=== PATIENT | female | born 1955 | race Caucasian/White ===

== ENCOUNTER 2017-07-16 12:00 | Outpatient (RCR) | payer OTHER, SELFPAY ==
[2017-06-21 00:41] VITALS: BP 174/73; PULSE 69; RESP 16; TEMP 36.8; BMI 51.7
[2017-07-09 12:04] VITALS: PULSE 79; RESP 18; TEMP 37; BMI 51.7
--- NOTE | 2017-07-09 17:36 | PCM.WC.PN ---
(1) Dehiscence of external surgical wound Status: Chronic Current Visit: Yes Qualifiers: Encounter type: subsequent encounter Code(s): T81.31XA - Disruption of external operation (surgical) wound, not elsewhere classified, initial encounter (2) Morbid obesity due to excess calories Status: Chronic Current Visit: Yes Code(s): E66.01 - Morbid (severe) obesity due to excess calories (3) Lymphedema of both lower extremities Status: Chronic Current Visit: Yes Code(s): I89.0 - Lymphedema, not elsewhere classified Type of Wound Date of Service: 07/09/17 Chief Complaint: Dehisced surgical wound right lower leg History of Wound: 62-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 Head area removed but then it dehisced about 2 weeks later. Patient has a cavernous hole in her right ferguson area. Is unable to start radiation until the ulcer is healed. She also has history of diabetes not sure how well controlled Progress of Wound: Wound has improved and is nearly healed. She was diagnosed with cellulitis last week by her PCP and is currently being treated with Keflex 2 capsules twice daily. She has about 3 days left of treatment. She notes improvement in erythema but still has some pain in her right LE where the edema is present. Her pre-albumin was 22, encouraged to eat increase her protein intake and her hemoglobin A1c was 7.1, encouraged tight glycemic control to promote wound healing. Denies odor, increased drainage or fever or chills. - Physical Exam Vital Signs Temp Pulse Resp BP 98.6 F 79 18 174/73 H 07/09/17 12:04 07/09/17 12:04 07/09/17 12:04 06/21/17 00:41 General: Alert, Oriented x3, Cooperative, No apparent distress HEENT: Atraumatic, Normocephalic Oral: Moist Mucosa Abdomen: Obese Extremities: Edema Skin: Ulcer/ Wound, Rash Present Wound Measurements and Assessment CRUZ - Nurse 1 - General Ulcer Measurement Start: 07/09/17 12:04 Freq: Status: Active Protocol: Activity Type Activity Date Activity User E-Sign Co-Sign Detail Recorded Client Recorded Date Recorded By Document 07/09/17 12:04 [place] [id number] 07/09/17 12:17 [place] 07/09/17 12:04 Wound Center Nurse 1 [Ulcer Assessment Protocol: CRUZ.WD.LOC] #1 right ferguson surgical dehiscence -Combined with other wound No -Current Size (cm) - Length 0.1 -Current Size (cm) - Width 0.1 -Current Size (cm) - Depth 0.1 -Total Square Cm 0.01 -Date of Last Picture (Recall this 07/09/17 field) -Photo Taken Yes -Epithelialization Large 67-100% -Tunneling No -Undermining/Tunneling No -Circular Undermining No -Classification - Thickness Full Thickness without Exposed Support Structure -Exudate Amt None Present (0 %) -Granulation Amt None Present (0 %) -Granulation Quality N/A -Slough/Fibrin No -Necrosis Amt None Present (0 %) -Texture (Rupal-wound Skin Appearance) Assessed Localized Edema Scarring -Moisture (Rupal-wound Skin Appearance No Abnormality ) Assessed -Color (Rupal-wound Skin Appearance) Assessed Erythema -Temperature (Rupal-wound Skin No Abnormality Appearance) (Pt Warm) -Tenderness on Palpation (Rupal-wound No Skin Appearance) -Ulcer Cleansing Not Cleansed -Foul Odor after Cleansing No [Edema Assessment] -Lower Limb Edema Present No -Right Calf (cm) 56 -Right Ankle (cm) 33.2 - Nurse 2 - General Ulcer CM Notes Start: 07/09/17 12:04 Freq: Status: Active Protocol: Activity Type Activity Date Activity User E-Sign Co-Sign Detail Recorded Client Recorded Date Recorded By Document 07/09/17 12:49 [id number] 07/09/17 12:58 07/09/17 12:49 Wound Center Nurse 2 [Procedure/Treatment] #1 right ferguson surgical dehiscence -Time 12:49 -Correct Patient Yes -Correct Side, Site, Position Yes -Correct Procedure Yes -Procedure Performed Yes -Type of Procedure Debridement -Clinical Debridement Subcutaneous -Post Debridement Size (cm) - Length 0.5 -Post Debridement Size (cm) - Width 0.7 -Post Debridement Size (cm) - Depth 0.1 -Total Square Cm 0.35 -Wound/Ulcer Outcome Not Healed -Ulcer Cleansing Rinsed/ Irrigated with Saline -Foul Odor after Cleansing No -Bioengineered Tissue No -Cetacaine [place] No -Topical Lidocaine (%) 5 -Bleeding Controlled with Pressure -Treatment Response Procedure Tolerated Well [See Physician Procedure note for Specifics] Pain Scale: 0-10 Numeric [Pain] -Is Patient Pain Free? Yes Psych/Mental Status: Normal Affect, Appropriate Debridement Note Post-Debridement Measurements/Treatment WC - Nurse 2 - General Ulcer CM Notes Start: 07/09/17 12:04 Freq: Status: Active Protocol: Activity Type Activity Date Activity User E-Sign Co-Sign Detail Recorded Client Recorded Date Recorded By Document 07/09/17 12:49 [id number] 07/09/17 12:58 07/09/17 12:49 Wound Center Nurse 2 #1 right ferguson surgical dehiscence -Time 12:49 -Correct Patient Yes -Correct Side, Site, Position Yes -Correct Procedure Yes -Procedure Performed Yes -Type of Procedure Debridement -Clinical Debridement Subcutaneous -Post Debridement Size (cm) - Length 0.5 -Post Debridement Size (cm) - Width 0.7 -Post Debridement Size (cm) - Depth 0.1 -Total Square Cm 0.35 -Wound/Ulcer Outcome Not Healed -Ulcer Cleansing Rinsed/ Irrigated with Saline -Foul Odor after Cleansing No -Bioengineered Tissue No -Cetacaine [place] No -Topical Lidocaine (%) 5 -Bleeding Controlled with Pressure -Treatment Response Procedure Tolerated Well Pain Scale: 0-10 Numeric Is Patient Pain Free? Yes Wound debrided: right [place]erguson Laterality: Right Type of Debridement: Excisional debridement Anesthesia Used: 5% Lidocaine Gel Depth: Down to and including healthy tissue, in the subcutaneous layer Percentage of wound debrided: 100 Instrument Used: 3mm curette Tissue Removed: yellow slough, devitalized tissue Severity: Fat Layer Exposed Amount of bleeding with debridement: Mild Bleeding Controlled with: Compression and gauze Patient tolerated procedure well Assessment/Plan Active Problems Dehiscence of external surgical wound (Chronic) Morbid obesity due to excess calories (Chronic) Lymphedema of both lower extremities (Chronic) Assessment: Dehisced surgical wound right lower leg. Sarcoma right lower leg. Mid obesity. Edema lower extremities. Cellulitis right lower leg Plan: Her wound is improved again this week and is nearly healed. Will have her continue to use Aquacel Ag and gauze with changes daily and use spandigrip for compression. Also extended course of Keflex for 5 addituinal days to treat her cellulitis. Call with any increased drainage, bleeding, fever or chills or increased erythema. Follow-up in 1 week.
[2017-07-16 11:56] VITALS: RESP 16; TEMP 37.2; BMI 51.7
--- NOTE | 2017-07-16 16:58 | PCM.WC.PN ---
(1) Dehiscence of external surgical wound Status: Chronic Current Visit: Yes Qualifiers: Encounter type: subsequent encounter Code(s): T81.31XA - Disruption of external operation (surgical) wound, not elsewhere classified, initial encounter (2) Morbid obesity due to excess calories Status: Chronic Current Visit: Yes Code(s): E66.01 - Morbid (severe) obesity due to excess calories (3) Lymphedema of both lower extremities Status: Chronic Current Visit: Yes Code(s): I89.0 - Lymphedema, not elsewhere classified Type of Wound Date of Service: 07/16/17 Chief Complaint: Dehisced surgical wound right lower leg History of Wound: 62-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 Head area removed but then it dehisced about 2 weeks later. Patient has a cavernous hole in her right [place] area. Is unable to start radiation until the ulcer is healed. She also has history of diabetes not sure how well controlled Progress of Wound: Wound has improved and is nearly healed. She was diagnosed with cellulitis 2 weeks ago by her PCP and is is going to finish Keflex 2 capsules twice daily tonight. She notes continued improvement in erythema and denies any current pain in her right LE where the edema is present. Her pre-albumin was 22, encouraged to eat increase her protein intake and her hemoglobin A1c was 7.1, encouraged tight glycemic control to promote wound healing. Denies odor, increased drainage or fever or chills. - Physical Exam Vital Signs Temp Pulse Resp BP 98.9 F 79 16 174/73 H 07/16/17 11:56 07/09/17 12:04 07/16/17 11:56 06/21/17 00:41 General: Alert, Oriented x3, Cooperative, No apparent distress HEENT: Atraumatic, Normocephalic Oral: Moist Mucosa Abdomen: Obese Extremities: Edema Skin: Ulcer/ Wound Wound Measurements and Assessment CRUZ - Nurse 1 - General Ulcer Measurement Start: 07/09/17 12:04 Freq: Status: Active Protocol: Activity Type Activity Date Activity User E-Sign Co-Sign Detail Recorded Client Recorded Date Recorded By Document 07/16/17 11:56 [facility] [id number] 07/16/17 12:04 [facility] 07/16/17 11:56 Wound Center Nurse 1 [Ulcer Assessment Protocol: CRUZ.WD.LOC] #1 right ferguson surgical dehiscence -Combined with other wound No -Current Size (cm) - Length 0.1 -Current Size (cm) - Width 0.1 -Current Size (cm) - Depth 0.1 -Total Square Cm 0.01 -Epithelialization Large 67-100% -Tunneling No -Undermining/Tunneling No -Exudate Amt None Present (0 %) -Granulation Amt Large (67-100%) -Granulation Quality Red -Slough/Fibrin No -Structure Exposed N/A -Texture (Rupal-wound Skin Appearance) Scarring -Moisture (Rupal-wound Skin Appearance Maceration ) Dry/Scaly -Color (Rupal-wound Skin Appearance) Hemosiderin Staining -Temperature ([place]-wound Skin No Abnormality Appearance) (Pt Warm) -Tenderness on Palpation (Rupal-wound No Skin Appearance) -Ulcer Cleansing Rinsed/ Irrigated with Saline -Foul Odor after Cleansing No -Anesthetic Used 5% Lidocaine Gel [Edema Assessment] -Lower Limb Edema Present Yes -Right Calf (cm) 59 -Right Ankle (cm) 34.1 WC - Nurse 2 - General Ulcer CM Notes Start: 07/09/17 12:04 Freq: Status: Active Protocol: Activity Type Activity Date Activity User E-Sign Co-Sign Detail Recorded Client Recorded Date Recorded By Document 07/16/17 12:44 [id number] 07/16/17 12:45 07/16/17 12:44 Wound Center Nurse 2 [Procedure/Treatment] #1 right ferguson surgical dehiscence -Time 12:44 -Correct Patient Yes -Correct Side, Site, Position Yes -Correct Procedure Yes -Procedure Performed Yes -Type of Procedure Debridement -Clinical Debridement Subcutaneous -Post Debridement Size (cm) - Length 0.6 -Post Debridement Size (cm) - Width 0.2 -Post Debridement Size (cm) - Depth 0.1 -Total Square Cm 0.12 -Wound/Ulcer Outcome Not Healed -Ulcer Cleansing Rinsed/ Irrigated with Saline -Foul Odor after Cleansing No -Bioengineered Tissue No -Cetacaine [place] No -Topical Lidocaine (%) 5 -Bleeding Controlled with Pressure -Treatment Response Procedure Tolerated Well [See Physician Procedure note for Specifics] Pain Scale: 0-10 Numeric [Pain] -Is Patient Pain Free? Yes Psych/Mental Status: Normal Affect, Appropriate Debridement Note Post-Debridement Measurements/Treatment WC - Nurse 2 - General Ulcer CM Notes Start: 07/09/17 12:04 Freq: Status: Active Protocol: Activity Type Activity Date Activity User E-Sign Co-Sign Detail Recorded Client Recorded Date Recorded By Document 07/09/17 12:49 [id number] 07/09/17 12:58 TM Document 07/16/17 12:44 [id number] 07/16/17 12:45 TM 07/09/17 07/16/17 12:49 12:44 Wound Center Nurse 2 #1 right ferguson surgical dehiscence -Time 12:49 12:44 -Correct Patient Yes Yes -Correct Side, Site, Position Yes Yes -Correct Procedure Yes Yes -Procedure Performed Yes Yes -Type of Procedure Debridement Debridement -Clinical Debridement Subcutaneous Subcutaneous -Post Debridement Size (cm) - Length 0.5 0.6 -Post Debridement Size (cm) - Width 0.7 0.2 -Post Debridement Size (cm) - Depth 0.1 0.1 -Total Square Cm 0.35 0.12 -Wound/Ulcer Outcome Not Healed Not Healed -Ulcer Cleansing Rinsed/ Rinsed/ Irrigated with Irrigated with Saline Saline -Foul Odor after Cleansing No No -Bioengineered Tissue No No -Cetacaine [place] No No -Topical Lidocaine (%) 5 5 -Bleeding Controlled with Pressure Pressure -Treatment Response Procedure Procedure Tolerated Well Tolerated Well Pain Scale: 0-10 Numeric Is Patient Pain Free? Yes Yes Wound debrided: right ferguson surgical dehiscence Laterality: Right Type of Debridement: Excisional debridement Anesthesia Used: 4% Lidocaine Solution Depth: Down to and including healthy tissue, in the subcutaneous layer Percentage of wound debrided: 100 Instrument Used: 3mm curette Tissue Removed: yellow slough, devitalized tissue Severity: Fat Layer Exposed Amount of bleeding with debridement: Mild Bleeding Controlled with: Compression and gauze Patient tolerated procedure well Assessment/Plan Active Problems Dehiscence of external surgical wound (Chronic) Morbid obesity due to excess calories (Chronic) Lymphedema of both lower extremities (Chronic) Assessment: Dehisced surgical wound right lower leg. Sarcoma right lower leg. Mid obesity. Edema lower extremities. Cellulitis right lower leg Plan: Her wound is improved again this week and is nearly healed. Will have her change to collagen hydrogel and use her compression stockings for compression. Complete antibiotics and call if increased erythema or pain. Call with any increased drainage, bleeding, fever or chills or increased erythema. Follow-up in 1 week.
--- NOTE | 2017-07-16 17:08 | PN.PCM_ITS ---
(1) Dehiscence of external surgical wound Status: Chronic Current Visit: Yes Qualifiers: Encounter type: subsequent encounter Code(s): T81.31XA - Disruption of external operation (surgical) wound, not elsewhere classified, initial encounter (2) Morbid obesity due to excess calories Status: Chronic Current Visit: Yes Code(s): E66.01 - Morbid (severe) obesity due to excess calories (3) Lymphedema of both lower extremities Status: Chronic Current Visit: Yes Code(s): I89.0 - Lymphedema, not elsewhere classified Type of Wound Date of Service: 07/16/17 Chief Complaint: Dehisced surgical wound right lower leg History of Wound: 62-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 Head area removed but then it dehisced about 2 weeks later. Patient has a cavernous hole in her right ferguson area. Is unable to start radiation until the ulcer is healed. She also has history of diabetes not sure how well controlled Progress of Wound: Wound has improved and is nearly healed. She was diagnosed with cellulitis 2 weeks ago by her PCP and is is going to finish Keflex 2 capsules twice daily tonight. She notes continued improvement in erythema and denies any current pain in her right LE where the edema is present. Her pre- albumin was 22, encouraged to eat increase her protein intake and her hemoglobin A1c was 7.1, encouraged tight glycemic control to promote wound healing. Denies odor, increased drainage or fever or chills. - Physical Exam Vital Signs Temp Pulse Resp BP 98.9 F 79 16 174/73 H 07/16/17 11:56 07/09/17 12:04 07/16/17 11:56 06/21/17 00:41 General: Alert, Oriented x3, Cooperative, No apparent distress HEENT: Atraumatic, Normocephalic Oral: Moist Mucosa Abdomen: Obese Extremities: Edema Skin: Ulcer/ Wound Wound Measurements and Assessment CRUZ - Nurse 1 - General Ulcer Measurement Start: 07/09/17 12:04 Freq: Status: Active Protocol: Activity Type Activity Date Activity User E-Sign Co-Sign Detail Recorded Client Recorded Date Recorded By Document 07/16/17 11:56 [facility] [id number] 07/16/17 12:04 [facility] 07/16/17 11:56 Wound Center Nurse 1 [Ulcer Assessment Protocol: CRUZ.WD.LOC] #1 right ferguson surgical dehiscence -Combined with other wound No -Current Size (cm) - Length 0.1 -Current Size (cm) - Width 0.1 -Current Size (cm) - Depth 0.1 -Total Square Cm 0.01 -Epithelialization Large 67-100% -Tunneling No -Undermining/Tunneling No -Exudate Amt None Present (0 %) -Granulation Amt Large (67-100%) -Granulation Quality Red -Slough/Fibrin No -Structure Exposed N/A -Texture (Rupal-wound Skin Appearance) Scarring -Moisture (Rupal-wound Skin Appearance Maceration ) Dry/Scaly -Color (Rupal-wound Skin Appearance) Hemosiderin Staining -Temperature (Rupal-wound Skin No Abnormality Appearance) (Pt Warm) -Tenderness on Palpation (Rupal-wound No Skin Appearance) -Ulcer Cleansing Rinsed/ Irrigated with Saline -Foul Odor after Cleansing No -Anesthetic Used 5% Lidocaine Gel [Edema Assessment] -Lower Limb Edema Present Yes -Right Calf (cm) 59 -Right Ankle (cm) 34.1 WC - Nurse 2 - General Ulcer CM Notes Start: 07/09/17 12:04 Freq: Status: Active Protocol: Activity Type Activity Date Activity User E-Sign Co-Sign Detail Recorded Client Recorded Date Recorded By Document 07/16/17 12:44 [id number] 07/16/17 12:45 07/16/17 12:44 Wound Center Nurse 2 [Procedure/Treatment] #1 right ferguson surgical dehiscence -Time 12:44 -Correct Patient Yes -Correct Side, Site, Position Yes -Correct Procedure Yes -Procedure Performed Yes -Type of Procedure Debridement -Clinical Debridement Subcutaneous -Post Debridement Size (cm) - Length 0.6 -Post Debridement Size (cm) - Width 0.2 -Post Debridement Size (cm) - Depth 0.1 -Total Square Cm 0.12 -Wound/Ulcer Outcome Not Healed -Ulcer Cleansing Rinsed/ Irrigated with Saline -Foul Odor after Cleansing No -Bioengineered Tissue No -Cetacaine [place] No -Topical Lidocaine (%) 5 -Bleeding Controlled with Pressure -Treatment Response Procedure Tolerated Well [See Physician Procedure note for Specifics] Pain Scale: 0-10 Numeric [Pain] -Is Patient Pain Free? Yes Psych/Mental Status: Normal Affect, Appropriate Debridement Note Post-Debridement Measurements/Treatment WC - Nurse 2 - General Ulcer CM Notes Start: 07/09/17 12:04 Freq: Status: Active Protocol: Activity Type Activity Date Activity User E-Sign Co-Sign Detail Recorded Client Recorded Date Recorded By Document 07/09/17 12:49 [id number] 07/09/17 12:58 TM Document 07/16/17 12:44 [id number] 07/16/17 12:45 TM 07/09/17 07/16/17 12:49 12:44 Wound Center Nurse 2 #1 right ferguson surgical dehiscence -Time 12:49 12:44 -Correct Patient Yes Yes -Correct Side, Site, Position Yes Yes -Correct Procedure Yes Yes -Procedure Performed Yes Yes -Type of Procedure Debridement Debridement -Clinical Debridement Subcutaneous Subcutaneous -Post Debridement Size (cm) - Length 0.5 0.6 -Post Debridement Size (cm) - Width 0.7 0.2 -Post Debridement Size (cm) - Depth 0.1 0.1 -Total Square Cm 0.35 0.12 -Wound/Ulcer Outcome Not Healed Not Healed -Ulcer Cleansing Rinsed/ Rinsed/ Irrigated with Irrigated with Saline Saline -Foul Odor after Cleansing No No -Bioengineered Tissue No No -Cetacaine [place] No No -Topical Lidocaine (%) 5 5 -Bleeding Controlled with Pressure Pressure -Treatment Response Procedure Procedure Tolerated Well Tolerated Well Pain Scale: 0-10 Numeric Is Patient Pain Free? Yes Yes Wound debrided: right ferguson surgical dehiscence Laterality: Right Type of Debridement: Excisional debridement Anesthesia Used: 4% Lidocaine Solution Depth: Down to and including healthy tissue, in the subcutaneous layer Percentage of wound debrided: 100 Instrument Used: 3mm curette Tissue Removed: yellow slough, devitalized tissue Severity: Fat Layer Exposed Amount of bleeding with debridement: Mild Bleeding Controlled with: Compression and gauze Patient tolerated procedure well Assessment/Plan Active Problems Dehiscence of external surgical wound (Chronic) Morbid obesity due to excess calories (Chronic) Lymphedema of both lower extremities (Chronic) Assessment: Dehisced surgical wound right lower leg. Sarcoma right lower leg. Mid obesity. Edema lower extremities. Cellulitis right lower leg Plan: Her wound is improved again this week and is nearly healed. Will have her change to collagen hydrogel and use her compression stockings for compression. Complete antibiotics and call if increased erythema or pain. Call with any increased drainage, bleeding, fever or chills or increased erythema. Follow-up in 1 week.
== END 2017-07-21 23:59 ==
LOC: WC 12:00
PROVIDERS: Visit Provider Family Medicine
DX: T81.31XA Disruption of external operation (surgical) wound, not elsewhere classified, initial encounter (principal); Y83.8 Other surgical procedures as the cause of abnormal reaction of the patient, or of later complication, without mention of misadventure at the time of the procedure; E66.01 Morbid (severe) obesity due to excess calories; Z71.3 Dietary counseling and surveillance; I89.0 Lymphedema, not elsewhere classified; Z85.830 Personal history of malignant neoplasm of bone; L03.115 Cellulitis of right lower limb
CPT/HCPCS: 11042

== ENCOUNTER 2017-07-23 09:09 | Outpatient (RCR) | payer OTHER, SELFPAY ==
[2017-06-21 00:41] VITALS: BP 174/73
[2017-07-22 00:33] VITALS: PULSE 79; RESP 16; TEMP 37.2
[2017-07-23 12:27] VITALS: BP 151/78; PULSE 74; RESP 16; TEMP 37.1; BMI 51.7
--- NOTE | 2017-07-23 17:15 | PCM.WC.PN ---
(1) Dehiscence of external surgical wound Status: Chronic Current Visit: Yes Qualifiers: Encounter type: subsequent encounter Code(s): T81.31XA - Disruption of external operation (surgical) wound, not elsewhere classified, initial encounter (2) Morbid obesity due to excess calories Status: Chronic Current Visit: Yes Code(s): E66.01 - Morbid (severe) obesity due to excess calories (3) Sarcoma of right lower extremity Status: Resolved Current Visit: Yes Code(s): C49.21 - Malignant neoplasm of connective and soft tissue of right lower limb, including hip (4) Diabetes mellitus type 2 with neurological manifestations Status: Chronic Current Visit: Yes Code(s): E11.49 - Type 2 diabetes mellitus with other diabetic neurological complication (5) Lymphedema of both lower extremities Status: Chronic Current Visit: Yes Code(s): I89.0 - Lymphedema, not elsewhere classified Type of Wound Date of Service: 07/23/17 Chief Complaint: Dehisced surgical wound right lower leg History of Wound: 62-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 Head area removed but then it dehisced about 2 weeks later. Patient has a cavernous hole in her right ferguson area. Is unable to start radiation until the ulcer is healed. She also has history of diabetes that is under adequate control. Progress of Wound: Wound is healed. Denies odor, increased drainage or fever or chills. - Physical Exam Vital Signs Temp Pulse Resp BP 98.7 F 74 16 151/78 H 07/23/17 12:27 07/23/17 12:27 07/23/17 12:27 07/23/17 12:27 General: Alert, Oriented x3, Cooperative, No apparent distress HEENT: Atraumatic, Normocephalic Oral: Moist Mucosa Abdomen: Obese Extremities: Edema Skin: Ulcer/ Wound Wound Measurements and Assessment CRUZ - Nurse 1 - General Ulcer Measurement Start: 07/23/17 12:27 Freq: Status: Active Protocol: Activity Type Activity Date Activity User E-Sign Co-Sign Detail Recorded Client Recorded Date Recorded By Document 07/23/17 12:27 [facility] [id number] 07/23/17 12:36 [facility] 07/23/17 12:27 Wound Center Nurse 1 [Ulcer Assessment Protocol: CRUZ.DIDIER.LOC] #1 right [place]erguson surgical dehiscence -Combined with other wound No -Current Size (cm) - Length 0.1 -Current Size (cm) - Width 0.1 -Current Size (cm) - Depth 0.1 -Total Square Cm 0.01 -Epithelialization Large 67-100% -Structure Exposed N/A -Texture (Rupal-wound Skin Appearance) Scarring -Moisture (Rupal-wound Skin Appearance Dry/Scaly ) -Color (Rupal-wound Skin Appearance) Assessed -Temperature (Rupal-wound Skin No Abnormality Appearance) (Pt Warm) -Tenderness on Palpation (Rupal-wound No Skin Appearance) -Ulcer Cleansing Rinsed/ Irrigated with Saline -Foul Odor after Cleansing No -Anesthetic Used 5% Lidocaine Gel [Edema Assessment] -Lower Limb Edema Present Yes -Right Calf (cm) 57 -Right Ankle (cm) 34.1 - Nurse 2 - General Ulcer CM Notes Start: 07/23/17 12:27 Freq: Status: Active Protocol: Activity Type Activity Date Activity User E-Sign Co-Sign Detail Recorded Client Recorded Date Recorded By Document 07/23/17 13:02 [id number] 07/23/17 13:09 07/23/17 13:02 Wound Center Nurse 2 [Procedure/Treatment] #1 right ferguson surgical dehiscence -Time 13:06 -Correct Patient Yes -Correct Side, Site, Position Yes -Correct Procedure Yes -Procedure Performed Yes -Post Debridement Size (cm) - Length 0 -Post Debridement Size (cm) - Width 0 -Post Debridement Size (cm) - Depth 0 -Total Square Cm 0 -Wound/Ulcer Outcome Healed- Epithelialized -Ulcer Cleansing Rinsed/ Irrigated with Saline -Foul Odor after Cleansing No -Bioengineered Tissue No -Cetacaine [place] No -Bleeding Controlled with NA -Treatment Response Procedure Tolerated Well [See Physician Procedure note for Specifics] Pain Scale: 0-10 Numeric [Pain] -Is Patient Pain Free? Yes Psych/Mental Status: Normal Affect, Appropriate Debridement Note Post-Debridement Measurements/Treatment - Nurse 2 - General Ulcer CM Notes Start: 07/23/17 12:27 Freq: Status: Active Protocol: Activity Type Activity Date Activity User E-Sign Co-Sign Detail Recorded Client Recorded Date Recorded By Document 07/23/17 13:02 [id number] 07/23/17 13:09 07/23/17 13:02 Wound Center Nurse 2 #1 right ferguson surgical dehiscence -Time 13:06 -Correct Patient Yes -Correct Side, Site, Position Yes -Correct Procedure Yes -Procedure Performed Yes -Post Debridement Size (cm) - Length 0 -Post Debridement Size (cm) - Width 0 -Post Debridement Size (cm) - Depth 0 -Total Square Cm 0 -Wound/Ulcer Outcome Healed- Epithelialized -Ulcer Cleansing Rinsed/ Irrigated with Saline -Foul Odor after Cleansing No -Bioengineered Tissue No -Cetacaine [place] No -Bleeding Controlled with NA -Treatment Response Procedure Tolerated Well Pain Scale: 0-10 Numeric Is Patient Pain Free? Yes No debridement was completed today Assessment/Plan Active Problems Dehiscence of external surgical wound (Chronic) Morbid obesity due to excess calories (Chronic) Diabetes mellitus type 2 with neurological manifestations (Chronic) Lymphedema of both lower extremities (Chronic) Assessment: Dehisced surgical wound right lower leg. Sarcoma right lower leg. Mid obesity. Edema lower extremities. Cellulitis right lower leg Plan: Her wound is healed. Will have her continue to use her compression stockings for compression. Encouraged her to protect the ferguson area if she is doing anything that would risk injuring the area. Encouraged her to call with any increased drainage, bleeding, fever or chills or increased erythema. Follow-up as needed. Pt. is discharged from treatment.
--- NOTE | 2017-07-23 17:32 | PN.PCM_ITS ---
(1) Dehiscence of external surgical wound Status: Chronic Current Visit: Yes Qualifiers: Encounter type: subsequent encounter Code(s): T81.31XA - Disruption of external operation (surgical) wound, not elsewhere classified, initial encounter (2) Morbid obesity due to excess calories Status: Chronic Current Visit: Yes Code(s): E66.01 - Morbid (severe) obesity due to excess calories (3) Sarcoma of right lower extremity Status: Resolved Current Visit: Yes Code(s): C49.21 - Malignant neoplasm of connective and soft tissue of right lower limb, including hip (4) Diabetes mellitus type 2 with neurological manifestations Status: Chronic Current Visit: Yes Code(s): E11.49 - Type 2 diabetes mellitus with other diabetic neurological complication (5) Lymphedema of both lower extremities Status: Chronic Current Visit: Yes Code(s): I89.0 - Lymphedema, not elsewhere classified Type of Wound Date of Service: 07/23/17 Chief Complaint: Dehisced surgical wound right lower leg History of Wound: 62-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 Head area removed but then it dehisced about 2 weeks later. Patient has a cavernous hole in her right ferguson area. Is unable to start radiation until the ulcer is healed. She also has history of diabetes that is under adequate control. Progress of Wound: Wound is healed. Denies odor, increased drainage or fever or chills. - Physical Exam Vital Signs Temp Pulse Resp BP 98.7 F 74 16 151/78 H 07/23/17 12:27 07/23/17 12:27 07/23/17 12:27 07/23/17 12:27 General: Alert, Oriented x3, Cooperative, No apparent distress HEENT: Atraumatic, Normocephalic Oral: Moist Mucosa Abdomen: Obese Extremities: Edema Skin: Ulcer/ Wound Wound Measurements and Assessment CRUZ - Nurse 1 - General Ulcer Measurement Start: 07/23/17 12:27 Freq: Status: Active Protocol: Activity Type Activity Date Activity User E-Sign Co-Sign Detail Recorded Client Recorded Date Recorded By Document 07/23/17 12:27 [facility] [id number] 07/23/17 12:36 [facility] 07/23/17 12:27 Wound Center Nurse 1 [Ulcer Assessment Protocol: CRUZ.DIDIER.LOC] #1 right ferguson surgical dehiscence -Combined with other wound No -Current Size (cm) - Length 0.1 -Current Size (cm) - Width 0.1 -Current Size (cm) - Depth 0.1 -Total Square Cm 0.01 -Epithelialization Large 67-100% -Structure Exposed N/A -Texture (Rupal-wound Skin Appearance) Scarring -Moisture (Rupal-wound Skin Appearance Dry/Scaly ) -Color (Rupal-wound Skin Appearance) Assessed -Temperature (Rupal-wound Skin No Abnormality Appearance) (Pt Warm) -Tenderness on Palpation (Rupal-wound No Skin Appearance) -Ulcer Cleansing Rinsed/ Irrigated with Saline -Foul Odor after Cleansing No -Anesthetic Used 5% Lidocaine Gel [Edema Assessment] -Lower Limb Edema Present Yes -Right Calf (cm) 57 -Right Ankle (cm) 34.1 - Nurse 2 - General Ulcer CM Notes Start: 07/23/17 12:27 Freq: Status: Active Protocol: Activity Type Activity Date Activity User E-Sign Co-Sign Detail Recorded Client Recorded Date Recorded By Document 07/23/17 13:02 [id number] 07/23/17 13:09 07/23/17 13:02 Wound Center Nurse 2 [Procedure/Treatment] #1 right ferguson surgical dehiscence -Time 13:06 -Correct Patient Yes -Correct Side, Site, Position Yes -Correct Procedure Yes -Procedure Performed Yes -Post Debridement Size (cm) - Length 0 -Post Debridement Size (cm) - Width 0 -Post Debridement Size (cm) - Depth 0 -Total Square Cm 0 -Wound/Ulcer Outcome Healed- Epithelialized -Ulcer Cleansing Rinsed/ Irrigated with Saline -Foul Odor after Cleansing No -Bioengineered Tissue No -Cetacaine [place] No -Bleeding Controlled with NA -Treatment Response Procedure Tolerated Well [See Physician Procedure note for Specifics] Pain Scale: 0-10 Numeric [Pain] -Is Patient Pain Free? Yes Psych/Mental Status: Normal Affect, Appropriate Debridement Note Post-Debridement Measurements/Treatment - Nurse 2 - General Ulcer CM Notes Start: 07/23/17 12:27 Freq: Status: Active Protocol: Activity Type Activity Date Activity User E-Sign Co-Sign Detail Recorded Client Recorded Date Recorded By Document 07/23/17 13:02 [id number] 07/23/17 13:09 07/23/17 13:02 Wound Center Nurse 2 #1 right ferguson surgical dehiscence -Time 13:06 -Correct Patient Yes -Correct Side, Site, Position Yes -Correct Procedure Yes -Procedure Performed Yes -Post Debridement Size (cm) - Length 0 -Post Debridement Size (cm) - Width 0 -Post Debridement Size (cm) - Depth 0 -Total Square Cm 0 -Wound/Ulcer Outcome Healed- Epithelialized -Ulcer Cleansing Rinsed/ Irrigated with Saline -Foul Odor after Cleansing No -Bioengineered Tissue No -Cetacaine [place] No -Bleeding Controlled with NA -Treatment Response Procedure Tolerated Well Pain Scale: 0-10 Numeric Is Patient Pain Free? Yes No debridement was completed today Assessment/Plan Active Problems Dehiscence of external surgical wound (Chronic) Morbid obesity due to excess calories (Chronic) Diabetes mellitus type 2 with neurological manifestations (Chronic) Lymphedema of both lower extremities (Chronic) Assessment: Dehisced surgical wound right lower leg. Sarcoma right lower leg. Mid obesity. Edema lower extremities. Cellulitis right lower leg Plan: Her wound is healed. Will have her continue to use her compression stockings for compression. Encouraged her to protect the [place] area if she is doing anything that would risk injuring the area. Encouraged her to call with any increased drainage, bleeding, fever or chills or increased erythema. Follow -up as needed. Pt. is discharged from treatment.
== END 2017-08-18 23:59 ==
LOC: WC 09:09
PROVIDERS: Visit Provider Family Medicine
DX: Z09 Encounter for follow-up examination after completed treatment for conditions other than malignant neoplasm (principal); E66.01 Morbid (severe) obesity due to excess calories; Z71.3 Dietary counseling and surveillance; E11.49 Type 2 diabetes mellitus with other diabetic neurological complication; C49.21 Malignant neoplasm of connective and soft tissue of right lower limb, including hip; I89.0 Lymphedema, not elsewhere classified
CPT/HCPCS: 99213; G0463

== ENCOUNTER → 2017-07-29 15:29 | Outpatient (CLI) | payer OTHER, SELFPAY ==
[2017-07-23 12:27] VITALS: BP 151/78
--- NOTE | 2017-07-29 16:03 | CT_ITS ---
STUDY: CT CHEST WITH CONTRAST REASON FOR EXAM: Female, 62 years old. Sarcoma removed from leg, history of hypertension and diabetes RADIATION DOSAGE (If Supplied By Facility): CTDIvol = ( 21.63 ) mGy, DLP = ( 706.28 ) mGycm TECHNIQUE: Transaxial imaging was performed following intravenous administration of 100 ml of Isovue 300 contrast material. Multiplanar coronal and sagittal images were reformatted. Individualized dose optimization techniques were used for this CT. COMPARISON: 12/25/2016 FINDINGS: There is minimal dependent atelectasis at the lung bases. There is no demonstrated pleural abnormality. Normal heart and pericardium. There are calcifications of the coronary arteries. There are multiple small lymph nodes within the mediastinum, which are normal in size and morphology most compatible with reactive lymph hyperplasia. Normal hilar regions. Normal enhanced pulmonary arteries. There is atherosclerotic calcification of the aortic arch with tortuosity and elongation of the aortic arch and descending thoracic aorta. There are multi-level degenerative changes of the thoracic spine. There are benign appearing axillary lymph nodes noted. There is no demonstrated abnormality of the visualized upper abdomen. CT/Chest WITH Contrast IMPRESSION: Mild basilar atelectasis. Atherosclerotic vascular changes. No focal mass or nodule. Electronically Signed: Ernie Goddard DO at 11:11 EST Tel , Service support ,
[2017-07-29 16:21] LABS: CREATININE FINGERSTICK 0.9 mg/dL (0.55-1.02)
[2017-07-29 17:42] LABS: BUN 17 mg/dL (7-18); Creatinine, Serum 0.64 mg/dL (0.55-1.02); EST Glomerular Filtration Rate 99 mL/min (>60); Est Glom Filt Rate - Afr Amer 119 mL/min (>60)
== END ==
PROVIDERS: Visit Provider Orthopaedic Surgery
DX: C49.21 Malignant neoplasm of connective and soft tissue of right lower limb, including hip (principal)
CPT/HCPCS: 36415; 71260; 82565; 84520; Q9967

== ENCOUNTER 2018-05-14 12:32 | Inpatient (IN) | payer OTHER, SELFPAY ==
[2018-05-14] VITALS (10 sets, daily range): BP systolic 113–147; BP diastolic 46–80; PULSE 67–82; RESP 16–20; TEMP 36.8–37.1; O2SAT 93–98; BMI 56.5; BMI 54.3
--- NOTE | 2018-05-14 13:12 | US_ITS ---
STUDY: ULTRASOUND TRANSVAGINAL CLINICAL: Female, 63 years old. Vaginal bleeding with large clots. TECHNIQUE: Transvaginal (Transvaginal imaging erformed for enhanced visualization of uterus and endometrium, and posterior adnexal structures). COMPARISON: None. FINDINGS: Midline anteverted uterus measures 12.0 x 5.7 x 5.9 cm. The endometrial thickness is 18.40 m, just over the upper limits of normal, with normal echotexture. There is no endometrial canal fluid. Markedly abnormal endometrium for a postmenopausal female. There are no specific masslike features within the endometrial canal. Nabothian cysts of the cervix. The right and left ovaries are not visible. The examination is limited secondary to body habitus constraints and limited mobility of the patient. There is no visible adnexal mass, cyst or free fluid. There is no visible cul-de-sac free fluid. US/Transvaginal Non- IMPRESSION: Markedly abnormal thickening of the endometrium is nonspecific. This may reflect hyperplasia. Malignancy is not excluded. ObGyn consultation is recommended. Electronically Signed: Jonathan Mercado MD at 15:50 EST Tel , Service support ,
[2018-05-14 14:04] LABS: Absolute Lymphocyte Count 1.37 X10^3/ul (0.83-4.51); Absolute Neutrophil Count 3.3 X10^3/uL (2.0-7.7); Basophil# 0.01 X10^3/uL; Basophil% 0.2 % (0-1); Eosinophils% 1.9 % (0-5); Hematocrit 24.1 % (37-47); Hemoglobin 7.5 g/dl (12.0-15.0); Lymphocyte # 1.37 X10^3/ul (4.0); Lymphocyte % 26.5 % (19-41); Mean Corp Hgb Conc 31.1 g/gl (32-36); Mean Corpuscular Hgb 26.4 pg (27.0-32.0); Mean Corpuscular Volume 84.9 fL (81-99); Mean Platelet Vol. 9.6 fl (6.2-12.0); Monocyte# 0.39 X10^3/uL; Monocyte% 7.5 % (0-10); Neutrophil # 3.29 X10^3/uL (2.7-7.7); Neutrophil % 63.7 % (47-70); Platelet Count 177 K/mm3 (150-450); RBC Distribution Width CV 14.4 % (11.6-14.6); RBC Distribution Width SD 44.9 fl (35.1-43.9); Red Blood Count 2.84 M/mm3 (4.2-5.4); White Blood Count 5.2 K/mm3 (4.4-11.0)
[2018-05-14 14:06] LABS: POSITIVE COUNT NO; POSITIVE DIFFERENTIAL NO; POSITIVE MORPHOLOGY NO
--- NOTE | 2018-05-14 15:56 | ED.VISSUMM ---
- ER Visit Summary Date of Service: 05/14/18 Chief Complaint: Vaginal bleeding History of Present Illness: The patient is a 63 F who says she had about 48 pads every 24 hours for the past 2 days. She is complaining of quite a bit of vaginal bleeding with big clots. She feels weak and lightheaded. She has no abdominal pain no pelvic pain. She has no chest pain or shortness of breath. Physical Examination: Not appear in acute distress. Moist mucous membranes, no obvious facial deformity No C-spine tenderness supple neck. Regular rate and rhythm without any obvious murmurs Clear lungs bilaterally speaking in full sentences without any obvious respiratory distress Abdomen soft and nontender no guarding or rebound Pelvic exam shows some vaginal bleeding with some pulling. Moves all extremities without any difficulty or pain. Skin does not show any obvious rashes or lesions, no trauma. Alert oriented ?3 with no gross focal deficit Emergency Department Course and Treatment: Patient is found to be anemic, I transfused her. I gave her tranexamic acid. We do not have any progesterone equivalents in the hospital. I discussed the patient with Dr. Souza patient will be admitted to the floor. If she worsens she will be evaluated. Disposition: Admitted in guarded condition Impression: Vaginal bleeding Anemia secondary to blood loss This note was generated with [employer] dictation software. It may contain incorrect words, spelling, and punctuation that were not noted in review of the chart prior to signing ED Disposition - Plan for ED Patient: Chief Complaint: Vag Bleeding Referrals: Thanh Dean MD [Primary Care Provider] -
--- NOTE | 2018-05-14 16:03 | NURSING ---
MED SURG SEALS VAGINAL BLEED, ANEMIA
--- NOTE | 2018-05-14 17:15 | HP.PCM_ITS ---
Problem List (1) Diabetes mellitus type 2 with neurological manifestations Status: Chronic (2) Lymphedema of both lower extremities Status: Chronic (3) Morbid obesity due to excess calories Status: Chronic History of Present Illness Date of Admission: 05/14/18 Chief Complaint: Shortness of breath. The patient is a 63 year old F who presents emergency room due to shortness of breath. Patient has chronic hypoxic respiratory failure due to COPD and chronic diastolic CHF requiring 6 L nasal cannula continuously at baseline. Patient states she has had increased shortness of breath for a few weeks. She denies cough, fever, chills. She smokes a pack and 1/2/day. Denies known weight gain, denies increase in lower extremity swelling. Patient states she is noncompliant with recommended continuous supplemental oxygen of 6 L nasal cannula due to it giving her headache. She has a past medical history of obstructive sleep apnea, chronic tobacco use, bilateral lower extremity lymphedema, super morbid obesity, history of PE, chronic hypoxic respiratory failure due to chronic COPD and chronic diastolic CHF, hypertension, hyperlipidemia, depression, pulmonary hypertension, hypothyroidism. Past Medical History Past Medical History (Chronic Problems): Chronic Problems Lymphedema of both lower extremities (Chronic) Diabetes mellitus type 2 with neurological manifestations (Chronic) Morbid obesity due to excess calories (Chronic) Allergies Penicillins Allergy (Verified 02/23/17 17:02) Rash Home Medications: Ambulatory Orders Medication Instructions Recorded Amlodipine [Norvasc] 10 mg PO DAILY 02/23/17 Aspirin [Aspirin EC] 325 mg PO DAILY 02/23/17 Atenolol [Tenormin (Beta Christianne)] 100 mg PO DAILY 02/23/17 Dorzolamide 2% [Trusopt] 2 drop EACH EYE TID 02/23/17 Fluoxetine HCl [Prozac] 20 mg PO DAILY 02/23/17 Gabapentin [Neurontin] 300 mg PO TIDCM 02/23/17 Glimepiride [Amaryl] 1 mg PO DAILY 02/23/17 Latanoprost 0.005% [Xalatan 1 drop EACH EYE QHS 02/23/17 Opthalmic] Losartan/Hydrochlorothiazide 1 tab PO DAILY 02/23/17 [Hyzaar 100-25 Tablet] Metformin HCl [Glucophage] 1,000 mg PO BIDCM 02/23/17 Naproxen [Naprosyn] 500 mg PO BID 02/23/17 Pravastatin [Pravachol] 40 mg PO QHS 02/23/17 Ropinirole HCl [Requip] 1 mg PO TID 02/23/17 Furosemide [Lasix] 20 mg PO DAILY 02/26/17 Surgical History: - - 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, cholecystectomy, section Psychiatric History: Depression Lives: Alone Smoking Status: Current every day smoker - 1.5 PPD Tobacco Use: Cigarettes Alcohol: None Drugs: None - *Family History Maternal History Items: - - Denies known cardiac history Paternal History Items: - - Denies known cardiac history Review of Systems Constitutional: Denies: Chills, Fever, Weight Change HEENT: Denies: Head Aches, Sinus Congestion, Sinus Drainage Cardiovascular: Reports: Edema - Chronic, bilateral lower extremities. Denies: Chest Pain, Light Headedness, Palpitations, Syncope Respiratory: Reports: Shortness of Breath. Denies: Cough, Sputum production, Wheezing Gastrointestinal: Denies: Abdominal Pain, Nausea, Vomiting Genitourinary: Denies: Dysuria Musculoskeletal: Denies: Joint Pain, Joint Tenderness Skin: Reports: - - Chronic skin changes bilateral lower extremities. Denies: Rash, Wounds Neurological: Denies: Numbness, Tingling, Focal weakness Psychiatric: Reports: Depression Hematologic/ Lymphatic: Denies: Easy Bruising, Easy Bleeding VTE Information - Inpt Only VTE Present on Admission: No VTE Mechan Device Prophylaxis: None VTE Pharm Prophylaxis ordered?: Yes - Physical Exam General: Alert, Oriented x3, Cooperative HEENT: Atraumatic, PERRLA, EOMI, Normocephalic Oral: Moist Mucosa Neck: Supple, No JVD, Negative Carotid Bruits Lungs: Clear to auscultation, Diminished Cardiovascular: Regular rate, Regular Rhythm, Normal S1, Normal S2, No murmurs Abdomen: Bowel Sounds Present, Soft, Non Tender, Non-Distended, Obese Extremities: No clubbing, No cyanosis, Capillary Refill Less than 3 Seconds, Edema - Chronic lymphedema bilateral lower extremities Skin: No rashes, No breakdown, - - Chronic skin changes bilateral lower extremities, redness bilateral lower extremities. Musculoskeletal: No Tenderness to Palpation of Joints or Extremities Neurological: Cranial nerves II-XII grossly intact, Neuro grossly intact Psych/Mental Status: Anxious Vital Signs Temp Pulse Resp BP Pulse Ox 98.7 F 82 17 147/52 H 93 11/18 12:34 05/14/18 16:18 05/14/18 16:18 05/14/18 16:18 05/14/18 16:18 Oxygen Delivery Method Room Air Weight: 360 lb 14.347 oz Body Mass Index (BMI) 56.5 Laboratory Tests Past 24 Hrs 05/14/18 05/14/18 13:40 16:50 WBC 5.2 RBC 2.84 L Hgb 7.5 L Hct 24.1 L MCV 84.9 MCH 26.4 L MCHC 31.1 L RDW 14.4 RDW Differential 44.9 H Plt Count 177 MPV 9.6 Immature Gran % (Auto) 0.200 Neut % (Auto) 63.7 Lymph % (Auto) 26.5 [place] % (Auto) 7.5 Eos % (Auto) 1.9 Baso % (Auto) 0.2 Absolute Neuts (auto) 3.3 Absolute Lymphs (auto) 1.37 Total Counted Not Reportable Blood Type Pending Antibody Screen Pending Crossmatch See Detail Assessment/Plan All Active Problems Sarcoma of right lower extremity (Resolved) Dehiscence of external surgical wound (Resolved) 1. Acute on chronic diastolic CHF-BNP 1251. Chest x-ray without evidence of CHF. Echocardiogram 10/2017 EF 75%, stage 1 diastolic dysfunction, mild tricuspid valve insufficiency, RVSP 56mmhg. IV lasix. Strict I&O. Daily weight. Perry wrap bilateral lower extremities. Continue supplement oxygen to maintain O2 above 90%. 2. Mild hypokalemia-replace per protocol. Trend BMP. 3. NERIS on CKD stage III- Hold IVF given #1. Trend BMP. 4. Chronic COPD/obstructive sleep apnea/pulmonary hypertension with chronic hypoxic respiratory failure-albuterol and DuoNeb aerosols. Continue supplement oxygen to maintain O2 sat above 90%. Patient's oxygen stable on lower requirements then patient wears at baseline. Continue CPAP nightly. 5. History of PE-continue Eliquis. 6. Hypertension-stable, continue home losartan, metoprolol regimen. 7. Hyperlipidemia-continue statin. 8. Tobacco dependence-current pack and half per day smoker. Encouraged tobacco cessation. 9. Bilateral lower extremity lymphedema-Perry wraps bilateral lower extremities. Do note feel patient has cellulitis. Chronic skin changes BLLE. Eucerin and perry wraps. 10. Super morbid obesity-encouraged diet and lifestyle modifications. 11. Depression/anxiety-continue home venlafaxine/buspirone regimen. 12. Hypothyroidism-continue Synthroid regimen. DVT prophylaxis- Zarina This patient was seen by CATHERINE Buck under the supervision of Dr. Valdes.
--- NOTE | 2018-05-14 18:24 | PCM.HP.STD ---
Problem List (1) Post-menopausal bleeding Status: Acute History of Present Illness Date of Admission: 05/14/18 Chief Complaint: Vaginal bleeding The patient is a 63 year old F [postmenopausal for at least 5 years with onset of heavy vaginal bleeding 2 days ago. She has been passing clots and soaking through pads few times every hour. 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) Morbid obesity due to excess calories (Chronic) Allergies Penicillins Allergy (Verified 02/23/17 17:02) Rash Home Medications: Ambulatory Orders Medication Instructions Recorded Amlodipine [Norvasc] 10 mg PO DAILY 02/23/17 Aspirin [Aspirin EC] 325 mg PO DAILY 02/23/17 Atenolol [Tenormin (Beta Christianne)] 100 mg PO DAILY 02/23/17 Dorzolamide 2% [Trusopt] 2 drop EACH EYE TID 02/23/17 Gabapentin [Neurontin] 300 mg PO BIDCM 02/23/17 Glimepiride [Amaryl] 1 mg PO DAILY 02/23/17 Latanoprost 0.005% [Xalatan 1 drop EACH EYE QHS 02/23/17 Opthalmic] Losartan/Hydrochlorothiazide 1 tab PO DAILY 02/23/17 [Hyzaar 100-25 Tablet] Metformin HCl [Glucophage] 1,000 mg PO BIDCM 02/23/17 Naproxen [Naprosyn] 500 mg PO BID PRN PRN 02/23/17 Pravastatin [Pravachol] 40 mg PO QHS 02/23/17 Ropinirole HCl [Requip] 1 mg PO TID 02/23/17 Furosemide [Lasix] 20 mg PO DAILY 02/26/17 Surgical History: - - 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, cholecystectomy, section 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 age 57 Primary C/S age 48 Lives: Alone Smoking Status: Never smoker Tobacco Use: Cigarettes Alcohol: None Drugs: None - *Family History Maternal History Items: - - Denies known cardiac history Paternal History Items: - - Denies known cardiac history Review of Systems Constitutional: Denies: Chills, Fever, Night Sweats, Weakness, Fatigue Eyes: Denies: Blurred vision Cardiovascular: Denies: Chest Pain, Chest Pressure, Chest Tightness, Heaviness, Light Headedness, Palpitations, Syncope Respiratory: Denies: Cough, Shortness of Breath, Wheezing Gastrointestinal: Denies: Abdominal Pain, Constipation, Diarrhea Genitourinary: Denies: Dysuria Gynecological: Reports: - - Heavfy bleeding with clots Psychiatric: Denies: Anxiety Hematologic/ Lymphatic: Denies: Easy Bleeding, Hx of blood clot, Hx of blood transfusion VTE Information - Inpt Only VTE Present on Admission: No VTE Mechan Device Prophylaxis: SCD's VTE Pharm Prophylaxis ordered?: No Patient Problems: Active and Suspected Problems Post-menopausal bleeding (Acute) Subjective: Appears comfortable in no distress Objective: Afeb VSS Hgb 7.5 - Physical Exam General: Alert, Oriented x3, Cooperative, No apparent distress Lungs: Clear to auscultation, Normal air movement Cardiovascular: Regular rate, Regular Rhythm Abdomen: Soft, Non Tender, Non-Distended, Obese Extremities: Edema - bilaterally lower extremity Neurological: Neuro grossly intact Psych/Mental Status: Normal Affect Comment: VAginal bleeding with clots present Vital Signs Temp Pulse Resp BP Pulse Ox 98.7 F 82 17 147/52 H 93 05/14/18 12:34 05/14/18 16:18 05/14/18 16:18 05/14/18 16:18 05/14/18 16:18 Oxygen Delivery Method Room Air Weight: 347 lb 0.121 oz Body Mass Index (BMI) 54.3 Laboratory Tests Past 24 Hrs 05/14/18 05/14/18 13:40 16:50 WBC 5.2 RBC 2.84 L Hgb 7.5 L Hct 24.1 L MCV 84.9 MCH 26.4 L MCHC 31.1 L RDW 14.4 RDW Differential 44.9 H Plt Count 177 MPV 9.6 Immature Gran % (Auto) 0.200 Neut % (Auto) 63.7 Lymph % (Auto) 26.5 [place] % (Auto) 7.5 Eos % (Auto) 1.9 Baso % (Auto) 0.2 Absolute Neuts (auto) 3.3 Absolute Lymphs (auto) 1.37 Total Counted Not Reportable Blood Type O POSITIVE Antibody Screen NEGATIVE Crossmatch See Detail Assessment/Plan All Active Problems Post-menopausal bleeding (Acute) Sarcoma of right lower extremity (Resolved) Dehiscence of external surgical wound (Resolved) Post menopausal bleeding: Given single dose of transamic acid in the ER. Will stabilize lining with IV estrogen x 2 doses then switch to PO progestins on discharge home. Will need endometrial biopsy due to US findings of thickened endometrium. Likely bleeding due to endometrial hyperplasia vs endometrial carcinoma. Anemia: Will transfuse 2 units PRBC and recheck hgb in am.
[2018-05-14] MEDS: Estrogens,Conj. 25 MG Vial IV (21:00)
[2018-05-14] MEDS: Pravastatin 40 MG Tablet PO (21:07)
[2018-05-14] MEDS: Pramipexole Di-HCl 0.5 MG Tablet PO (21:07)
[2018-05-14] MEDS: Latanoprost 0.005% 1 Bottle 1 DRP OPHTHALMIC (21:08)
[2018-05-14] MEDS: Dorzolamide 2% 10ml Bottle 1 DRP EACH EYE (21:08)
[2018-05-15] VITALS (12 sets, daily range): BP systolic 103–147; BP diastolic 39–62; PULSE 61–80; RESP 16–18; TEMP 36.8–37.5; O2SAT 93–99
[2018-05-15] MEDS: Estrogens,Conj. 25 MG Vial IV ×2 (03:02→09:56)
[2018-05-15] MEDS: Pramipexole Di-HCl 0.5 MG Tablet PO ×3 (05:19→21:40)
[2018-05-15] MEDS: Dorzolamide 2% 10ml Bottle 1 DRP EACH EYE ×2 (05:19→14:00)
[2018-05-15 06:11] LABS: Absolute Lymphocyte Count 1.64 X10^3/ul (0.83-4.51); Absolute Neutrophil Count 3.6 X10^3/uL (2.0-7.7); Basophil# 0.02 X10^3/uL; Basophil% 0.3 % (0-1); Eosinophils% 1.7 % (0-5); Hematocrit 22.9 % (37-47); Hemoglobin 7.2 g/dl (12.0-15.0); Lymphocyte # 1.64 X10^3/ul (4.0); Lymphocyte % 27.7 % (19-41); Mean Corp Hgb Conc 31.4 g/gl (32-36); Mean Corpuscular Hgb 27.7 pg (27.0-32.0); Mean Corpuscular Volume 88.1 fL (81-99); Mean Platelet Vol. 10.1 fl (6.2-12.0); Monocyte# 0.54 X10^3/uL; Monocyte% 9.1 % (0-10); Neutrophil # 3.61 X10^3/uL (2.7-7.7); Platelet Count 196 K/mm3 (150-450); RBC Distribution Width CV 14.4 % (11.6-14.6); White Blood Count 5.9 K/mm3 (4.4-11.0)
[2018-05-15 06:16] LABS: POSITIVE COUNT NO; POSITIVE DIFFERENTIAL NO; POSITIVE MORPHOLOGY NO
--- NOTE | 2018-05-15 08:38 | DCINST_ITS ---
- Discharge Diagnoses Current Active Problems: Current Active and Chronic Problems Post-menopausal bleeding (Acute) You will use the following diet at home:: No restrictions Your food should be the consistency of: Regular Discharge Activity: Return to Normal Activity, May Drive, May Shower, May Take a Tub Bath Call your doctor if your incision/area has: Sudden Increased Bleeding Call your doctor if you observe: Fever of 101 or Higher, Inability to urinate, Inability to have a bowel movement, Using more than one pad per hour, Shortness of breath, Dizziness, Fainting spells, Chest pain, Calf discomfort, Uncontrolled pain Allergies/Adverse Reactions: Allergies Penicillins Allergy (Verified 02/23/17 17:02) Rash Medications to take at Discharge Amlodipine [Norvasc] 10 mg PO DAILY 02/23/17 Aspirin [Aspirin EC] 325 mg PO DAILY 02/23/17 Atenolol [Tenormin (Beta Christianne)] 100 mg PO DAILY 02/23/17 Dorzolamide 2% [Trusopt] 2 drop EACH EYE TID 02/23/17 Gabapentin [Neurontin] 300 mg PO BIDCM 02/23/17 Glimepiride [Amaryl] 1 mg PO DAILY 02/23/17 Latanoprost 0.005% [Xalatan Opthalmic] 1 drop EACH EYE QHS 02/23/17 Losartan/Hydrochlorothiazide [Hyzaar 100-25 Tablet] 1 tab PO DAILY 02/23/17 Metformin HCl [Glucophage] 1,000 mg PO BIDCM 02/23/17 Naproxen [Naprosyn] 500 mg PO BID PRN PRN 02/23/17 Pravastatin [Pravachol] 40 mg PO QHS 02/23/17 Ropinirole HCl [Requip] 1 mg PO TID 02/23/17 Furosemide [Lasix] 20 mg PO DAILY 02/26/17 Norethindrone [Aygestin] 15 mg PO DAILY #30 tab 05/15/18 The following prescriptions were given: Norethindrone [Aygestin] 15 mg PO DAILY #30 tab Primary Care Physician: Thanh Dean MD [Primary Care Provider] - Test Results: Test results from this visit will be discussed in further detail at your follow- up appointment, if applicable. Please Follow Up With: Thanh Souza MD - [phone] When: this week Proposed Discharge Date: 05/15/18
--- NOTE | 2018-05-15 08:42 | PN.OBGYN_ITS ---
Patient Problems: Active and Suspected Problems Post-menopausal bleeding (Acute) Subjective: Appears comfortable in bed. Able to get up to bathroom without dizziness or shortness of breath. Continues to have bleeding. Objective: Afeb VSS. Hgb lower after transfusion. - Physical Exam General: Alert, Oriented x3, Cooperative, No apparent distress Lungs: Clear to auscultation, Normal air movement Cardiovascular: Regular rate, Regular Rhythm Abdomen: Soft, Non Tender, Non-Distended, Obese Extremities: Edema - LE Neurological: Neuro grossly intact Psych/Mental Status: Normal Affect Comment: Modest vaginal bleeding Vital Signs Temp Pulse Resp BP Pulse Ox 98.6 F 61 18 121/48 H 93 05/15/18 02:47 05/15/18 02:47 05/15/18 02:47 05/15/18 02:47 05/15/18 02:47 Oxygen Delivery Method Room Air Weight: 347 lb 0.121 oz Body Mass Index (BMI) 54.3 Intake and Output for Last 24 Hours 05/13/18 05/14/18 05/15/18 23:59 23:59 23:59 Intake Total 400 / 400 1408 / 1408 Balance 400 / 400 1408 / 1408 Laboratory Tests Past 24 Hrs 05/14/18 05/14/18 05/14/18 13:40 16:50 16:50 WBC 5.2 RBC 2.84 L Hgb 7.5 L Hct 24.1 L MCV 84.9 MCH 26.4 L MCHC 31.1 L RDW 14.4 RDW Differential 44.9 H Plt Count 177 MPV 9.6 Immature Gran % (Auto) 0.200 Neut % (Auto) 63.7 Lymph % (Auto) 26.5 [place] % (Auto) 7.5 Eos % (Auto) 1.9 Baso % (Auto) 0.2 Absolute Neuts (auto) 3.3 Absolute Lymphs (auto) 1.37 Total Counted Not Reportable Blood Type O POSITIVE Antibody Screen NEGATIVE Crossmatch See Detail See Detail 05/15/18 05:36 WBC 5.9 RBC 2.60 L Hgb 7.2 L Hct 22.9 L MCV 88.1 MCH 27.7 MCHC 31.4 L RDW 14.4 RDW Differential 44.0 H Plt Count 196 MPV 10.1 Immature Gran % (Auto) 0.200 Neut % (Auto) 61.0 Lymph % (Auto) 27.7 [place] % (Auto) 9.1 Eos % (Auto) 1.7 Baso % (Auto) 0.3 Absolute Neuts (auto) 3.6 Absolute Lymphs (auto) 1.64 Total Counted Not Reportable Blood Type Antibody Screen Crossmatch Medical Necessity - Tobacco Use Smoking Status: Never smoker Tobacco Use: Cigarettes Assessment/Plan All Active Problems Post-menopausal bleeding (Acute) Sarcoma of right lower extremity (Resolved) Dehiscence of external surgical wound (Resolved) Now s/p two doses of IV premarin and two units of PRBC. 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 Given lack of increase in hgb level after transfusion will transfuse two additional units. Will give additional dose of premarin. If stabilizes will discharge home on PO progestins with followup instructed this week. Explained likely causes today (hyperplasia vs endometrial carcinoma).
[2018-05-15] MEDS: Glimepiride 1 MG Tablet PO (09:40)
[2018-05-15] MEDS: metFORMIN HCl 1,000 MG Tablet 1000 MG PO ×2 (09:41→17:46)
[2018-05-15] MEDS: Gabapentin 300 MG Capsule PO ×2 (09:41→17:46)
[2018-05-15] MEDS: hydroCHLOROthiazide 25 MG Tablet PO (09:55)
[2018-05-15] MEDS: amLODIPine 10 MG Tablet PO (09:56)
[2018-05-15] MEDS: Losartan Potassium 100 MG Tablet PO (09:56)
[2018-05-15] MEDS: Atenolol 100 MG Tablet PO (09:57)
[2018-05-15] MEDS: Furosemide 20 MG Tablet PO (10:08)
[2018-05-15 10:16] LABS: Bedside Glucose 155 mg/dL (70-110)
[2018-05-15] MEDS: 0.9% NaCl Peripheral Flush Adult/Peds IV ×2 (10:17→17:45)
[2018-05-15 19:18] LABS: Hematocrit 24.8 % (37-47); Hemoglobin 8.1 g/dl (12.0-15.0); Mean Corp Hgb Conc 32.7 g/gl (32-36); Mean Corpuscular Hgb 27.6 pg (27.0-32.0); Mean Corpuscular Volume 84.6 fL (81-99); Mean Platelet Vol. 9.5 fl (6.2-12.0); Platelet Count 200 K/mm3 (150-450); RBC Distribution Width CV 15.1 % (11.6-14.6); RBC Distribution Width SD 46.8 fl (35.1-43.9); Red Blood Count 2.93 M/mm3 (4.2-5.4); Scan Indicated on CBC? Y/N NO; White Blood Count 7.6 K/mm3 (4.4-11.0)
[2018-05-15] MEDS: Pravastatin 40 MG Tablet PO (21:41)
[2018-05-15] MEDS: Latanoprost 0.005% 1 Bottle 1 DRP OPHTHALMIC (21:42)
[2018-05-15] MEDS: Loperamide 2 MG Capsule PO (22:51)
[2018-05-16 02:43] VITALS: BP 132/55; PULSE 71; RESP 16; TEMP 37.2; O2SAT 96
[2018-05-16] MEDS: Dorzolamide 2% 10ml Bottle 1 DRP EACH EYE (06:23)
[2018-05-16] MEDS: Pramipexole Di-HCl 0.5 MG Tablet PO (06:23)
[2018-05-16 07:01] LABS: Bedside Glucose 128 mg/dL (70-110)
[2018-05-16 07:35] LABS: Hematocrit 23.9 % (37-47); Hemoglobin 7.5 g/dl (12.0-15.0); Mean Corp Hgb Conc 31.4 g/gl (32-36); Mean Corpuscular Hgb 27.7 pg (27.0-32.0); Mean Corpuscular Volume 88.2 fL (81-99); Mean Platelet Vol. 9.9 fl (6.2-12.0); Platelet Count 203 K/mm3 (150-450); RBC Distribution Width CV 15.2 % (11.6-14.6); RBC Distribution Width SD 46.4 fl (35.1-43.9); Red Blood Count 2.71 M/mm3 (4.2-5.4); White Blood Count 7.5 K/mm3 (4.4-11.0)
[2018-05-16 07:36] LABS: Scan Indicated on CBC? Y/N NO
[2018-05-16] MEDS: Atenolol 100 MG Tablet PO (08:51)
[2018-05-16] MEDS: Furosemide 20 MG Tablet PO (08:51)
[2018-05-16] MEDS: amLODIPine 10 MG Tablet PO (08:51)
[2018-05-16] MEDS: hydroCHLOROthiazide 25 MG Tablet PO (08:52)
[2018-05-16] MEDS: metFORMIN HCl 1,000 MG Tablet 1000 MG PO (08:52)
[2018-05-16] MEDS: Glimepiride 1 MG Tablet PO (08:52)
[2018-05-16] MEDS: Losartan Potassium 100 MG Tablet PO (08:52)
[2018-05-16] MEDS: Gabapentin 300 MG Capsule PO (08:52)
[2018-05-16 08:54] VITALS: BP 116/50; PULSE 81; RESP 18; TEMP 36.7; O2SAT 95
--- NOTE | 2018-05-16 10:30 | CASEMGMT ---
RN SUZETTE Face to Face with patient for initial transition planning/care coordination assessment. RN CM introduced self and role at [facility]. Patient lying in bed, alert and oriented, friend at bedside. Patient willing to participate in assessment and is able to answer all questions appropriately. Care providers, pharmacy, and demographics verified. Patient wishes to discharge home, denies need for home health at this time. Patient states she has no further needs or concerns at this time. CM to follow for discharge planning needs that may arise. PCP: Dianne Specialists: Cory oncologist Preferred Pharmacy: [facility] Insurance: MMO Prescription Benefit: MMO Living Will/HPOA: None LNOK: Daughter Living Arrangements: Patient lives in 1 story home with 2 steps to enter home. Patient has teenage daughter that lives with her. Patient independent at home. Transportation: Self/friend DME/HHC: Patient has cane denies need for further DME Disposition Plan: Patient to discharge home with family support and follow-up plans in place. Ade RANDOLPHN, RN, CM
--- NOTE | 2018-05-16 19:48 | PCM.PROGNOTE ---
Subjective: HD # 3 Postmenopausal bleeding Acute blood loss anemia requiring transfusion Doing better. States feeling a little tired and wondering if due to her recent very heavy bleeding. Sates no longer passing clots and has been wearing the same peripad from 5 am to 9 am without changing. She has received 4 units pRBCs since her initial presentation to the [facility] ED. Denies pain. Tolerating diet well. Final CBC last pm was resulted after pharmacies closed so kept overnight for continued observation. RX for Aygestin to be picked up after dischg. Relates she was told at time of a C/S delivery that she had a large fibroid at the lower uterus which did not allow vaginal delivery. She is wondering if her bleeding was due to fibroid. - Physical Exam General: Alert, Oriented x3, Cooperative, No apparent distress HEENT: Atraumatic, EOMI Neck: Supple Abdomen: Obese Skin: - - Peripad with light to mod blood, no clots. Blood dk red. Neurological: Cranial nerves II-XII grossly intact Psych/Mental Status: Normal Affect Vital Signs Temp Pulse Resp BP Pulse Ox 98.0 F 81 18 116/50 L 95 05/16/18 08:54 05/16/18 08:54 05/16/18 08:54 05/16/18 08:54 05/16/18 08:54 Oxygen Delivery Method Room Air Weight: 157.4 kg Body Mass Index (BMI) 54.3 Intake and Output for Last 24 Hours 05/14/18 05/15/18 05/16/18 23:59 23:59 23:59 Intake Total 400 / 400 3983 / 3983 450 / 450 Balance 400 / 400 3983 / 3983 450 / 450 Laboratory Tests Past 24 Hrs 05/16/18 07:08 WBC 7.5 RBC 2.71 L Hgb 7.5 L Hct 23.9 L MCV 88.2 MCH 27.7 MCHC 31.4 L RDW 15.2 H RDW Differential 46.4 H Plt Count 203 MPV 9.9 POC Glucose 05/16/18 06:27 POC Glucose 128 H SONO: Midline anteverted uterus measures 12.0 x 5.7 x 5.9 cm. ES 18.4 mm Ovaries are not visible. The examination is limited secondary to body habitus constraints and limited mobility of the patient. Medical Necessity - Tobacco Use Smoking Status: Never smoker Tobacco Use: Cigarettes Assessment/Plan All Active Problems Post-menopausal bleeding (Acute) Sarcoma of right lower extremity (Resolved) Dehiscence of external surgical wound (Resolved) HD#3 Postmenpausal bleeding. Acute blod loss anemic requiring transfusion Stable at present. 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 Advised that with the four units of blood given, hgb only at approx the initial Hgb at presentation to the ED. S/P Tranexamic acid, Two doses of estrogen IV. 4 units pRBCs. Plan as outlined: -- Aygestin 15 mg po daily for 10 d with 1 RF sent to pharmacy -- f/u with Dr Souza in office for planned EMB. Advised to take Tylenol, Ibuprofen, Aleve or similar prior to the EMB which may cause cramping. -- call to ofc prior to that appt if heavy VB resumes.
--- NOTE | 2018-05-16 19:52 | PN_ITS ---
Subjective: HD # 3 Postmenopausal bleeding Acute blood loss anemia requiring transfusion Doing better. States feeling a little tired and wondering if due to her recent very heavy bleeding. Sates no longer passing clots and has been wearing the same peripad from 5 am to 9 am without changing. She has received 4 units pRBCs since her initial presentation to the [facility] ED. Denies pain. Tolerating diet well. Final CBC last pm was resulted after pharmacies closed so kept overnight for continued observation. RX for Aygestin to be picked up after dischg. Relates she was told at time of a C/S delivery that she had a large fibroid at the lower uterus which did not allow vaginal delivery. She is wondering if her bleeding was due to fibroid. - Physical Exam General: Alert, Oriented x3, Cooperative, No apparent distress HEENT: Atraumatic, EOMI Neck: Supple Abdomen: Obese Skin: - - Peripad with light to mod blood, no clots. Blood dk red. Neurological: Cranial nerves II-XII grossly intact Psych/Mental Status: Normal Affect Vital Signs Temp Pulse Resp BP Pulse Ox 98.0 F 81 18 116/50 L 95 05/16/18 08:54 05/16/18 08:54 05/16/18 08:54 05/16/18 08:54 05/16/18 08:54 Oxygen Delivery Method Room Air Weight: 157.4 kg Body Mass Index (BMI) 54.3 Intake and Output for Last 24 Hours 05/14/18 05/15/18 05/16/18 23:59 23:59 23:59 Intake Total 400 / 400 3983 / 3983 450 / 450 Balance 400 / 400 3983 / 3983 450 / 450 Laboratory Tests Past 24 Hrs 05/16/18 07:08 WBC 7.5 RBC 2.71 L Hgb 7.5 L Hct 23.9 L MCV 88.2 MCH 27.7 MCHC 31.4 L RDW 15.2 H RDW Differential 46.4 H Plt Count 203 MPV 9.9 POC Glucose 05/16/18 06:27 POC Glucose 128 H SONO: Midline anteverted uterus measures 12.0 x 5.7 x 5.9 cm. ES 18.4 mm Ovaries are not visible. The examination is limited secondary to body habitus constraints and limited mobility of the patient. Medical Necessity - Tobacco Use Smoking Status: Never smoker Tobacco Use: Cigarettes Assessment/Plan All Active Problems Post-menopausal bleeding (Acute) Sarcoma of right lower extremity (Resolved) Dehiscence of external surgical wound (Resolved) HD#3 Postmenpausal bleeding. Acute blod loss anemic requiring transfusion Stable at present. 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 Advised that with the four units of blood given, hgb only at approx the initial Hgb at presentation to the ED. S/P Tranexamic acid, Two doses of estrogen IV. 4 units pRBCs. Plan as outlined: -- Aygestin 15 mg po daily for 10 d with 1 RF sent to pharmacy -- f/u with Dr Souza in office for planned EMB. Advised to take Tylenol, Ibuprofen, Aleve or similar prior to the EMB which may cause cramping. -- call to ofc prior to that appt if heavy VB resumes.
--- NOTE | 2018-05-16 20:00 | PCM.DC.SUM ---
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 with menorrhagia. passing clots and inc bleeding in last two days prior to admission. She is postmenopausal. Admitted for Observation, and transfusion. Given Tranexamic acid, two doses of IV estrogen., and 4 units pRBCs. Hemoglobin initially 7.5 g/dl. after four units, remains stable at 7.5 g/dl. Bleeding much improved, and no longer bleeding heavily or passing clots. Discharged home in stable condition. to follow up in office for EMB for further evaluation of endometrial stripe. - Physical Exam General: Alert, Oriented x3, Cooperative, No apparent distress HEENT: Atraumatic, EOMI Skin: - Vital Signs Temp Pulse Resp BP Pulse Ox 98.0 F 81 18 116/50 L 95 05/16/18 08:54 05/16/18 08:54 05/16/18 08:54 05/16/18 08:54 05/16/18 08:54 Oxygen Delivery Method Room Air Weight: 157.4 kg Body Mass Index (BMI) 54.3 Intake and Output for Last 24 Hours 05/14/18 05/15/18 05/16/18 23:59 23:59 23:59 Intake Total 400 / 400 3983 / 3983 450 / 450 Balance 400 / 400 3983 / 3983 450 / 450 Laboratory Tests Past 24 Hrs 05/16/18 07:08 WBC 7.5 RBC 2.71 L Hgb 7.5 L Hct 23.9 L MCV 88.2 MCH 27.7 MCHC 31.4 L RDW 15.2 H RDW Differential 46.4 H Plt Count 203 MPV 9.9 POC Glucose 05/16/18 06:27 POC Glucose 128 H Discharge Activity: Return to Normal Activity, May Drive, May Shower, May Take a Tub Bath Call your doctor if your incision/area has: Sudden Increased Bleeding Call your doctor if you observe: Fever of 101 or Higher, Inability to urinate, Inability to have a bowel movement, Using more than one pad per hour, Shortness of breath, Dizziness, Fainting spells, Chest pain, Calf discomfort, Uncontrolled pain Home Medications: Medications to take at Discharge Amlodipine [Norvasc] 10 mg PO DAILY 02/23/17 Aspirin [Aspirin EC] 325 mg PO DAILY 02/23/17 Atenolol [Tenormin (Beta Christianne)] 100 mg PO DAILY 02/23/17 Dorzolamide 2% [Trusopt] 2 drop EACH EYE TID 02/23/17 Gabapentin [Neurontin] 300 mg PO BIDCM 02/23/17 Glimepiride [Amaryl] 1 mg PO DAILY 02/23/17 Latanoprost 0.005% [Xalatan Opthalmic] 1 drop EACH EYE QHS 02/23/17 Losartan/Hydrochlorothiazide [Hyzaar 100-25 Tablet] 1 tab PO DAILY 02/23/17 Metformin HCl [Glucophage] 1,000 mg PO BIDCM 02/23/17 Naproxen [Naprosyn] 500 mg PO BID PRN PRN 02/23/17 Pravastatin [Pravachol] 40 mg PO QHS 02/23/17 Ropinirole HCl [Requip] 1 mg PO TID 02/23/17 Furosemide [Lasix] 20 mg PO DAILY 02/26/17 Loperamide [Imodium] 2 mg PO Q2H PRN PRN 05/15/18 Norethindrone [Aygestin] 15 mg PO DAILY #30 tab 05/15/18 Following Prescrptions Were Given to Patient: Norethindrone [Aygestin] 15 mg PO DAILY #30 tab Primary Care Physician: Thanh Dean MD [Primary Care Provider] - Please Follow Up With: Thanh Souza MD - [phone] When: this week Medical Necessity - Tobacco Use Smoking Status: Never smoker Tobacco Use: Cigarettes Meaningful Use Info Meaningful Use Diagnoses (Choose all that apply): None applicable
--- NOTE | 2018-05-18 10:35 | CASEMGMT ---
YUAN BRADFORD Discharge Follow-up Phone Call: GANESH: Santosh Strata: 3 Call Date: 05/18/18 Discharge Date: 05/16/18 Time of Call: 1035 Duration: 0 ? Admitting Diagnosis: Post menopausal bleeding This RN SUZETTE attempted to contact pt via telephone in regard to discharge f/u. Voicemail received and message left requesting a return call if pt has questions or concerns. Dior Zaragoza RN
== END 2018-05-16 11:00 | disposition home or self-care (01) | DRG 812 ==
LOC: ED 13:19 → MS3 17:31
PROVIDERS: Obstetrics & Gynecology; Admitting Provider Obstetrics & Gynecology; Emergency Provider Emergency Medicine; Visit Provider Obstetrics & Gynecology
DX: D62 Acute posthemorrhagic anemia (principal); Z68.43 Body mass index [BMI] 50.0-59.9, adult; E66.01 Morbid (severe) obesity due to excess calories; E11.49 Type 2 diabetes mellitus with other diabetic neurological complication; N95.0 Postmenopausal bleeding; I89.0 Lymphedema, not elsewhere classified; Z79.84 Long term (current) use of oral hypoglycemic drugs; Z23 Encounter for immunization
CPT/HCPCS: 36415; 76830; 82962; 85025; 85027; 86850; 86900; 86920; 86922; 99285; J7040; P9016; 90686; A4216; J1410

== ENCOUNTER 2018-06-03 05:24 | Day surgery (SDC) | payer OTHER, SELFPAY ==
[2018-05-14 17:53] VITALS: BMI 54.3
[2018-05-31 14:27] VITALS: BP 130/55; PULSE 71; RESP 16; TEMP 37.1; O2SAT 94; BMI 54.3
--- NOTE | 2018-05-31 14:46 | SDCEKG_ITS ---
Test Reason : Blood Pressure : / mmHG Vent. Rate : 074 BPM Atrial Rate : 074 BPM P-R Int : 164 ms QRS Dur : 144 ms QT Int : 448 ms P-R-T Axes : 046 -38 042 degrees QTc Int : 497 ms Normal sinus rhythm Left axis deviation Right bundle branch block Left ventricular hypertrophy with QRS widening Abnormal ECG Confirmed by JEAN REDDING, DIANA ([id number]), international editorial producer ROBBIN PRESCOTT ([id number]) on 06/03/2018 10:50:19 AM Referred By: Thanh Souza Confirmed By:DIANA PENA MD
--- NOTE | 2018-05-31 15:05 | RAD_ITS ---
STUDY: X-RAY CHEST REASON FOR EXAM: Female, 63 years old. Preadmission testing. TECHNIQUE: PA and lateral views of the chest. COMPARISON: None. FINDINGS: The lungs are clear and expanded. Scattered calcified granulomas. No acute infiltrate is seen. There is no demonstrated pleural abnormality. Normal size heart. Normal mediastinum and jennifer. Normal visualized pulmonary arteries. There is atherosclerotic calcification of the aortic arch with tortuosity. There are diffuse degenerative changes of the visualized thoracic spine. Normal visualized ribs, clavicles, and shoulders. There is no demonstrated abnormality of the visualized soft tissue structures of the upper abdomen. RAD/Chest PA and Lateral IMPRESSION: No acute abnormality is seen. Electronically Signed: Candelario Santiago MD at 15:26 EST Tel [phone], Service support ,
[2018-05-31 15:26] LABS: International Normalized Ratio 1.1; Prothrombin Time (Protime)PT. 14.4 SECONDS (11.7-14.9)
[2018-05-31 15:27] LABS: Partial Thromboplast Time 27.3 Seconds (24.1-36.2)
[2018-05-31 15:30] LABS: Hematocrit 28.1 % (37-47); Hemoglobin 8.3 g/dl (12.0-15.0); Mean Corp Hgb Conc 29.5 g/gl (32-36); Mean Corpuscular Hgb 25.3 pg (27.0-32.0); Mean Corpuscular Volume 85.7 fL (81-99); Mean Platelet Vol. 9.6 fl (6.2-12.0); Platelet Count 321 K/mm3 (150-450); RBC Distribution Width CV 14.9 % (11.6-14.6); RBC Distribution Width SD 45.3 fl (35.1-43.9); Red Blood Count 3.28 M/mm3 (4.2-5.4); White Blood Count 6.3 K/mm3 (4.4-11.0)
[2018-05-31 15:32] LABS: Scan Indicated on CBC? Y/N NO
[2018-05-31 15:52] LABS: ALB/GLOB Ratio 0.8 RATIO (0.9-2.4); AST(SGOT) 18 U/L (15-37); Alanine Aminotransfer ALT/SGPT 27 U/L (13-56); Albumin, Serum 3.7 g/dL (3.2-5.0); Alkaline Phosphatase 76 U/L (45-117); Anion Gap 11 (5-15); BUN 14 mg/dL (7-18); BUN/Creat Ratio 17.4 RATIO (10-20); Calcium,Total 9.5 mg/dL (8.5-10.1); Chloride 104 mmol/L (98-107); EST Glomerular Filtration Rate 76 mL/min (>60); Est Glom Filt Rate - Afr Amer 92 mL/min (>60); Estimated Creatinine Clearance 69.09 ml/min; Globulin 4.6 g/dL (2.2-4.2); Glucose 102 mg/dL (74-106); Potassium 3.5 mmol/L (3.5-5.1); Protein, Total 8.3 g/dL (6.4-8.2); Sodium Level 140 mmol/L (136-145)
[2018-06-03 05:52] VITALS: BP 131/52; PULSE 77; RESP 18; TEMP 37.7; O2SAT 94; BMI 54.3
[2018-06-03 06:11] LABS: Bedside Glucose 151 mg/dL (70-110)
--- NOTE | 2018-06-03 07:30 | EMB_PTH ---
PATIENT: MARY URIAS LOC: [facility] [place] U#:[id number] AGE/SX: 63/F ROOM: RE06/03/[address]: Dr. Thanh Souza MD : [id number] BED: DIS: 06/03/2018 SPEC #: [id number] RECD: 06/03/18 09:28 STATUS: LEANDRO REX #: [id number] RAKESH: 06/03/18 07:[address]: hTanh Souza DEPT: SURGICAL PATHOLOGY RECD BY: Daniel Ash ENTERED: 06/03/18 10:45 SP TYPE: ENDOM BX/C ABBEY DR: Dr. Thanh Dean MD Tissues: A - Endometrium, NOS B - Exocervix Procedures: Surgery Specimen Level IV HEADER OPERATION: Hysteroscopy, dilation and curettage, endometrial and cervical PRE-OP DIAGNOSIS: Acute posthemorrhagic anemia, postmenopausal bleeding, thickened lining on US TISSUE SUBMITTED: A - Endometrial curettings, endometrial polyps, B - Exocervical curettings MICROSCOPIC DIAGNOSIS A. Endometrial curettings and endometrial polyps: Fragments of benign endometrial polyps with extensive cystic changes and focal simple cystic hyperplasia without atypia. Fragments of endometrial tissue with focal simple cystic hyperplasia, mucinous metaplasia, and glandular and stromal breakdown. B. Endocervical polyps: Fragments of mixed benign ecto- and endocervical polyp. Fragments of benign endometrial tissue. SJ:nabeel 06/06/18 COMMENT Case has been reviewed in consultation with Dr. aFulkner who concurs with the above diagnosis. IDC:AM MICROSCOPIC DESCRIPTION Slides are reviewed. GROSS DESCRIPTION A - Received in fixative is one container labeled with the patient's name and designated endometrial curettings and endometrial polyps. The specimen consists of multiple fragments of hemorrhagic soft tissue that in aggregate measure 5 x 3 x 0.6 cm. Also present in the container are two polypoid pieces of collins soft tissue measuring 2.5 x 2 x 0.5 cm and 2.5 x 1 x 0.5 cm. The polypoid pieces are bisected. The entire specimen is submitted in eight cassettes. Cassettes 1-3 contain the polypoid pieces. B - Received in fixative is one container labeled with the patient's name and designated endocervical polyps. The specimen consists of multiple pieces of collins-pink polypoid mucoid tissue that in aggregate measure 5 x 3 x 0.3 cm. The entire specimen is submitted in two cassettes. / SJ:rg 06/03/18 TC:5 CPT: 07841 x2
--- NOTE | 2018-06-03 08:14 | DCINST_ITS ---
You will use the following diet at home:: No restrictions, Calorie/Carbohydrate Controlled (specify 1200, 1400, etc) Your food should be the consistency of: Regular Discharge Activity: Return to Normal Activity, May Drive, May Shower May resume sexual activity in: 4-6 weeks Call your doctor if your incision/area has: Sudden Increased Bleeding, Increased Pain/ Swelling Call your doctor if you observe: Fever of 101 or Higher, Inability to urinate, Inability to have a bowel movement, Using more than one pad per hour, Shortness of breath, Chest pain, Calf discomfort, Uncontrolled pain Cleanse incision/area with: Soap & Water Allergies/Adverse Reactions: Allergies Penicillins Allergy (Verified 05/31/18 14:15) Rash suture Allergy (Verified 05/31/18 14:15) NONHEALING WOUND Medications to take at Discharge Amlodipine [Norvasc] 10 mg PO DAILY 02/23/17 Atenolol [Tenormin (beta hernan)] 100 mg PO DAILY 02/23/17 Dorzolamide 2% [Trusopt] 2 drop EACH EYE TID 02/23/17 Gabapentin [Neurontin] 300 mg PO BIDCM 02/23/17 Glimepiride [Amaryl] 1 mg PO DAILY 02/23/17 Latanoprost 0.005% [Xalatan Opthalmic] 1 drop EACH EYE QHS 02/23/17 Losartan/Hydrochlorothiazide [Hyzaar 100-25 Tablet] 1 tab PO DAILY 02/23/17 Metformin HCl [Glucophage] 1,000 mg PO BIDCM 02/23/17 Pravastatin [Pravachol] 40 mg PO QHS 02/23/17 Ropinirole HCl [Requip] 1 mg PO TID 02/23/17 Furosemide [Lasix] 20 mg PO DAILY 02/26/17 Loperamide [Imodium] 2 mg PO Q2H PRN PRN 05/15/18 Norethindrone [Aygestin] 15 mg PO DAILY #30 tab 06/03/18 The following prescriptions were given: Norethindrone [Aygestin] 15 mg PO DAILY #30 tab Primary Care Physician: Thanh Dean MD [Primary Care Provider] - Test Results: Test results from this visit will be discussed in further detail at your follow- up appointment, if applicable. Please Follow Up With: Thanh Souza MD When: two weeks Proposed Discharge Date: 06/03/18
--- NOTE | 2018-06-03 08:15 | PCM.OPRPT ---
Problem List (1) Post-menopausal bleeding Status: Chronic Report of Operation Date of Procedure: 06/03/18 Pre-Operative Diagnosis: Post Menopausal Bleeding Post-Operative Diagnosis: Same and Endometrial Polyp and Cervical Polyp Surgery/Procedure Performed:: Hysteroscopy, Dilation and Curettage, Exocervical Polypectomy, Endometrial Polypectomy Description of Surgical Findings:: 2 cm exocervical polyp, 2cm endometrial polyp, endometrial lining otherwise appeared thin engineer intern: None Type of Anesthesia:: MAC Anesthesiologist: Nish Masters Special Medications: none Specimen's removed: endometrial curettings, endometrial polyp, ectocervical polyp Drains: none Estimated Blood Loss (mL): 10cc Fluids Replaced: 700cc LR Description of Procedure: Nereida was taken to the OR with IV running. She was given clindamycin and gentamicin intravenously prior to the procedure for surgical prophylaxis. SHe had SCDs in placed and operational from the preoperative area through surgery and into recovery. MAC anesthesia was then introduced without complication. She was then prepped and draped in the dorsal lithotomy position. A red rubber catheter was then used to drain the bladder. A weighted speculum was then placed in the posterior vagina, the cervix identified and the anterior lip grasped with a single toothed tenaculum. The uterus was then sounded to 8cm. The cervix was hen serially dilated to 27 Malag[place]. A hysteroscope was then placed into the endometrial cavity and findings were as above. A polyp forceps was used to grasp and remove the endometrial polyp. A sharp curettage was then performed. The hysteroscope was reintroduced and confirmed removal of the polyp. The ectocervical polyp was then removed with a ring forceps and the base cauterized with the Bovie cautery. All instruments were then removed from the vagina and cervix with good hemostasis assured. Sponge and instrument counts were correct. She was reversed from anesthesia and taken to the recovery room in stable condition. Grafts/Implants Used: none - Complications none - Admit VTE Documentation VTE Present on Admission: No VTE Mechan Device Prophylaxis: SCD's VTE Pharm Prophylaxis ordered?: No
[2018-06-03 08:21] VITALS: BP 125/60; BP 131/52; PULSE 78; RESP 16; TEMP 37.2; O2SAT 97
[2018-06-03 08:30] VITALS: BP 131/52; PULSE 65; RESP 16; O2SAT 93
[2018-06-03 08:38] VITALS: BP 113/46; BP 131/52; PULSE 67; RESP 16; O2SAT 93
[2018-06-03 08:40] VITALS: BP 122/58; BP 131/52; PULSE 72; RESP 16; TEMP 37; O2SAT 94
[2018-06-03 10:10] VITALS: BP 131/52
--- OUTSIDE RECORDS SUMMARY | 2018-07-19 17:22 | XMS RPT_ITS ---
:1955 Author Organization [facility] Care Team Providers Name Role Phone KIM BUTTS (OD) Attending Unavailable KIM BUTTS (OD) Referring Unavailable KIM BUTTS (OD) Attending Unavailable KIM BUTTS (OD) Referring Unavailable KIM BUTTS (OD) Attending Unavailable KIM BUTTS (OD) Referring Unavailable Erwin Bhat Admitting Unavailable Erwin Bhat Attending Unavailable Thanh Dean Primary Care Unavailable ALANA GONSALES Attending Unavailable Gallo Pena Attending Unavailable Thanh Souza Referring Unavailable Linh Lara Attending Unavailable Thanh Dean Primary Care Unavailable Linh Lara Attending Unavailable Thanh Dean Primary Care Unavailable EZIO MARES Attending Unavailable EZIO MARES Referring Unavailable Thanh Dean Primary Care Unavailable Linh Lara Attending Unavailable Thanh Dean Primary Care Unavailable Thanh Dean Primary Care Unavailable Thanh Souza Admitting Unavailable Thanh Souza Attending Unavailable Seals, Thanh Attending Unavailable Seals, Thanh Referring Unavailable Thanh Dean Primary Care Unavailable PROBLEMS PROBLEMS DATE TYPE CONDITION / CODE ATTENDING STATUS SOURCE 06/15/2018 Unknown R94.31 - Abnormal [place], Active Vikram electrocardiogram [facility] [ECG] [EKG] / Hospital R94.31(ICD-10) Repository 06/15/2018 Unknown 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[place], Active Vikram infarction / [facility] I25.2(ICD-10) Hospital Repository 06/15/2018 Unknown I10 - Essential [place], Active Vikram (primary) hypertension [facility] / I10(ICD-10) Hospital Repository 06/15/2018 Unknown 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[place], 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 / I45.10(ICD-10) Hospital Repository 05/16/2018 Unknown D62 - Acute Thanh Souza Active [place]al posthemorrhagic anemia [facility] / D62(ICD-10) Hospital Repository 05/16/2018 Unknown N95.0 - Postmenopausal SealThanh baltazar Active Vikram bleeding / [facility] N95.0(ICD-10) Hospital Repository 05/16/2018 Unknown D64.9 - Anemia, SealThanh baltazar Active [facility] unspecified / [facility] D64.9(ICD-10) Hospital Repository PROCEDURES PROCEDURES No Procedure Records FoundRESULTS RESULTS OPERATIVE REPORT Observed: 06/03/2018 Status: F Source: [place] 12:32 PM [facility] REPOSITORY [facility] Medical Records Department [address] [place] [address] Operative Report 06/03/18 0815 MR#: [id number] Acct: [id number] Name: MARY HAYS Rep #: [id number] : 1955 63 From: Thanh Souza MD PCP: Thanh Dean MD Status: [facility] Y Location[place] [facility] [place] Problem List (1) Post-menopausal bleeding Status: Chronic Report of Operation Date of Procedure: 06/03/18 Pre-Operative Diagnosis: Post Menopausal Bleeding Post-Operative Diagnosis: Same and Endometrial Polyp and Cervical Polyp Surgery/Procedure Performed:: Hysteroscopy, Dilation and Curettage, Exocervical Polypectomy, Endometrial Polypectomy Description of Surgical Findings:: 2 cm exocervical polyp, 2cm endometrial polyp, endometrial lining otherwise appeared thin composing room machinist: None Type of Anesthesia:: MAC Anesthesiologist: Nish Masters Special Medications: none Specimen's removed: endometrial curettings, endometrial polyp, ectocervical polyp Drains: none Estimated Blood Loss (mL): 10cc Fluids Replaced: 700cc LR Description of Procedure: Mary was taken to the OR with IV running. She was given clindamycin and gentamicin intravenously prior to the procedure for surgical prophylaxis. SHe had SCDs in placed and operational from the preoperative area through surgery and into recovery. MAC anesthesia was then introduced without complication. She was then prepped and draped in the dorsal lithotomy position. A red rubber catheter was then used to drain the bladder. A weighted speculum was then placed in the posterior vagina, the cervix identified and the anterior lip grasped with a single toothed tenaculum. The uterus was then sounded to 8cm. The cervix was hen serially dilated to 27 Greenlandic. A hysteroscope was then placed into the endometrial cavity and findings were as above. A polyp forceps was used to grasp and remove the endometrial polyp. A sharp curettage was then performed. The hysteroscope was reintroduced and confirmed removal of the polyp. The ectocervical polyp was then removed with a ring forceps and the base cauterized with the Bovie cautery. All instruments were then removed from the vagina and cervix with good hemostasis assured. Sponge and instrument counts were correct. She was reversed from anesthesia and taken to the recovery room in stable condition. Grafts/Implants Used: none - Complications none - Admit VTE Documentation VTE Present on Admission: No VTE Mechan Device Prophylaxis: SCD's VTE Pharm Prophylaxis ordered?: No 06/03/18 1232 <Electronically signed by Thanh Souza MD> Date Thanh Souza MD CC: Thanh Dean MD; Thanh Souza MD Signed 12 LEAD ELECTROCARDIOGRAM Observed: 06/03/2018 Status: F Source: [place] 10:[address] [facility] REPOSITORY [facility] Cardiovascular Services [address] [place] [address] EKG - [facility] 05/31/18 1436 MR#: [id number] Acct: [id number] Name: MARY HAYS Rep #: [id number] : 1955 63 From: Gallo Pena MD Attending Dr: Thanh Souza MD Status: [facility] Ordering Dr: Thanh Souza MD Date: 05/31/18 Location: [facility] [place] Sex: F C Admitted: Test Reason : Blood Pressure : / mmHG Vent. Rate : 074 BPM Atrial Rate : 074 BPM P-R Int : 164 ms QRS Dur : 144 ms QT Int : 448 ms P-R-T Axes : 046 -38 042 degrees QTc Int : 497 ms Normal sinus rhythm Left axis deviation Right bundle branch block Left ventricular hypertrophy with QRS widening Abnormal ECG Confirmed by JEAN REDDING, GALLO ([id number]), state editor ROBBIN PRESCOTT ([id number]) on 06/03/2018 10:50:19 AM Referred By: Thanh Souza Confirmed By:GALLO PENA MD 06/03/18 1050 Date Gallo Pena MD CC: Thanh Dean MD; Thanh Souza MD Date Dictated: 05/31/181435 Date Transcribed: 05/31/181435 Laundry Press Operator: Signed DISCHARGE INSTRUCTION Observed: 06/03/2018 Status: F Source: [place] 8:[address] [facility] REPOSITORY [facility] Medical Records Department [address] [place] [address] Instructions for Home/Discharge Instructions 06/03/18812 MR#: [id number] Acct: [id number] Name: MARY HAYS Rep #: [id number] : 1955 63 From: Thanh Souza MD PCP: Thanh Dean MD Status: [facility] You will use the following diet at home:: No restrictions, Calorie/Carbohydrate Controlled (specify 1200, 1400, etc) Your food should be the consistency of: Regular Discharge Activity: Return to Normal Activity, May Drive, May Shower May resume sexual activity in: 4-6 weeks Call your doctor if your incision/area has: Sudden Increased Bleeding, Increased Pain/ Swelling Call your doctor if you observe: Fever of 101 or Higher, Inability to urinate, Inability to have a bowel movement, Using more than one pad per hour, Shortness of breath, Chest pain, Calf discomfort, Uncontrolled pain Cleanse incision/area with: Soap AND Water Allergies/Adverse Reactions: Allergies Penicillins Allergy (Verified 05/31/18 14:15) Rash suture Allergy (Verified 05/31/18 14:15) NONHEALING WOUND Medications to take at Discharge Amlodipine [Norvasc] 10 mg PO DAILY 02/23/17 Atenolol [Tenormin (beta christianne)] 100 mg PO DAILY 02/23/17 Dorzolamide 2% [Trusopt] 2 drop EACH EYE TID 02/23/17 Gabapentin [Neurontin] 300 mg PO BIDCM 02/23/17 Glimepiride [Amaryl] 1 mg PO DAILY 02/23/17 Latanoprost 0.005% [Xalatan Opthalmic] 1 drop EACH EYE QHS 02/23/17 Losartan/Hydrochlorothiazide [Hyzaar 100-25 Tablet] 1 tab PO DAILY 02/23/17 Metformin HCl [Glucophage] 1,000 mg PO BIDCM 02/23/17 Pravastatin [Pravachol] 40 mg PO QHS 02/23/17 Ropinirole HCl [Requip] 1 mg PO TID 02/23/17 Furosemide [Lasix] 20 mg PO DAILY 02/26/17 Loperamide [Imodium] 2 mg PO Q2H PRN PRN 05/15/18 Norethindrone [Aygestin] 15 mg PO DAILY #30 tab 06/03/18 The following prescriptions were given: Norethindrone [Aygestin] 15 mg PO DAILY #30 tab Primary Care Physician: Thanh Dean MD [Primary Care Provider] - Test Results: Test results from this visit will be discussed in further detail at your follow-up appointment, if applicable. Please Follow Up With: Thanh Souza MD When: two weeks Proposed Discharge Date: 06/03/18 06/03/18813 <Electronically signed by Thanh oSuza MD> Date Thanh Souza MD CC: Thanh Dean MD ENDOMETRIAL BX/CURETTINGS Observed: 06/03/2018 Status: F Source: [place] 7:[address] [facility] REPOSITORY Patient: MARY HAYS : 1955 (63/F) Acct Num: [id number] Phys: Harley REDDING,Thanh Unit Num: [id number] Loc: [facility] [place] Specimen: [id number] Received: 06/03/18927 Spec Type: ENDOM BX/C TISSUES 1 TISSUES: A. Endometrium, NOS B. Exocervix COMMENT Case has been reviewed in consultation with Dr. Faulkner who concurs with the above diagnosis. IDC:AM GROSS DESCRIPTION A - Received in fixative is one container labeled with the patient's name and designated endometrial curettings and endometrial polyps. The specimen consists of multiple fragments of hemorrhagic soft tissue that in aggregate measure 5 x 3 x 0.6 cm. Also present in the container are two polypoid pieces of collins soft tissue measuring 2.5 x 2 x 0.5 cm and 2.5 x 1 x 0.5 cm. The polypoid pieces are bisected. The entire specimen is submitted in eight cassettes. Cassettes 1-3 contain the polypoid pieces. B - Received in fixative is one container labeled with the patient's name and designated endocervical polyps. The specimen consists of multiple pieces of collins-pink polypoid mucoid tissue that in aggregate measure 5 x 3 x 0.3 cm. The entire specimen is submitted in two cassettes. / MARGI:nabeel 06/03/18 TC:5 CPT: 49777 x2 HEADER OPERATION: Hysteroscopy, dilation and curettage, endometrial and cervical PRE-OP DIAGNOSIS: Acute posthemorrhagic anemia, postmenopausal bleeding, thickened lining on US TISSUE SUBMITTED: A - Endometrial curettings, endometrial polyps, B - Exocervical curettings MICROSCOPIC DESCRIPTION Slides are reviewed. MICROSCOPIC DIAGNOSIS A. Endometrial curettings and endometrial polyps: Fragments of benign endometrial polyps with extensive cystic changes and focal simple cystic hyperplasia without atypia. Fragments of endometrial tissue with focal simple cystic hyperplasia, mucinous metaplasia, and glandular and stromal breakdown. B. Endocervical polyps: Fragments of mixed benign ecto- and endocervical polyp. Fragments of benign endometrial tissue. MARGI:nabeel 06/06/18 Signed Etienne Rubin MD 06/06/18 <signature on file> Performed By: #### PEMB #### [facility] [address] [place], [address] BEDSIDE GLUCOSE Collected: 06/03/2018 Status: F Source: [place] 6:[address] [facility] REPOSITORY TYPE CODE TESTS RESULT OUT OF REFERENCE UNITS RANGE LAB L501.080 70-110 mg/dL High BEDSIDE GLU 151 Result Comment: MANAGEMENT OF PATIENT CARE PER NURSING PROTOCOL Performed By: #### L501.080 #### [facility] Point of Care [address] [place], [place] [address] CHEST PA AND LATERAL Observed: 05/31/2018 Status: F Source: [place] 2:[address] [facility] REPOSITORY [facility] Imaging Services [address] [place] [address] Chest PA and Lateral MR#: [id number] Acct: [id number] Name: MARY HAYS Rep #: [id number] : 1955 F 63 From: Candelario Santiago MD PCP: Thanh Dean MD Status: PRE [facility] [place] Study: Chest PA and Lateral Date of Exam: 05/31/18 Exam# [id number] Ordering Dr: Thanh Souza MD STUDY: X-RAY CHEST REASON FOR EXAM: Female, 63 years old. Preadmission testing. TECHNIQUE: PA and lateral views of the chest. COMPARISON: None. FINDINGS: The lungs are clear and expanded. Scattered calcified granulomas. No acute infiltrate is seen. There is no demonstrated pleural abnormality. Normal size heart. Normal mediastinum and jennifer. Normal visualized pulmonary arteries. There is atherosclerotic calcification of the aortic arch with tortuosity. There are diffuse degenerative changes of the visualized thoracic spine. Normal visualized ribs, clavicles, and shoulders. There is no demonstrated abnormality of the visualized soft tissue structures of the upper abdomen. RAD/Chest PA and Lateral IMPRESSION: No acute abnormality is seen. Electronically Signed: Candelario Santiago MD at 15:26 EST Tel [phone], Service support , CC: Thanh Dean MD; Thanh Souza MD Laundry Press Operator: Signed PROTHROMBIN TIME W/INR Collected: 05/31/2018 Status: F Source: [place] 2:[address] [facility] REPOSITORY TYPE CODE TESTS RESULT OUT OF RANGE REFERENCE UNITS LAB L300.4150 11.7-14.9 SECONDS Normal PROTIME 14.4 LAB L300.4200 Normal INR 1.1 Performed By: #### L300.3900, L300.4310 #### [facility] [address] [place], [place], [id number] PARTIAL THROMBOPLAST Collected: 05/31/2018 Status: F Source: [place] TIME 2:[address] [facility] REPOSITORY TYPE CODE TESTS RESULT OUT OF RANGE REFERENCE UNITS LAB L300.4310 24.1-36.2 Seconds Normal PTT 27.3 Performed By: #### L300.3900, L300.4310 #### [facility] [address] [facility]. [place], [place], [address] CBC-COMPLETE BLOOD CNT Collected: 05/31/2018 Status: F Source: [place] NO DIFF 2:[address] [facility] REPOSITORY TYPE CODE TESTS RESULT OUT OF RANGE REFERENCE UNITS LAB L100.1000 4.4-11.0 K/mm3 Normal WBC 6.3 LAB L100.1200 4.2-5.4 M/mm3 Low RBC 3.28 LAB L100.1300 12.0-15.0 g/dl Low HGB 8.3 LAB L100.1400 37-47 % Low HCT 28.1 LAB L100.1500 81-99 fL Normal MCV 85.7 LAB L100.1600 27.0-32.0 pg Low MCH 25.3 LAB L100.1700 32-36 g/gl Low MCHC 29.5 LAB L100.1810 11.6-14.6 % High RDW CV 14.9 LAB L100.1820 35.1-43.9 fl High RDW SD 45.3 LAB L100.1900 150-450 K/mm3 Normal PLT 321 LAB L100.2000 6.2-12.0 fl Normal MPV 9.6 Performed By: #### L100.0500 #### [facility] [address] [place], [address] COMPREHENSIVE METABOLIC Collected: 05/31/2018 Status: F Source: [facility] 2:[address] [facility] REPOSITORY TYPE CODE TESTS RESULT OUT OF RANGE REFERENCE UNITS LAB L501.0100 74-106 mg/dL Normal GLU 102 Result Comment: Fasting Glucose result from 100 to 125 mg/dL suggests IMPAIRED HOMEOSTASIS per A.D.A. criteria. Please note revised GLUCOSE reference range effective 2017. LAB L501.1000 7-18 mg/dL Normal BUN 14 LAB L501.1100 0.55-1.02 mg/dL Normal CREAT,SERUM 0.80 Result Comment: The validity of the calculated GFR AND GFRAA in patients over 70 years has not been determined. Clinical correlation is essential. LAB L501.1110 >60 mL/min Normal EST GFR 76 Result Comment: Non- GFR Calc LAB L501.1115 >60 mL/min Normal EST GFR - AA 92 Result Comment: GFR Calc LAB L501.1255 ml/min Normal Estimated CRCL 69.09 LAB L501.1300 10-20 RATIO Normal BUN/CRE 17.4 LAB L501.1500 6.4-8. g/dL High 2 T PROT 8.3 LAB L501.1800 3.2-5. g/dL Normal 0 ALB 3.7 LAB L501.1950 2.2-4. g/dL High 2 GLOB 4.6 LAB L501.2000 0.9-2. RATIO Low 4 A/G 0.8 LAB L501.2200 8.5-10 mg/dL Normal .1 CA 9.5 LAB L501.4100 15-37 U/L Normal AST 18 LAB L501.4305 45-117 U/L Normal ALK P 76 LAB L501.4405 13-56 U/L Normal ALT 27 LAB L501.4600 0.20-1 mg/dL Normal .00 T BILI 0.30 LAB L501.5300 136-14 mmol/L Normal 5 NA 140 LAB L501.5600 3.5-5. mmol/L Normal 1 K 3.5 LAB L501.5900 98-107 mmol/L Normal CL 104 LAB L501.6100 21.0-3 mmol/L Normal 2.0 CO2 25.0 LAB L501.6200 5-15 Normal GAP 11 Performed By: #### L500.4050 #### [facility] [address] [facility] [place], [address] TYPE AND SCREEN Collected: 05/31/2018 Status: F Source: [place] 2:[address] [facility] REPOSITORY Order Comment: Reason for Type AND Screen/Red Cells: SURGERY Surgery Date: 06/03/18 Type of Surgery: D AND C TYPE CODE TESTS RESULT OUT OF RANGE REFERENCE UNITS LAB B10.0800 O Normal BLOOD TYPE GEL POSITIVE LAB B100.4000 Normal Antibody NEGATIVE Screen Performed By: #### B101.7450 #### [facility] [address] [facility] [place], [address] DISCHARGE SUMMARY Observed: 05/16/2018 Status: F Source: [place] 8:[address] 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 with menorrhagia. passing clots and inc bleeding in last two days prior to admission. She is postmenopausal. Admitted for Observation, and transfusion. Given Tranexamic acid, two doses of IV estrogen., and 4 units pRBCs. Hemoglobin initially 7.5 g/dl. after four units, remains stable at 7.5 g/dl. Bleeding much improved, and no longer bleeding heavily or passing clots. Discharged home in stable condition. to follow up in office for EMB for further evaluation of endometrial stripe. - Physical Exam General: Alert, Oriented x3, Cooperative, No apparent distress HEENT: Atraumatic, EOMI Skin: - Vital Signs Temp Pulse Resp BP Pulse Ox 98.0 F 81 18 116/50 L 95 05/16/18 08:54 05/16/18 08:54 05/16/18 08:54 05/16/18 08:54 05/16/18 08:54 Oxygen Delivery Method Room Air Weight: 157.4 kg Body Mass Index (BMI) 54.3 Intake and Output for Last 24 Hours Intake Total 400 / 400 3983 / 3983 450 / 450 Balance 400 / 400 3983 / 3983 450 / 450 Laboratory Tests Past 24 Hrs WBC 7.5 RBC 2.71 L Hgb 7.5 L Hct 23.9 L MCV 88.2 MCH 27.7 MCHC 31.4 L RDW 15.2 H RDW Differential 46.4 H Plt Count 203 MPV 9.9 POC Glucose POC Glucose 128 H Discharge Activity: Return to Normal Activity, May Drive, May Shower, May Take a Tub Bath Call your doctor if your incision/area has: Sudden Increased Bleeding Call your doctor if you observe: Fever of 101 or Higher, Inability to urinate, Inability to have a bowel movement, Using more than one pad per hour, Shortness of breath, Dizziness, Fainting spells, Chest pain, Calf discomfort, Uncontrolled pain Home Medications: Medications to take at Discharge Amlodipine [Norvasc] 10 mg PO DAILY 02/23/17 Aspirin [Aspirin EC] 325 mg PO DAILY 02/23/17 Atenolol [Tenormin (Beta Christianne)] 100 mg PO DAILY 02/23/17 Dorzolamide 2% [Trusopt] 2 drop EACH EYE TID 02/23/17 Gabapentin [Neurontin] 300 mg PO BIDCM 02/23/17 Glimepiride [Amaryl] 1 mg PO DAILY 02/23/17 Latanoprost 0.005% [Xalatan Opthalmic] 1 drop EACH EYE QHS 02/23/17 Losartan/Hydrochlorothiazide [Hyzaar 100-25 Tablet] 1 tab PO DAILY 02/23/17 Metformin HCl [Glucophage] 1,000 mg PO BIDCM 02/23/17 Naproxen [Naprosyn] 500 mg PO BID PRN PRN 02/23/17 Pravastatin [Pravachol] 40 mg PO QHS 02/23/17 Ropinirole HCl [Requip] 1 mg PO TID 02/23/17 Furosemide [Lasix] 20 mg PO DAILY 02/26/17 Loperamide [Imodium] 2 mg PO Q2H PRN PRN 05/15/18 Norethindrone [Aygestin] 15 mg PO DAILY #30 tab 05/15/18 Following Prescrptions Were Given to Patient: Norethindrone [Aygestin] 15 mg PO DAILY #30 tab Primary Care Physician: Thanh Dean MD [Primary Care Provider] - Please Follow Up With: Thanh Souza MD - [phone] When: this week Medical Necessity - Tobacco Use Smoking Status: Never smoker Tobacco Use: Cigarettes Meaningful Use Info Meaningful Use Diagnoses (Choose all that apply): None applicable 05/16/182006 <Electronically signed by Feli Andrews MD> Date Feli Andrews MD Cosigner Signature (if applicable): Date CC: Thanh Dean MD; Feli Andrews MD Signed CBC-COMPLETE BLOOD CNT Collected: 05/16/2018 Status: F Source: [place] NO DIFF 7:[address] [facility] REPOSITORY TYPE CODE TESTS RESULT OUT OF RANGE REFERENCE UNITS LAB L100.1000 4.4-11.0 K/mm3 Normal WBC 7.5 LAB L100.1200 4.2-5.4 M/mm3 Low RBC 2.71 LAB L100.1300 12.0-15.0 g/dl Low HGB 7.5 LAB L100.1400 37-47 % Low HCT 23.9 LAB L100.1500 81-99 fL Normal MCV 88.2 LAB L100.1600 27.0-32.0 pg Normal MCH 27.7 LAB L100.1700 32-36 g/gl Low MCHC 31.4 LAB L100.1810 11.6-14.6 % High RDW CV 15.2 LAB L100.1820 35.1-43.9 fl High RDW SD 46.4 LAB L100.1900 150-450 K/mm3 Normal PLT 203 LAB L100.2000 6.2-12.0 fl Normal MPV 9.9 Performed By: #### L100.0500 #### [facility] [address] [facility] [place], [address] BEDSIDE GLUCOSE Collected: 05/16/2018 Status: F Source: [place] 6:[address] [facility] REPOSITORY TYPE CODE TESTS RESULT OUT OF REFERENCE UNITS RANGE LAB L501.080 70-110 mg/dL High BEDSIDE GLU 128 Result Comment: MANAGEMENT OF PATIENT CARE PER NURSING PROTOCOL Performed By: #### L501.080 #### [facility] Point of Care [address] [facility] [address] [place], [place] [address] CBC-COMPLETE BLOOD CNT Collected: 05/15/2018 Status: F Source: [place] NO DIFF 7:[address] [facility] REPOSITORY TYPE CODE TESTS RESULT OUT OF RANGE REFERENCE UNITS LAB L100.1000 4.4-11.0 K/mm3 Normal WBC 7.6 LAB L100.1200 4.2-5.4 M/mm3 Low RBC 2.93 LAB L100.1300 12.0-15.0 g/dl Low HGB 8.1 LAB L100.1400 37-47 % Low HCT 24.8 LAB L100.1500 81-99 fL Normal MCV 84.6 LAB L100.1600 27.0-32.0 pg Normal MCH 27.6 LAB L100.1700 32-36 g/gl Normal MCHC 32.7 LAB L100.1810 11.6-14.6 % High RDW CV 15.1 LAB L100.1820 35.1-43.9 fl High RDW SD 46.8 LAB L100.1900 150-450 K/mm3 Normal PLT 200 LAB L100.2000 6.2-12.0 fl Normal MPV 9.5 Performed By: #### L100.0500 #### [facility] [address] [place], [address] BEDSIDE GLUCOSE Collected: 05/15/2018 Status: F Source: [place] 9:[address] [facility] REPOSITORY TYPE CODE TESTS RESULT OUT OF REFERENCE UNITS RANGE LAB L501.080 70-110 mg/dL High BEDSIDE GLU 155 Result Comment: MANAGEMENT OF PATIENT CARE PER NURSING PROTOCOL Performed By: #### L501.080 #### [facility] Point of Care [address] [place] [address] DISCHARGE INSTRUCTION Observed: 05/15/2018 Status: F Source: [place] 8:[address] [facility] REPOSITORY [facility] Medical Records Department [address] [place] [address] Instructions for Home/Discharge Instructions 05/15/18 0836 MR#: [id number] Acct: [id number] Name: MARY HAYS Rep #: [id number] : 1955 63 From: Thanh Souza MD PCP: Thanh Dean MD Status: ADM IN - Discharge Diagnoses Current Active Problems: Current Active and Chronic Problems Post-menopausal bleeding (Acute) You will use the following diet at home:: No restrictions Your food should be the consistency of: Regular Discharge Activity: Return to Normal Activity, May Drive, May Shower, May Take a Tub Bath Call your doctor if your incision/area has: Sudden Increased Bleeding Call your doctor if you observe: Fever of 101 or Higher, Inability to urinate, Inability to have a bowel movement, Using more than one pad per hour, Shortness of breath, Dizziness, Fainting spells, Chest pain, Calf discomfort, Uncontrolled pain Allergies/Adverse Reactions: Allergies Penicillins Allergy (Verified 02/23/17 17:02) Rash Medications to take at Discharge Amlodipine [Norvasc] 10 mg PO DAILY 02/23/17 Aspirin [Aspirin EC] 325 mg PO DAILY 02/23/17 Atenolol [Tenormin (Beta Christianne)] 100 mg PO DAILY 02/23/17 Dorzolamide 2% [Trusopt] 2 drop EACH EYE TID 02/23/17 Gabapentin [Neurontin] 300 mg PO BIDCM 02/23/17 Glimepiride [Amaryl] 1 mg PO DAILY 02/23/17 Latanoprost 0.005% [Xalatan Opthalmic] 1 drop EACH EYE QHS 02/23/17 Losartan/Hydrochlorothiazide [Hyzaar 100-25 Tablet] 1 tab PO DAILY 02/23/17 Metformin HCl [Glucophage] 1,000 mg PO BIDCM 02/23/17 Naproxen [Naprosyn] 500 mg PO BID PRN PRN 02/23/17 Pravastatin [Pravachol] 40 mg PO QHS 02/23/17 Ropinirole HCl [Requip] 1 mg PO TID 02/23/17 Furosemide [Lasix] 20 mg PO DAILY 02/26/17 Norethindrone [Aygestin] 15 mg PO DAILY #30 tab 05/15/18 The following prescriptions were given: Norethindrone [Aygestin] 15 mg PO DAILY #30 tab Primary Care Physician: Thanh Dean MD [Primary Care Provider] - Test Results: Test results from this visit will be discussed in further detail at your follow-up appointment, if applicable. Please Follow Up With: Thanh Souza MD - [phone] When: this week Proposed Discharge Date: 05/15/18 05/15/18 0838 <Electronically signed by Thanh Souza MD> Date Thanh Souza MD CC: Thanh Dean MD CBC W/DIFF, AUTOMATED Collected: 05/15/2018 Status: F Source: [place] 5:[address] [facility] REPOSITORY TYPE CODE TESTS RESULT OUT OF RANGE REFERENCE UNITS LAB L100.1000 4.4-11.0 K/mm3 Normal WBC 5.9 LAB L100.1200 4.2-5.4 M/mm3 Low RBC 2.60 LAB L100.1300 12.0-15.0 g/dl Low HGB 7.2 LAB L100.1400 37-47 % Low HCT 22.9 LAB L100.1500 81-99 fL Normal MCV 88.1 LAB L100.1600 27.0-32.0 pg Normal MCH 27.7 LAB L100.1700 32-36 g/gl Low MCHC 31.4 LAB L100.1810 11.6-14.6 % Normal RDW CV 14.4 LAB L100.1820 35.1-43.9 fl High RDW SD 44.0 LAB L100.1900 150-450 K/mm3 Normal PLT 196 LAB L100.2000 6.2-12.0 fl Normal MPV 10.1 LAB L100.2100 47-70 % Normal NEUT% 61.0 LAB L100.2200 19-41 % Normal LY% 27.7 LAB L100.2300 0-10 % Normal MONO% 9.1 LAB L100.2400 0-5 % Normal EO% 1.7 LAB L100.2500 0-1 % Normal BASO% 0.3 LAB L100.2550 0.0-0.9 % Normal IM GRAN % 0.200 Result Comment: IG% - Immature Granulocytes (promyelocytes, myelocytes and metamyelocytes) > 1% indicates that a LEFT SHIFT is Present. LAB L100.2620 2.0-7.7 X10 3/uL Normal Absolute Neut 3.6 LAB L100.2720 0.83-4.51 X10 3/ul Normal Absolute Lymph 1.64 Performed By: #### L100.0100 #### [facility] [address] [facility] [facility] [place], [address] HISTORY AND PHYSICAL Observed: 05/14/2018 Status: F Source: [place] EXAM 6:[address] [facility] REPOSITORY [facility] Medical Records Department [address] [place] [address] History and Physical 05/14/18 1824 MR#: [id number] Acct: [id number] Name: MARY HAYS Rep #: [id number] : 1955 63 From: Thanh Souza MD PCP: Thanh Dean MD Status: ADM IN Location: MS3 [id number] Problem List (1) Post-menopausal bleeding Status: Acute History of Present Illness Date of Admission: 05/14/18 Chief Complaint: Vaginal bleeding The patient is a 63 year old F [postmenopausal for at least 5 years with onset of heavy vaginal bleeding 2 days ago. She has been passing clots and soaking through pads few times every hour. 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) Morbid obesity due to excess calories (Chronic) Allergies Penicillins Allergy (Verified 02/23/17 17:02) Rash Home Medications: Ambulatory Orders Medication Instructions Recorded Amlodipine [Norvasc] 10 mg PO DAILY 02/23/17 Aspirin [Aspirin EC] 325 mg PO DAILY 02/23/17 Atenolol [Tenormin (Beta Christianne)] 100 mg PO DAILY 02/23/17 Surgical History: - - 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, cholecystectomy, section Psychiatric History: Depression 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: - - Late menopause age 57 Primary C/S age 48 Lives: Alone Smoking Status: Never smoker Tobacco Use: Cigarettes Alcohol: None Drugs: None - *Family History Maternal History Items: - - Denies known cardiac history Paternal History Items: - - Denies known cardiac history Review of Systems Constitutional: Denies: Chills, Fever, Night Sweats, Weakness, Fatigue Eyes: Denies: Blurred vision Cardiovascular: Denies: Chest Pain, Chest Pressure, Chest Tightness, Heaviness, Light Headedness, Palpitations, Syncope Respiratory: Denies: Cough, Shortness of Breath, Wheezing Gastrointestinal: Denies: Abdominal Pain, Constipation, Diarrhea Genitourinary: Denies: Dysuria Gynecological: Reports: - - Heavfy bleeding with clots Psychiatric: Denies: Anxiety Hematologic/ Lymphatic: Denies: Easy Bleeding, Hx of blood clot, Hx of blood transfusion VTE Information - Inpt Only VTE Present on Admission: No VTE Mechan Device Prophylaxis: SCD's VTE Pharm Prophylaxis ordered?: No Patient Problems: Active and Suspected Problems Post-menopausal bleeding (Acute) Subjective: Appears comfortable in no distress Objective: Afeb VSS Hgb 7.5 - Physical Exam General: Alert, Oriented x3, Cooperative, No apparent distress Lungs: Clear to auscultation, Normal air movement Cardiovascular: Regular rate, Regular Rhythm Abdomen: Soft, Non Tender, Non-Distended, Obese Extremities: Edema - bilaterally lower extremity Neurological: Neuro grossly intact Psych/Mental Status: Normal Affect Comment: VAginal bleeding with clots present Vital Signs Temp Pulse Resp BP Pulse Ox 98.7 F 82 17 147/52 H 93 05/14/18 12:34 05/14/18 16:18 05/14/18 16:18 05/14/18 16:18 05/14/18 16:18 Oxygen Delivery Method Room Air Weight: 347 lb 0.121 oz Body Mass Index (BMI) 54.3 Laboratory Tests Past 24 Hrs WBC 5.2 RBC 2.84 L Hgb 7.5 L Hct 24.1 L MCV 84.9 MCH 26.4 L MCHC 31.1 L Assessment/Plan All Active Problems Post-menopausal bleeding (Acute) Sarcoma of right lower extremity (Resolved) Dehiscence of external surgical wound (Resolved) Post menopausal bleeding: Given single dose of transamic acid in the ER. Will stabilize lining with IV estrogen x 2 doses then switch to PO progestins on discharge home. Will need endometrial biopsy due to US findings of thickened endometrium. Likely bleeding due to endometrial hyperplasia vs endometrial carcinoma. Anemia: Will transfuse 2 units PRBC and recheck hgb in am. 05/14/181858 <Electronically signed by Thanh Souza MD> Date Thanh Souza MD Cosigner Signature: Date (if applicable) CC: Thanh Dean MD; Thanh Souza MD Signed EMERGENCY DEPARTMENT Observed: 05/14/2018 Status: F Source: [place] SUMMARY 5:[address] [facility] REPOSITORY [facility] Medical Records Department [address] [place] [address] Emergency Department Summary 05/14/18 1556 MR#: [id number] Acct: [id number] Name: BRIDGETTMARY M Rep #: [id number] : 1955 63 From: Gallo Cleary MD PCP: Thanh Dean MD Status: ADM IN - ER Visit Summary Date of Service: 05/14/18 Chief Complaint: Vaginal bleeding History of Present Illness: The patient is a 63 F who says she had about 48 pads every 24 hours for the past 2 days. She is complaining of quite a bit of vaginal bleeding with big clots. She feels weak and lightheaded. She has no abdominal pain no pelvic pain. She has no chest pain or shortness of breath. Physical Examination: Not appear in acute distress. Moist mucous membranes, no obvious facial deformity No C-spine tenderness supple neck. Regular rate and rhythm without any obvious murmurs Clear lungs bilaterally speaking in full sentences without any obvious respiratory distress Abdomen soft and nontender no guarding or rebound Pelvic exam shows some vaginal bleeding with some pulling. Moves all extremities without any difficulty or pain. Skin does not show any obvious rashes or lesions, no trauma. Alert oriented 3 with no gross focal deficit Emergency Department Course and Treatment: Patient is found to be anemic, I transfused her. I gave her tranexamic acid. We do not have any progesterone equivalents in the hospital. I discussed the patient with Dr. Souza patient will be admitted to the floor. If she worsens she will be evaluated. Disposition: Admitted in guarded condition Impression: Vaginal bleeding Anemia secondary to blood loss This note was generated with [employer] dictation software. It may contain incorrect words, spelling, and punctuation that were not noted in review of the chart prior to signing ED Disposition - Plan for ED Patient: Chief Complaint: Vag Bleeding Referrals: Thanh Dean MD [Primary Care Provider] - What to do if you have Problems For any increased pain, shortness of breath, bleeding, nausea or vomiting, chest pain, or any unexpected problems, contact your Primary Care Provider. Call [facility] ([phone]) or report to the closest Emergency Room. Call 911 if necessary. 05/14/18 4943 <Electronically signed by Gallo Cleary MD> Date Gallo Cleary MD Cosigner Signature (If Indicated): Date CC: Thanh Dean MD TYPE AND SCREEN Collected: 05/14/2018 Status: F Source: [place] 4:[address] [facility] REPOSITORY Order Comment: CMV NEG? N Number of units to transfuse: 1 Is there a >20% drop in pt's BP? N Is the pt's CVP (central venous pressure) <3 cm/H2O? N Is the EBL >/= 1000ml in adults or >/= 12ml/kg in children? Y Reason for Ordering Blood: Acute Are the blood/blood products to be transfused? Y Is the patient having/had surgery? N Has pt arrived? Y Give When? When Ready Irradiated? N Leukodepleted? Y TYPE CODE TESTS RESULT OUT OF RANGE REFERENCE UNITS LAB B10.0800 O Normal BLOOD TYPE GEL POSITIVE LAB B100.4000 Normal Antibody NEGATIVE Screen Performed By: #### B101.7450 #### [facility] [place] [place], [place], [address] RC Collected: 05/14/2018 Status: F Source: [place] 4:[address] [facility] REPOSITORY TYPE CODE TESTS RESULT OUT OF REFERENCE UNITS RANGE LAB U100.0000 [id number] TRANSFUSED PRODUCT: T AND S with Crossmatch, Red Cells COUNT: 1 Performed By: #### U100.0000 #### [facility] - refer to report for specific site RC Collected: 05/14/2018 Status: F Source: [place] 4:[address] [facility] REPOSITORY TYPE CODE TESTS RESULT OUT OF REFERENCE UNITS RANGE LAB U100.0000 [id number] TRANSFUSED PRODUCT: T AND S with Crossmatch, Red Cells COUNT: 1 Performed By: #### U100.0000 #### [facility] - refer to report for specific site RC Collected: 05/14/2018 Status: F Source: [place] 4:[address] [facility] REPOSITORY TYPE CODE TESTS RESULT OUT OF REFERENCE UNITS RANGE LAB U100.0000 [id number] TRANSFUSED PRODUCT: T AND S with Crossmatch, Red Cells COUNT: 2 Performed By: #### U100.0000 #### [facility] - refer to report for specific site CBC W/DIFF, AUTOMATED Collected: 05/14/2018 Status: F Source: [place] 1:[address] [facility] REPOSITORY TYPE CODE TESTS RESULT OUT OF RANGE REFERENCE UNITS LAB L100.1000 4.4-11.0 K/mm3 Normal WBC 5.2 LAB L100.1200 4.2-5.4 M/mm3 Low RBC 2.84 LAB L100.1300 12.0-15.0 g/dl Low HGB 7.5 LAB L100.1400 37-47 % Low HCT 24.1 LAB L100.1500 81-99 fL Normal MCV 84.9 LAB L100.1600 27.0-32.0 pg Low MCH 26.4 LAB L100.1700 32-36 g/gl Low MCHC 31.1 LAB L100.1810 11.6-14.6 % Normal RDW CV 14.4 LAB L100.1820 35.1-43.9 fl High RDW SD 44.9 LAB L100.1900 150-450 K/mm3 Normal PLT 177 LAB L100.2000 6.2-12.0 fl Normal MPV 9.6 LAB L100.2100 47-70 % Normal NEUT% 63.7 LAB L100.2200 19-41 % Normal LY% 26.5 LAB L100.2300 0-10 % Normal MONO% 7.5 LAB L100.2400 0-5 % Normal EO% 1.9 LAB L100.2500 0-1 % Normal BASO% 0.2 LAB L100.2550 0.0-0.9 % Normal IM GRAN % 0.200 Result Comment: IG% - Immature Granulocytes (promyelocytes, myelocytes and metamyelocytes) > 1% indicates that a LEFT SHIFT is Present. LAB L100.2620 2.0-7.7 X10 3/uL Normal Absolute Neut 3.3 LAB L100.2720 0.83-4.51 X10 3/ul Normal Absolute Lymph 1.37 Performed By: #### L100.0100 #### [facility] [address] [place], [address] TRANSVAGINAL Observed: 05/14/2018 Status: F Source: [place] NON- 1:[address] [facility] REPOSITORY [facility] Imaging Services [address] [place] [address] Transvaginal Non- MR#: [id number] Acct: [id number] Name: MARY HAYS Rep #: [id number] : 1955 F 63 From: Jonathan Mercado MD PCP: Thanh Dean MD Status: REG ER Study: Transvaginal Non- Date of Exam: 05/14/18 Exam# [id number] Ordering Dr: Gallo Cleary MD STUDY: ULTRASOUND TRANSVAGINAL CLINICAL: Female, 63 years old. Vaginal bleeding with large clots. TECHNIQUE: Transvaginal (Transvaginal imaging erformed for enhanced visualization of uterus and endometrium, and posterior adnexal structures). COMPARISON: None. FINDINGS: Midline anteverted uterus measures 12.0 x 5.7 x 5.9 cm. The endometrial thickness is 18.40 m, just over the upper limits of normal, with normal echotexture. There is no endometrial canal fluid. Markedly abnormal endometrium for a postmenopausal female. There are no specific masslike features within the endometrial canal. Nabothian cysts of the cervix. The right and left ovaries are not visible. The examination is limited secondary to body habitus constraints and limited mobility of the patient. There is no visible adnexal mass, cyst or free fluid. There is no visible cul-de-sac free fluid. US/Transvaginal Non- IMPRESSION: Markedly abnormal thickening of the endometrium is nonspecific. This may reflect hyperplasia. Malignancy is not excluded. ObGyn consultation is recommended. 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 Primary open angle glaucoma of both eyes, mild stage - ICD9: 365.11, 365.71, ICD10: H40.1131 (primary diagnosis) - OCT OPTIC NERVE CIRRUS OU (BOTH EYES) Use Glaucoma Medications as Directed: Current Ophthalmic Meds latanoprost (XALATAN) 0.005 % ophthalmic solution (Taking) Use 1 Drop in both eyes daily at bedtime. Use 1 drop in both eyes at 11PM dorzolamide-timolol (COSOPT) 22.3-6.8 mg/mL ophthalmic solution (Taking) Use 1 Drop in both eyes twice daily. Use 1 drop in both eyes at 7AM and 3PM The nature of glaucoma was discussed, with emphasis on the non-reversible damage to the optic nerve. Treatment options and the importance of regular examinations and testing were covered in detail, as well as the consequences of non-compliance. The patient was given the opportunity to ask questions. 2. Combined forms of age-related cataract, bilateral - ICD9: 366.19, ICD10: H25.813 Not visually significant / Observe 3. Vitreous floaters of both eyes - ICD9: 379.24, ICD10: H43.393 Patient was given both written and verbal information on flashes and floaters. Patient was instructed to call the office ([phone]) immediately upon noticing flashes of light, increase in floaters, or changes in vision. Kim Butts, OD I have confirmed and edited as necessary the relevant ophthalmic history, review of systems, surgical history, and ophthalmological examination findings as obtained by the ophthalmic technical staff. I have seen and examined Mary Hays. I have discussed the examination findings, diagnosis, and treatment options with Mary Hays and/or her family. I have also reviewed and agree with the assessment and plan as stated above and agree with all its relevant components. I gave the patient the opportunity to ask questions about the findings, diagnosis, and treatment options. PROGRESS Observed: 01/18/2018 Status: COMPLETED Source: [place] 2:47 PM [facility] REPOSITORY HNO ID: [id number] Author: Kim (Od) Lee Service: (none) Author Type: SCISSORS SHARPENER Type: Progress Notes Filed: 01/18/2018 2:55 PM Note Text: ASSESSMENT/PLAN: 1. Primary open angle glaucoma of both eyes, mild stage - ICD9: 365.11, 365.71, ICD10: H40.1131 (primary diagnosis) - VISUAL FIELD 24-2 OU (BOTH EYES) - FUNDUS PHOTOS OU (BOTH EYES) Use Glaucoma Medications as Directed: Current Ophthalmic Meds latanoprost (XALATAN) 0.005 % ophthalmic solution (Taking) Use 1 Drop in both eyes daily at bedtime, 11 PM. dorzolamide-timolol (COSOPT) 22.3-6.8 mg/mL ophthalmic solution (Taking) Use 1 Drop in both eyes twice daily. 7 AM and 3 PM. The nature of glaucoma was discussed, with emphasis on the non-reversible damage to the optic nerve. Treatment options and the importance of regular examinations and testing were covered in detail, as well as the consequences of non-compliance. The patient was given the opportunity to ask questions. 2. Type 2 diabetes mellitus without retinopathy (HCC) - ICD9: 250.00, ICD10: E11.9 Please keep your blood sugar under good control to minimize the risk of ocular complications from diabetes. Continue to manage Diabetes Mellitus under the care of Dr. Dean. 3. Combined forms of age-related cataract, bilateral - ICD9: 366.19, ICD10: H25.813 Not visually significant / Observe 4. Vitreous floaters of both eyes - ICD9: 379.24, ICD10: H43.393 Patient was given both written and verbal information on flashes and floaters. Patient was instructed to call the office ([phone]) immediately upon noticing flashes of light, increase in floaters, or changes in vision. Kim Butts, OD I have confirmed and edited as necessary the relevant ophthalmic history, review of systems, surgical history, and ophthalmological examination findings as obtained by the ophthalmic technical staff. I have seen and examined Mary Hays. I have discussed the examination findings, diagnosis, and treatment options with Mary Hays and/or her family. I have also reviewed and agree with the assessment and plan as stated above and agree with all its relevant components. I gave the patient the opportunity to ask questions about the findings, diagnosis, and treatment options. PROGRESS Observed: 08/24/2017 Status: COMPLETED Source: [place] 9:34 AM [facility] REPOSITORY O ID: [id number] Author: Kim (Od) Lee Service: (none) Author Type: SCISSORS SHARPENER Type: Progress Notes Filed: 08/24/2017 9:39 AM Note Text: ASSESSMENT/PLAN: 1. Primary open angle glaucoma of both eyes, mild stage - ICD9: 365.11, 365.71, ICD10: H40.1131 (primary diagnosis) - OCT OPTIC NERVE CIRRUS OU (BOTH EYES) Status Post Selected laser trabeculoplasty Right eye and Left eye Use Glaucoma Medications as Directed: Current Ophthalmic Meds dorzolamide-timolol (COSOPT) 22.3-6.8 mg/mL ophthalmic solution (Taking) Use 1 Drop in both eyes twice daily. 7 AM and 3 PM. latanoprost (XALATAN) 0.005 % ophthalmic solution (Taking) Use 1 Drop in both eyes daily at bedtime. 11 PM. The nature of glaucoma was discussed, with emphasis on the non-reversible damage to the optic nerve. Treatment options and the importance of regular examinations and testing were covered in detail, as well as the consequences of non-compliance. The patient was given the opportunity to ask questions. 2. Type 2 diabetes mellitus without retinopathy (HCC) - ICD9: 250.00, ICD10: E11.9 Please keep your blood sugar under good control to minimize the risk of ocular complications from diabetes. 3. Nuclear sclerotic cataract of both eyes - ICD9: 366.16, ICD10: H25.13 Not visually significant / Observe Kim Butts, OD I have confirmed and edited as necessary the relevant ophthalmic history, review of systems, surgical history, and ophthalmological examination findings as obtained by the ophthalmic technical staff. I have seen and examined Mary Hays. I have discussed the examination findings, diagnosis, and treatment options with Mary Hays and/or her family. I have also reviewed and agree with the assessment and plan as stated above and agree with all its relevant components. I gave the patient the opportunity to ask questions about the findings, diagnosis, and treatment options. CREATININE FINGERSTICK Collected: 07/29/2017 Status: F Source: [place] 4:[address] [facility] REPOSITORY TYPE CODE TESTS RESULT OUT OF RANGE REFERENCE UNITS LAB L9100.0210 0.55-1.02 mg/dL Normal CREATININE WB 0.9 Performed By: #### L9100.0200 #### [facility] Point of Care [address] [place] [address] CHEST WITH CONTRAST Observed: 07/29/2017 Status: F Source: [place] 4:[address] [facility] REPOSITORY [facility] Imaging Services [address] [place] [address] Chest WITH Contrast MR#: [id number] Acct: [id number] Name: MARY HAYS Rep #: [id number] : 1955 F 62 From: Ernie Goddard DO PCP: Thanh Dean Status: REG CLI Study: Chest WITH Contrast Date of Exam: 07/29/17 Exam# [id number] Ordering Dr: Ezio Mares STUDY: CT CHEST WITH CONTRAST REASON FOR EXAM: Female, 62 years old. Sarcoma removed from leg, history of hypertension and diabetes RADIATION DOSAGE (If Supplied By Facility): CTDIvol = ( 21.63 ) mGy, DLP = ( 706.28 ) mGycm TECHNIQUE: Transaxial imaging was performed following intravenous administration of 100 ml of Isovue 300 contrast material. Multiplanar coronal and sagittal images were reformatted. Individualized dose optimization techniques were used for this CT. COMPARISON: 12/25/2016 FINDINGS: There is minimal dependent atelectasis at the lung bases. There is no demonstrated pleural abnormality. Normal heart and pericardium. There are calcifications of the coronary arteries. There are multiple small lymph nodes within the mediastinum, which are normal in size and morphology most compatible with reactive lymph hyperplasia. Normal hilar regions. Normal enhanced pulmonary arteries. There is atherosclerotic calcification of the aortic arch with tortuosity and elongation of the aortic arch and descending thoracic aorta. There are multi-level degenerative changes of the thoracic spine. There are benign appearing axillary lymph nodes noted. There is no demonstrated abnormality of the visualized upper abdomen. CT/Chest WITH Contrast IMPRESSION: Mild basilar atelectasis. Atherosclerotic vascular changes. No focal mass or nodule. 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 REPOSITORY TYPE CODE TESTS RESULT OUT OF RANGE REFERENCE UNITS LAB L501.1000 7-18 mg/dL Normal BUN 17 Performed By: #### L501.1000, L501.1105 #### [facility] [address] [place], [place], [address] SERUM CREATININE AND Collected: 07/29/2017 Status: F Source: [place] GFR 3:[address] [facility] REPOSITORY TYPE CODE TESTS RESULT OUT OF RANGE REFERENCE UNITS LAB L501.1100 0.55-1.02 mg/dL Normal 0.64 CREAT,SERUM Result Comment: The validity of the calculated GFR AND GFRAA in patients over 70 years has not been determined. Clinical correlation is essential. LAB L501.1110 >60 mL/min Normal EST GFR 99 Result Comment: Non- GFR Calc LAB L501.1115 >60 mL/min Normal EST GFR - AA 119 Result Comment: GFR Calc Performed By: #### L501.1000, L501.1105 #### [facility] [address] [place], [place], [id number] ALLERGIES ALLERGIES DATE TYPE / CODE NAME / CODE REACTION SEVERITY SOURCE 05/31/2018 Drug Penicillins/F0010 Rash Unknown [place] Allergy/416 57079(RXNORM) Community 344089([facility] ED CT) Repository 05/31/2018 Drug suture/[id number] NONHEALING WOUND Unknown [place] Allergy/416 (RXNORM) Community 962321([facility] ED CT) Repository 07/31/2016 Drug PENICILLINS HIVES [facility] Class/[address] [place] 1003([facility] Repository CT) Drug/384726 penicillins [id number] Jew 003([facility]) System Repository ENCOUNTERS ENCOUNTERS ADMIT/DISCHARGE ACCOUNT NUMBER ADMITTING ENCOUNTER LOCATION SOURCE CLASS 06/15/2018 [id number] Ambulatory Building:[facility] Three D Repository 06/03/2018/06/03/20 [id number] Ambulatory [address] ding:SDC Repository 05/31/2018 [id number] Ambulatory [facility]MS[facility]: [facility] Repository 05/14/2018/05/16/20 [id number] KariedelaneyThanh Inpatient [address] ding:[id number] Repository : [id number]: 1 05/10/2018/05/13/20 [id number] Ambulatory [address] Repository 01/18/2018/01/21/20 [id number] Ambulatory [address] Repository 09/04/2017/09/05/19 [id number] [facility] [address] [place] [address] ding:CD:[id number] [facility] [id number]: Repository CD:[id number] 08/29/2017 [id number] [facility] ding: Repository 08/24/2017/08/26/19 [id number] Ambulatory [address] Repository 07/29/2017 [id number] [facility] ding:CT Repository 07/23/2017/08/18/19 [id number] Ambulatory [address] ding: Repository 07/16/2017/07/21/19 [id number] Ambulatory [address] ding: Repository PAYERS PAYERS ENCOUNTER GUARANTOR PAYER SUBSCRIBER SOURCE 06/03/2018 MARY MAC Primary MARY GARDUNO Insurance:MEDICAL LOZIERDOB[place] [facility] [place] [id number] [address]Hue: Number: Repository [id number] (HP) Date:5464-68-69[place] [address] [address]SW: 06/03/2018 Secondary NOT GIVENUNK Vikram Insurance:SELF PAY [facility] Number: Effective Repository Date:2018-05-19 05/31/2018 MARY HAYS108 Primary MARY GARDUNO Insurance:MEDICAL LOZIERDOB: [facility] [place] [id number] [address]Yvp: Number: Repository [id number] (HP) Date:3643-58-88XM [address] [address]ZS: 05/31/2018 Secondary NOT GIVENUNK Rydal Insurance:SELF PAY [facility] Number: Effective Repository Date:2018-05-31 05/14/2018 MARY MAC Primary MARY GARDUNO Insurance:MEDICAL LOZIERDOB: [facility] [place] [id number] [address]Ibi: Number: Repository [id number] (HP) Date:6914-52-57US [address] [address]CA: 05/14/2018 Secondary NOT GIVENUNK Rydal Insurance:SELF PAY [facility] Number: Effective Repository Date:2018-05-14 09/04/2017 MARY Mc Primary MARY Bob LOZIERDOB: Insurance:Medical LOZIERDOB: [facility] Number: [id number] System GARDUNO Effective S DANAE Repository [facility], Date:2017-09-04 - [place], [place] [id number] [place] [address]Tyr: Name:Medical [facility] [address]Rqp: [address] (HP) [id number]: [phone]) (HP) [phone] (WP) 08/29/2017 MARY MAC Primary MARY Garduno Insurance:MEDICAL LOZIERDOB: [address] [place] [address]Vrz: Number: Repository [id number] (HP) Date:7360-06-74YY [place] [id number]: 08/29/2017 Secondary NOT GIVENUNK Rydal Insurance:SELF PAY [facility] Number: Effective Repository Date:2017-08-19 07/29/2017 MARY MAC Primary MARY Garduno Insurance:MEDICAL LOZIERDOB: [facility] [place] [id number] [place] [address]Owo: Number: Repository [id number] (HP) Date:9348-16-41YR [place] [id number]: 07/29/2017 Secondary NOT GIVENUNK Rydal Insurance:SELF PAY [facility] Number: Effective Repository Date:2017-07-22 07/23/2017 MARY MAC Primary MARY Alexandro Vikram Baltazar Garduno Insurance:MEDICAL LOZIERDOB: [address] [place] [address]Kbr: Number: Repository [id number] (HP) Date:9539-10-52GZ [place] [id number]: 07/23/2017 Secondary NOT GIVENUNK Vikram Insurance:SELF PAY [facility] Number: Effective Repository Date:2017-07-22 07/16/2017 MARY MAC Primary MARY Garduno Insurance:MEDICAL LOZIERDOB: [address] [place] [address]Owi: Number: Repository [id number] (HP) Date:6216-31-18UG [address] [place] [address]IB: 07/16/2017 Secondary NOT GIVENUNK Rydal Insurance:SELF PAY [facility] Number: Effective Repository Date:2017-06-21
== END 2018-06-03 10:27 | disposition home or self-care (01) ==
LOC: SDC 05:24 → AC 05:25
PROVIDERS: Referring Provider Obstetrics & Gynecology; Visit Provider Obstetrics & Gynecology
PROC: 0UDB8ZZ Extraction of Endometrium, Via Natural or Artificial Opening Endoscopic (ICD-10-PCS; CPT 58558; principal; 2018-06-03 07:20)
DX: N95.0 Postmenopausal bleeding (principal); N85.01 Benign endometrial hyperplasia; N84.1 Polyp of cervix uteri; E78.00 Pure hypercholesterolemia, unspecified; I25.2 Old myocardial infarction; I10 Essential (primary) hypertension; G25.81 Restless legs syndrome; E11.9 Type 2 diabetes mellitus without complications; F32.9 Major depressive disorder, single episode, unspecified; E66.01 Morbid (severe) obesity due to excess calories; Z68.43 Body mass index [BMI] 50.0-59.9, adult; Z85.828 Personal history of other malignant neoplasm of skin; Z79.84 Long term (current) use of oral hypoglycemic drugs; Z79.82 Long term (current) use of aspirin; Z79.899 Other long term (current) drug therapy
CPT/HCPCS: 58558; 71046; 80053; 82962; 85027; 85610; 85730; 86850; 86900; 88305; 93005; J7120; J2405

== ENCOUNTER 2019-04-04 20:36 | Inpatient (IN) | payer MEDICARE, OTHER, SELFPAY ==
[2019-04-04 20:37] VITALS: BP 184/78; PULSE 94; RESP 20; TEMP 37.4; O2SAT 93; BMI 48.9
[2019-04-04 20:41] VITALS: BP 150/72; PULSE 92; RESP 18; O2SAT 94
--- NOTE | 2019-04-04 20:42 | ED.RN ---
CALLED FOR EKG PER RN REQUEST, PULLED OLD EKGS FOR
[2019-04-04 21:00] VITALS: O2SAT 93
--- NOTE | 2019-04-04 21:06 | EKG12_ITS ---
Test Reason : CP Blood Pressure : / mmHG Vent. Rate : 096 BPM Atrial Rate : 096 BPM P-R Int : 172 ms QRS Dur : 160 ms QT Int : 412 ms P-R-T Axes : 056 -55 082 degrees QTc Int : 520 ms Normal sinus rhythm Right bundle branch block Left anterior fascicular block Bifascicular block Left ventricular hypertrophy with repolarization abnormality Abnormal ECG Confirmed by SOCORRO DOBSON ([id number]), legal editor ANN HANKINS ([id number]) on 04/07/2019 10:15:27 AM Referred By: KARRI Confirmed By:SOCORRO DOBSON
[2019-04-04 21:17] LABS: Absolute Lymphocyte Count 1.98 X10^3/uL (0.83-4.51); Absolute Neutrophil Count 6.1 X10^3/uL (2.0-7.7); Basophil# 0.03 X10^3/uL; Basophil% 0.3 % (0-1); Eosinophil# 0.19 X10^3/uL; Eosinophils% 2.1 % (0-5); Hematocrit 36.3 % (37-47); Hemoglobin 11.6 g/dL (12.0-15.0); Lymphocyte # 1.98 X10^3/ul (4.0); Lymphocyte % 21.6 % (19-41); Mean Corpuscular Hgb 27.4 pg (27.0-32.0); Mean Corpuscular Volume 85.8 fL (81-99); Mean Platelet Vol. 9.8 fl (6.2-12.0); Monocyte# 0.82 X10^3/uL; NRBC Flagged by Analyzer 0 % (0-5); Neutrophil % 66.6 % (47-70); Platelet Count 198 K/mm3 (150-450); RBC Distribution Width CV 13.9 % (11.6-14.6); RBC Distribution Width SD 43.7 fl (35.1-43.9); Red Blood Count 4.23 M/mm3 (4.2-5.4); White Blood Count 9.2 K/mm3 (4.4-11.0)
--- NOTE | 2019-04-04 21:20 | ED.DCSUM_ITS ---
History of Present Illness Chief Complaint: Shortness of Breath Informant: Patient Onset: Weeks Context: Gradual Onset Timing: Continuous Narrative: She is a 64-year-old female with no significant past medical history presenting with worsening cough and shortness of breath. She states she has had a cough for the 2 weeks but is been worse over the past few days. She is had yellow sputum production. When she coughs she has right-sided chest pain. Patient was feeling worse so she came to the emergency room for further evaluation. She has chronic lymphedema but noticed no increased swelling of her legs. She had no fever chills. She denies any nausea, vomiting or abdominal pain. She states she had pneumonia 7 years ago but has not had any lung problems since. She denies any other complaints at this time. 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, cholecystectomy, section Smoking Status: Never smoker - Family History Maternal Family History: Reports: - - Denies known cardiac history Paternal Family History: Reports: - - Denies known cardiac history Review of Systems All systems negative except as indicated General: Reports: Malaise Cardiovascular: Reports: Chest pain Respiratory: Reports: Dyspnea, Cough, Sputum, Dyspnea on exertion Physical Exam Vital Signs/Narrative: Vital Signs Temp Pulse Resp BP Pulse Ox 04/04/19 20:41 92 18 150/72 H 94 04/04/19 20:37 99.4 F H 94 20 H 184/78 H 93 Inital Vital Signs reviewed: Yes General: Well nourished, Well developed, Obese, No Acute Distress Head: Normocephalic, Atraumatic Eyes: Perrl, EOMI ENT: Moist mucous membranes, No rhinorrhea Neck: Supple, Nontender Cardiovascular: Regular rate, Regular rhythm, No murmurs Respiratory: No distress, Chest nontender, Diminished - Bilateral, - - Coarse breath sounds bilaterally. Negative for: Rhonchi, Wheezing Abdomen: Soft, Nontender, Nondistended, Normal bowel sounds Back: Nontender, Normal Inspection Extremities: Nontender, Edema - Significant bilateral lymphedema Skin: Normal color, No rash, - - Chronic skin changes consistent with lymphedema of the lower extremities Neurological: Alert, Oriented x3, Cranial nerves II-XII grossly intact, Normal Strength, Normal Sensation Psychological: Normal affect, Normal Mood Diagnostic/Tx/Re-eval Chest X-Ray - ED: 1 View, Read by ED Physician, Read by Radiologist, Right Infiltrate Clinical Impression(s) from Imaging Studies Chest X-Ray 04/04/19 21:25 IMPRESSION: Probable COPD. Possible mild right lung base. Electronically Signed: Gen Colby MD at 21:44 EDT , Service support , Laboratory Data 04/04/19 04/04/19 20:59 20:59 WBC 9.2 RBC 4.23 Hgb 11.6 L Hct 36.3 L MCV 85.8 MCH 27.4 MCHC 32.0 RDW Std Deviation 43.7 RDW Coeff of Lui 13.9 Plt Count 198 MPV 9.8 Immature Gran % (Auto) 0.400 Neut % (Auto) 66.6 Lymph % (Auto) 21.6 [place] % (Auto) 9.0 Eos % (Auto) 2.1 Baso % (Auto) 0.3 Absolute Neuts (auto) 6.1 Absolute Lymphs (auto) 1.98 Nucleated RBC % 0 Sodium 137 Potassium 2.9 L Chloride 100 Carbon Dioxide 27.0 Anion Gap 10 BUN 13 Creatinine 0.70 Estim Creat Clear Calc 77.92 Est GFR (MDRD) Af Amer 109 Est GFR (MDRD) Non-Af 90 BUN/Creatinine Ratio 18.7 Glucose 178 H Calcium 9.3 Troponin I < 0.015 - Rhythm Strip Rhythm Strip: Sinus Rhythm Rate: 96 Ectopy: None - EKG Initial EKG Interpretation: Sinus Rhythm, RBBB, LAFB - Sinus rhythm at a rate of 96 NM interval 172 QRS 160 QT/QTc 412/520 Left axis deviation Nonspecific T wave inversion in aVR, V1 and V2 Compared to prior EKG on 05/31/2018 left anterior fascicular block is new, - - Medical Decision Making Evaluate for worsening cough, congestion and shortness of breath. She is hemodynamically stable. She does feel hot to the touch but is afebrile. Patient's white blood cell count is normal. BMP is remarkable only for mildly low potassium and elevated glucose. Patient is a normal anion gap. She is given oral potassium replacement in the emergency room. Chest x-ray is consistent with a right lower lobe infiltrate. Patient is ambulated and dropped down to 89% on room air before she leaves her room. She is quite symptomatic with this. She will be admitted for treatment for pneumonia. She is given Rocephin and Zithromax in the emergency room. Patient is agreeable to this plan. Case discussed with medicine on-call, Dr. Edmond who is also agreeable. ED Disposition - Plan for ED Patient: Disposition: [facility] Care [facility] Diagnosis: RLL pneumonia Referrals: Thanh Dean MD [Primary Care Provider] -
[2019-04-04] MEDS: 0.9% Normal Saline 1,000 ML 1000 ML IV (21:24)
--- NOTE | 2019-04-04 21:25 | RAD_ITS ---
STUDY: X-RAY CHEST REASON FOR EXAM: Female, 64 years old. Productive cough. TECHNIQUE: Frontal and lateral views of the chest. COMPARISON: 05/31/2018. FINDINGS: There is hyperinflation of the lungs consistent with chronic obstructive lung disease (COPD). Mild asymmetric increased density in the right lung base consistent with mild infiltrate. Left lung is clear. No effusions. There is no demonstrated pleural abnormality. Normal size heart. Normal mediastinum and jennifer. Normal visualized pulmonary arteries. Normal visualized aortic arch and descending thoracic aorta. There are diffuse degenerative changes of the visualized thoracic spine. Normal visualized ribs, clavicles, and shoulders. There is no demonstrated abnormality of the visualized soft tissue structures of the upper abdomen. RAD/Chest PA and Lateral IMPRESSION: Probable COPD. Possible mild right lung base. Electronically Signed: Gen Colby MD at 21:44 EDT , Service support ,
[2019-04-04 21:31] LABS: Anion Gap 10 (5-15); BUN 13 mg/dL (7-18); BUN/Creat Ratio 18.7 RATIO (10-20); Calcium,Total 9.3 mg/dL (8.5-10.1); Chloride 100 mmol/L (98-107); EST Glomerular Filtration Rate 90 mL/min (>60); Est Glom Filt Rate - Afr Amer 109 mL/min (>60); Estimated Creatinine Clearance 77.92 ml/min; Glucose 178 mg/dL (74-106); Potassium 2.9 mmol/L (3.5-5.1); Sodium Level 137 mmol/L (136-145)
[2019-04-04 22:18] VITALS: BP 172/72; PULSE 94; RESP 20; TEMP 37.6; O2SAT 93
[2019-04-04 22:29] VITALS: O2SAT 95
--- NOTE | 2019-04-04 22:41 | HP.PCM_ITS ---
Problem List (1) Pneumonia Status: Acute Qualifiers: Pneumonia type: due to unspecified organism Laterality: right Lung location: lower lobe of lung Qualified Code(s): J18.1 - Lobar pneumonia, unspecified organism (2) Hypokalemia Status: Acute (3) CAD (coronary artery disease) Status: Chronic Qualifiers: Coronary Disease-Associated Artery/Lesion type: unspecified vessel or lesion type [place] vs. transplanted heart: unspecified whether [place] or transplanted heart Associated angina: angina presence unspecified Qualified Code(s): I25.10 - Atherosclerotic heart disease of [place] coronary artery without angina pectoris (4) HTN (hypertension) Status: Chronic Qualifiers: Hypertension type: essential hypertension Qualified Code(s): I10 - Essential (primary) hypertension (5) HLD (hyperlipidemia) Status: Chronic Qualifiers: Hyperlipidemia type: unspecified Qualified Code(s): E78.5 - Hyperlipidemia, unspecified (6) Morbid obesity Status: Chronic (7) RLS (restless legs syndrome) Status: Chronic (8) Lymphedema of both lower extremities Status: Chronic (9) 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 Patient notes that secondary to her coughing she has not been able to sleep all recently and feels extremely fatigued. Her daughter who lives with her also had recent similar symptoms although she saw her physician and there was some concern this may have been secondary to allergies. Work-up in the ED included ED ambulation 89% on RA, T 99.6, heart rate 94, BP 172/72, respiratory rate 20, 93% on room air, CBC with WC 9.5, hemoglobin 11.6, platelet 198 without shift, BMP with potassium 2.9, glucose 178, troponin less than 0.015, chest x-ray with chronic COPD changes, questionable right lung base infiltrate. In the ED patient ministered azithromycin, Rocephin, potassium 40 mg p.o. x1 supplementation as well as normal saline. Past Medical History Past Medical History (Chronic Problems): Chronic Problems Post-menopausal bleeding (Chronic) CAD (coronary artery disease) (Chronic) HTN (hypertension) (Chronic) HLD (hyperlipidemia) (Chronic) Morbid obesity (Chronic) RLS (restless legs syndrome) (Chronic) Lymphedema of both lower extremities (Chronic) Diabetes mellitus type 2 with neurological manifestations (Chronic) Morbid obesity due to excess calories (Chronic) Allergies Penicillins Allergy (Verified 04/04/19 20:36) Rash suture Allergy (Verified 04/04/19 20:36) NONHEALING WOUND Home Medications: Ambulatory Orders Medication Instructions Recorded Amlodipine [Norvasc] 10 mg PO DAILY 02/23/17 Atenolol [Tenormin (beta hernan)] 100 mg PO DAILY 02/23/17 Dorzolamide 2% [Trusopt] 2 drop EACH EYE TID 02/23/17 Gabapentin [Neurontin] 300 mg PO BIDCM 02/23/17 Glimepiride [Amaryl] 1 mg PO DAILY 02/23/17 Latanoprost 0.005% [Xalatan 1 drop EACH EYE QHS 02/23/17 Opthalmic] Losartan/Hydrochlorothiazide 1 tab PO DAILY 02/23/17 [Hyzaar 100-25 Tablet] Pravastatin [Pravachol] 40 mg PO QHS 02/23/17 Ropinirole HCl [Requip] 1 mg PO TID 02/23/17 metFORMIN HCl [Glucophage] 1,000 mg PO BIDCM 02/23/17 Furosemide [Lasix] 20 mg PO DAILY 02/26/17 Loperamide [Imodium] 2 mg PO Q2H PRN PRN 05/15/18 Surgical History: - - 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 Smoking Status: Never smoker - Patient denies any tobacco usage, secondhand smoke or any exposure at her job. Tobacco Use: Non-smoker Alcohol: None Drugs: None - *Family History Maternal History Items: Cancer - Mother with history of pancreatic cancer. Paternal History Items: Diabetes, Heart Disease Review of Systems Constitutional: Reports: Anorexia, Fever, Malaise, Weakness, Fatigue. Denies: Chills, Weight Change HEENT: Denies: Head Aches, Sinus Congestion, Sinus Drainage Cardiovascular: Reports: Edema. Denies: Chest Pain, Palpitations Respiratory: Reports: Cough, Pleuritic Pain, Shortness of Breath, Shortness of breath at rest, Shortness of breath upon exertion, Sputum production Gastrointestinal: Denies: Abdominal Pain, Nausea, Vomiting Genitourinary: Denies: Dysuria Musculoskeletal: Reports: Joint Pain. Denies: Joint Tenderness Skin: Denies: Rash, Wounds Neurological: Denies: Numbness, Tingling, Focal weakness Psychiatric: Denies: Anxiety, Depression, Homicidal Ideations, Suicidal Ideations Hematologic/ Lymphatic: Reports: Anemia. Denies: Easy Bruising, Easy Bleeding VTE Information - Inpt Only VTE Present on Admission: No VTE Mechan Device Prophylaxis: SCD's VTE Pharm Prophylaxis ordered?: Yes Patient Problems: Active and Suspected Problems RLL pneumonia (Acute) Pneumonia (Acute) Hypokalemia (Acute) Subjective: Seated upright in ED, harsh coughing upon walking in and during examination, very fatigued appearing. Objective: Physical Examination: General: awake, alert, oriented x 3 and cooperative, seated upright in the ED bed in no apparent distress, harsh coughing during exam, very fatigued appearing, ill-appearing. Skin: normal color, turgor, no icterus, cyanosis. HEENT: AT/NC, EOMI, PERRLA, dry MM, no carotid bruits or JVD noted; however, thickened neck makes examination difficult. Lungs: Severely diminished throughout, greater bilateral bases, poor effort, notable coughing elicited with deep inspiratory attempts, no obvious rales, rhonchi or wheezing. Heart: Regular rate and rhythm; no gallop, rub audible. Abdomen: soft, morbidly obese, NTTP, ND, normal BS, no HSM; however, habitus makes examination very difficult. Extremities: no cyanosis, clubbing, bilateral lower extremity chronic lymphedema. Neurological: patient awake, alert, oriented x 3; cognitive function intact; pupils equally reactive to light and accomodation; cranial nerves II-XII grossly normal, moving all 4 extremities, no focal deficits, strength severely global decrease secondary to acute presentation. Psychiatric: affect appears flat, fatigued, no acute evidence of depressive or anxiety feelings. - Physical Exam Vital Signs Temp Pulse Resp BP Pulse Ox 99.6 F H 94 20 H 172/72 H 93 04/04/19 22:18 04/04/19 22:18 04/04/19 22:18 04/04/19 22:18 04/04/19 22:18 Oxygen Delivery Method Room Air Weight: 312 lb 6.32 oz Body Mass Index (BMI) 48.9 Laboratory Tests Past 24 Hrs 04/04/19 04/04/19 20:59 20:59 WBC 9.2 RBC 4.23 Hgb 11.6 L Hct 36.3 L MCV 85.8 MCH 27.4 MCHC 32.0 RDW Std Deviation 43.7 RDW Coeff of Lui 13.9 Plt Count 198 MPV 9.8 Immature Gran % (Auto) 0.400 Neut % (Auto) 66.6 Lymph % (Auto) 21.6 [place] % (Auto) 9.0 Eos % (Auto) 2.1 Baso % (Auto) 0.3 Absolute Neuts (auto) 6.1 Absolute Lymphs (auto) 1.98 Nucleated RBC % 0 Sodium 137 Potassium 2.9 L Chloride 100 Carbon Dioxide 27.0 Anion Gap 10 BUN 13 Creatinine 0.70 Estim Creat Clear Calc 77.92 Est GFR (MDRD) Af Amer 109 Est GFR (MDRD) Non-Af 90 BUN/Creatinine Ratio 18.7 Glucose 178 H Calcium 9.3 Troponin I < 0.015 Assessment/Plan All Active Problems RLL pneumonia (Acute) Pneumonia (Acute) Hypokalemia (Acute) Sarcoma of right lower extremity (Resolved) Dehiscence of external surgical wound (Resolved) The patient is a 64 y/o F w/ PMHx: Morbid Obesity, HTN, HLD, Diabetes mellitus type II, RLS, Hx OR/CAD, Hx RLE Sarcoma who presents to the [facility] ED on 04/04/19 with history of 2 weeks of ongoing cough, fatigue, malaise, noted to progressively worsen over this last week with difficulty sleeping, worsening dyspnea, more severe with any exertional effort, subjective fever but no specific chills prompting eventual ED presentation. (1) ? Community Acquired Pneumonia: Work-up in the ED included T 99.6, heart rate 94, BP 172/72, respiratory rate 20, 93% on room air, CBC with WC 9.5, hemoglobin 11.6, platelet 198 without shift, BMP with potassium 2.9, glucose 178, troponin less than 0.015, chest x-ray with chronic COPD changes, questionable right lung base infiltrate. Will admit to [place], maintain on oxygen with wean as tolerated to room air, continue ATC duonebs, PRN albuterol, maintained on IV Rocephin and Azithromycin, HOB, IS parameters w/ pending sputum cultures, respiratory viral panel and urine antigens with repeat chest x-ray in a.m. If unremarkable repeat chest x-ray and notable findings on respiratory viral panel given labs upon presentation will de-escalate antibiotic therapy. (2) Hypokalemia: Admission K+ 2.9, supplementation given, repeat level in AM. (3) Hx OR, CAD: Notes history of prior OR, no obstructive coronary disease, maintained on aspirin, atenolol, losartan, statin regimen. (4) Hypertension: Continue home regimen including Norvasc, atenolol, Lasix, losartan, hydrochlorothiazide, PRN hydralazine. (5) Hyperlipidemia: Continue home statin regimen. (6) Diabetes mellitus type II: Hold oral home regimen, ADA diet, accu checks w/ ISS. (7) Morbid Obesity: Weight loss and lifestyle changes encouraged, nutrition consulted. (8) RLS: We will continue home Requip regimen. (9) Suspected ANN-MARIE: Patient per family does snore rather aggressively, given habitus thickened neck, high risk sleep apnea, will maintain on trending pulse oximeter. (10) DVT prophylaxis: SCDs, Lovenox. Code Visit Inpatient E&M: 61197 Init Hosp L3
[2019-04-04] MEDS: Ceftriaxone 1 GM/50 ML BAG IV (23:18)
[2019-04-04 23:44] LABS: Magnesium 1.5 mg/dL (1.6-2.6)
[2019-04-04 23:54] VITALS: BP 159/76; PULSE 100; RESP 18; TEMP 38.3; O2SAT 95
[2019-04-04 23:55] VITALS: BMI 48.4
[2019-04-05] VITALS (14 sets, daily range): BP systolic 120–151; BP diastolic 48–67; PULSE 68–80; RESP 16–18; TEMP 36.9–37.7; O2SAT 90–96; BMI 48.4
[2019-04-05] MEDS: Temazepam 15 MG Capsule PO (00:30)
[2019-04-05] MEDS: Atenolol 100 MG Tablet PO ×2 (00:32→10:49)
[2019-04-05] MEDS: Latanoprost 0.005% 1 Bottle 1 DRP EACH EYE ×2 (00:32→22:10)
[2019-04-05] MEDS: Pramipexole Di-HCl 0.5 MG Tablet PO ×4 (00:32→22:08)
[2019-04-05] MEDS: Gabapentin 300 MG Capsule PO ×3 (00:32→17:22)
[2019-04-05] MEDS: 0.9% Normal Saline 1,000 ML 125 ML IV (00:33)
[2019-04-05 05:52] LABS: Absolute Lymphocyte Count 1.73 X10^3/uL (0.83-4.51); Absolute Neutrophil Count 5.2 X10^3/uL (2.0-7.7); Basophil# 0.03 X10^3/uL; Basophil% 0.4 % (0-1); Eosinophil# 0.12 X10^3/uL; Eosinophils% 1.5 % (0-5); Hematocrit 33.2 % (37-47); Hemoglobin 10.3 g/dL (12.0-15.0); Lymphocyte # 1.73 X10^3/ul (4.0); Lymphocyte % 21.8 % (19-41); Mean Corpuscular Volume 87.1 fL (81-99); Mean Platelet Vol. 9.7 fl (6.2-12.0); Monocyte# 0.81 X10^3/uL; Monocyte% 10.2 % (0-10); NRBC Flagged by Analyzer 0 % (0-5); Neutrophil # 5.23 X10^3/uL (2.7-7.7); Neutrophil % 65.8 % (47-70); Platelet Count 168 K/mm3 (150-450); RBC Distribution Width CV 14.1 % (11.6-14.6); RBC Distribution Width SD 45.1 fl (35.1-43.9); Red Blood Count 3.81 M/mm3 (4.2-5.4); White Blood Count 7.9 K/mm3 (4.4-11.0)
[2019-04-05 06:18] LABS: ALB/GLOB Ratio 0.7 RATIO (0.9-2.4); AST(SGOT) 12 U/L (15-37); Alanine Aminotransfer ALT/SGPT 18 U/L (13-56); Albumin, Serum 2.9 g/dL (3.2-5.0); Alkaline Phosphatase 70 U/L (45-117); Anion Gap 7 (5-15); BUN 10 mg/dL (7-18); BUN/Creat Ratio 16.8 RATIO (10-20); Calcium,Total 8.7 mg/dL (8.5-10.1); Chloride 104 mmol/L (98-107); EST Glomerular Filtration Rate 108 mL/min (>60); Est Glom Filt Rate - Afr Amer 130 mL/min (>60); Globulin 4.4 g/dL (2.2-4.2); Glucose 139 mg/dL (74-106); Potassium 3.5 mmol/L (3.5-5.1); Protein, Total 7.3 g/dL (6.4-8.2); Sodium Level 138 mmol/L (136-145)
[2019-04-05] MEDS: Dorzolamide 2% 10ml Bottle 2 DRP EACH EYE ×2 (06:37→13:02)
[2019-04-05] MEDS: Ipratropium/Albuterol Sulfate 3 ML AMPUL.NEB INHALATION ×4 (06:49→19:30)
--- NOTE | 2019-04-05 07:05 | RAD_ITS ---
STUDY: X-RAY CHEST REASON FOR EXAM: Female, 64 years old. Chest pain TECHNIQUE: PA and lateral views of the chest COMPARISON: X-ray chest April 04, 2019 FINDINGS: Pulmonary vascular prominence is present. There is a consolidation. There are no pleural effusions. There is no pneumothorax. The heart is normal in size. The visualized osseous structures are within normal limits. RAD/Chest PA and Lateral IMPRESSION: Pulmonary vascular prominence. No consolidation. Electronically Signed: Liam Morfin, at 20:45 EDT Tel , Service support ,
[2019-04-05 07:25] LABS: Bedside Glucose 121 mg/dL (70-110)
[2019-04-05] MEDS: 0.9% NaCl Peripheral Flush Adult/Peds IV (07:45)
[2019-04-05] MEDS: guaiFENesin 10 ML UDC (200MG/10ML) 20 ML PO ×3 (07:46→18:29)
[2019-04-05] MEDS: Losartan Potassium 100 MG Tablet PO (09:46)
[2019-04-05] MEDS: Enoxaparin 40 MG/0.4 ML Syringe SC ×2 (09:46→22:08)
[2019-04-05] MEDS: amLODIPine 10 MG Tablet PO (09:47)
[2019-04-05] MEDS: hydroCHLOROthiazide 25 MG Tablet PO (09:47)
[2019-04-05] MEDS: Famotidine 20 MG Tablet PO ×2 (09:47→22:08)
[2019-04-05] MEDS: Furosemide 20 MG Tablet PO (09:47)
[2019-04-05] MEDS: Aspirin 81 MG TAB.CHEW PO (09:48)
--- NOTE | 2019-04-05 10:26 | PN_ITS ---
Patient Problems: Active and Suspected Problems RLL pneumonia (Acute) Pneumonia (Acute) Hypokalemia (Acute) Subjective: Feels a little bit better though not much. No issues overnight Vitals/I&O's: Vital Signs Temp Pulse Resp BP Pulse Ox 99.4 F H 78 18 151/67 H 92 04/05/19 09:50 04/05/19 09:50 04/05/19 09:50 04/05/19 09:50 04/05/19 09:50 Oxygen Flow Rate (L/min) 3 Oxygen Delivery Method Room Air Weight: 309 lb 1.409 oz Body Mass Index (BMI) 48.4 Intake and Output for Last 24 Hours 04/03/19 04/04/19 04/05/19 23:59 23:59 23:59 Intake Total 1000 / 1000 409 / 409 Balance 1000 / 1000 409 / 409 General: Alert, Oriented x3, Cooperative, No apparent distress HEENT: Atraumatic, PERRLA, EOMI, Normocephalic Oral: Moist Mucosa Neck: Supple, No JVD Lungs: Clear to auscultation, Normal air movement, No rhonchi, No wheeze, No rales, Diminished Cardiovascular: Regular rate, Regular Rhythm, Normal S1, Normal S2, No murmurs Abdomen: Soft, Non Tender, Non-Distended, No Hepato-splenomegaly Extremities: No edema, Capillary Refill Less than 3 Seconds Skin: No rashes, No breakdown Neurological: Neuro grossly intact, Sensory exam intact to light touch and pain Psych/Mental Status: Normal Affect, Appropriate Laboratory Results 04/04/19 20:59: WBC 9.2, RBC 4.23, Hgb 11.6 L, Hct 36.3 L, MCV 85.8, MCH 27.4, MCHC 32.0, RDW Std Deviation 43.7, RDW Coeff of Lui 13.9, Plt Count 198, MPV 9.8, Immature Gran % (Auto) 0.400, Neut % (Auto) 66.6, Lymph % (Auto) 21.6, [place] % (Auto) 9.0, Eos % (Auto) 2.1, Baso % (Auto) 0.3, Absolute Neuts (auto) 6.1, Absolute Lymphs (auto) 1.98, Nucleated RBC % 0 04/04/19 20:59: Sodium 137, Potassium 2.9 L, Chloride 100, Carbon Dioxide 27.0, Anion Gap 10, BUN 13, Creatinine 0.70, Estim Creat Clear Calc 77.92, Est GFR (MDRD) Af Amer 109, Est GFR (MDRD) Non-Af 90, BUN/Creatinine Ratio 18.7, Glucose 178 H, Calcium 9.3, Troponin I < 0.015 04/04/19 20:59: Magnesium 1.5 L 04/05/19 05:16: WBC 7.9, RBC 3.81 L, Hgb 10.3 L, Hct 33.2 L, MCV 87.1, MCH 27.0, MCHC 31.0 L, RDW Std Deviation 45.1 H, RDW Coeff of Lui 14.1, Plt Count 168, MPV 9.7, Immature Gran % (Auto) 0.300, Neut % (Auto) 65.8, Lymph % (Auto) 21.8, [place] % (Auto) 10.2 H, Eos % (Auto) 1.5, Baso % (Auto) 0.4, Absolute Neuts (auto) 5.2, Absolute Lymphs (auto) 1.73, Nucleated RBC % 0 04/05/19 05:16: Sodium 138, Potassium 3.5, Chloride 104, Carbon Dioxide 27.0, Anion Gap 7, BUN 10, Creatinine 0.60, Estim Creat Clear Calc 90.90, Est GFR (MD RD) Af Amer 130, Est GFR (MDRD) Non-Af 108, BUN/Creatinine Ratio 16.8, Glucose 139 H, Calcium 8.7, Total Bilirubin 0.40, AST 12 L, ALT 18, Alkaline Phosphatase 70, Total Protein 7.3, Albumin 2.9 L, Globulin 4.4 H, Albumin/Globulin Ratio 0.7 L 04/05/19 06:34: POC Glucose 121 H Current Medications Acetaminophen (Tylenol) 650 mg PO Q6H PRN PRN PRN Reason: Non-cardiac pain (mod-severe) Hydrocodone Bitart/Acetaminophen (Berne 5mg-325mg) 1 - 2 tablet PO Q6H PRN PRN PRN Reason: Pain Score 4-10/10 Al Hydroxide/Mg Hydroxide (Mylanta Ii) 15 - 30 ml PO Q4H PRN PRN PRN Reason: INDIGESTION Albuterol Sulfate (Ventolin Aerosols) 2.5 mg INHALATION Q2H PRN PRN PRN Reason: dyspnea, wheezing Albuterol/Ipratropium (Duoneb) 3 ml INHALATION Q4HWA.RT [facility] Last Admin: 04/05/19 06:49 Dose: 3 ml Documented by: Amlodipine Besylate (Norvasc) 10 mg PO DAILY [facility] Last Admin: 04/05/19 09:47 Dose: 10 mg Documented by: Aspirin (Aspirin, Baby) 81 mg PO DAILY@0800 [facility] Last Admin: 04/05/19 09:48 Dose: 81 mg Documented by: Atenolol (Tenormin (Beta Christianne)) 100 mg PO DAILY [facility] Last Admin: 04/05/19 00:32 Dose: 100 mg Documented by: Dextrose (D50w Syringe) 0 gm IV X1 PRN; Protocol PRN Reason: Hypoglycemia Dorzolamide HCl (Trusopt) 2 drop EACH EYE TID [facility] Last Admin: 04/05/19 06:37 Dose: 2 drop Documented by: Enoxaparin Sodium (Lovenox) 40 mg SC BID [facility] Last Admin: 04/05/19 09:46 Dose: 40 mg Documented by: Famotidine (Pepcid) 20 mg PO BID [facility] Last Admin: 04/05/19 09:47 Dose: 20 mg Documented by: Furosemide (Lasix) 20 mg PO DAILY [facility] Last Admin: 04/05/19 09:47 Dose: 20 mg Documented by: Gabapentin (Neurontin) 300 mg PO BIDCM [facility] Last Admin: 04/05/19 09:46 Dose: 300 mg Documented by: Glucagon () 1 mg IM .X1 PRN PRN Reason: Hypoglycemia Guaifenesin (Robitussin) 20 ml PO Q4H PRN PRN PRN Reason: COUGH Last Admin: 04/05/19 07:46 Dose: 20 ml Documented by: Hydralazine HCl (Apresoline Iv) 10 mg IV Q4H PRN PRN PRN Reason: SBP > 160 Hydrochlorothiazide (Hctz) 25 mg PO DAILY [facility] Last Admin: 04/05/19 09:47 Dose: 25 mg Documented by: Azithromycin 500 mg/ Dextrose 255 mls @ 250 mls/hr IV Q24H [facility] Stop: 04/07/19 23:02 Ceftriaxone Sodium (Rocephin) 1 gm in 50 mls @ 100 mls/hr IV Q24H [facility] Sodium Chloride () 250 mls @ 15 mls/hr IV .[id number] PRN PRN Reason: SALINE FLUSH Insulin Human Lispro (Humalog Kwikpen (Bkc)) 0 unit SC ACHS [facility]; Protocol Last Admin: 04/05/19 06:38 Dose: Not Given Documented by: Latanoprost (Xalatan Opthalmic) 1 drop EACH EYE QHS [facility] Last Admin: 04/05/19 00:32 Dose: 1 drop Documented by: Loperamide HCl (Imodium) 2 mg PO Q2H PRN PRN PRN Reason: Diarrhea Losartan Potassium (Cozaar) 100 mg PO DAILY [facility] Last Admin: 04/05/19 09:46 Dose: 100 mg Documented by: Magnesium Hydroxide (Milk Of Magnesia) 30 ml PO DAILY PRN PRN Reason: Constipation Melatonin (Melatonin) 3 mg PO QHS PRN PRN PRN Reason: INSOMNIA Morphine Sulfate () 1 - 2 mg IV Q4H PRN PRN PRN Reason: Pain Score 1-10/10 Nutritional Formula (Lactose Free) (Glucerna Shake) 120 ml PO TIDCM [facility] Last Admin: 04/05/19 09:36 Dose: Not Given Documented by: Ondansetron HCl (Zofran) 4 mg IV Q8H PRN PRN PRN Reason: NAUSEA/VOMITING Pramipexole Dihydrochloride (Mirapex) 0.5 mg PO TID [facility] Last Admin: 04/05/19 06:37 Dose: 0.5 mg Documented by: Pravastatin Sodium (Pravachol) 40 mg PO QHS [facility] Sodium Chloride () 5 - 15 ml IV UD PRN PRN Reason: SALINE FLUSH Last Admin: 04/05/19 07:45 Dose: 10 ml Documented by: Temazepam (Restoril) 15 mg PO QHS PRN PRN PRN Reason: INSOMNIA Last Admin: 04/05/19 00:30 Dose: 15 mg Documented by: Throat Lozenges (Cepacol Sore Throat Lozenge) 1 lozenge MUCOUS MEM Q2H PRN PRN PRN Reason: Sore throat or cough STROKE Vital Signs/Narrative: Vital Signs Temp Pulse Resp BP Pulse Ox 04/05/19 09:50 99.4 F H 78 18 151/67 H 92 04/05/19 09:23 80 92 04/05/19 06:49 68 16 94 04/05/19 06:44 98.5 F 69 18 131/62 H 96 Medical Necessity - Tobacco Use Smoking Status: Never smoker Tobacco Use: Non-smoker Assessment/Plan All Active Problems RLL pneumonia (Acute) Pneumonia (Acute) Hypokalemia (Acute) Sarcoma of right lower extremity (Resolved) Dehiscence of external surgical wound (Resolved) 1. Community-acquired pneumonia from gram-positive organism -Continue with Rocephin and azithromycin, she is afebrile had a leukocytosis -Chest x-ray with possible right lung base infiltrate -Continue with breathing treatments -If no significant improvement by tomorrow, can start steroids based on the appearance of COPD on the chest x-ray 2. CAD/HTN/HLD/morbid obesity -Continue with aspirin, atenolol, losartan, statin -Pressures have been stable and will continue with her Norvasc as well as Lasix and hydrochlorothiazide -Lifestyle modifications were discussed about her morbid obesity with her BMI of 48 3. DM 2 -Hold her oral home regimen -Continue with Accu-Cheks AC at bedtime -Sliding scale insulin 4. Restless leg syndrome -Stable -Continue with Requip DVT: SCDs and Lovenox Code Visit Inpatient E&M: 03820 Subs Hosp L2
[2019-04-05 11:36] LABS: Bedside Glucose 147 mg/dL (70-110)
[2019-04-05] MEDS: 0.9% NaCl IVPB Med Flush (250 mL) 15 ML IV (13:07)
--- NOTE | 2019-04-05 14:40 | CASEMGMT ---
RN CM Assessment Introduced role of RN CM to patient.? Patient is alert, oriented and able?to participate in RN CM Assessment. ?Care providers, pharmacy, and demographics verified. Presentation: Cough x2 weeks, worse over the past few days and SOB Per ER MD note Admit Dx: PNA Re-Admit: No Barriers/Issues: None. H/o Rt leg sarcoma. Seen Onc in January 2019 and does not need to f/u for another nine months PCP: Thanh Dean Specialists: Onc in [place]- Dr Ray Preferred Pharmacy: [facility] Insurance: [facility], MMO Rx Benefit:?Yes ?LNOK: Sister Vanessa Webster LW/HPOA: States has both, aware not on file with [facility] and if brought in will scan on file. HPOA- Brother Thanh Epps Living Arrangements:?Lives with her 16yo Dtr in a SS home. Has a ramp to enter ADL?s: Ambulates with cane. Independent with ADLs Transportation: Patient drives herself and denies transportation issues. DME: None HHC: Past, cannot recall agency name SNF: None Goal: Home and does not think will have any needs. Denies any issues/questions/or concerns with DC planning at this time. Aware CM remains available for any emerging needs. DC PLAN: Home with no anticipated needs identified at this time. Jyotsna Nugent RNCM
--- NOTE | 2019-04-05 15:29 | CASEMGMT ---
Case Management Progress Note: Patient provided a copy of HPOA and LW, placed in patient hard chart to be scanned on file. Jyotsna Nugent RNCM
[2019-04-05 16:36] LABS: Bedside Glucose 111 mg/dL (70-110)
[2019-04-05] MEDS: Acetaminophen 325 MG Tablet 650 MG PO (17:27)
[2019-04-05] MEDS: Ceftriaxone 1 GM/50 ML BAG IV (22:04)
[2019-04-05] MEDS: Pravastatin 40 MG Tablet PO (22:08)
[2019-04-05 22:21] LABS: Bedside Glucose 127 mg/dL (70-110)
[2019-04-06 03:25] VITALS: BP 129/51; PULSE 68; RESP 18; TEMP 36.9; O2SAT 92
[2019-04-06] MEDS: guaiFENesin 10 ML UDC (200MG/10ML) 20 ML PO ×2 (06:40→13:48)
[2019-04-06] MEDS: Pramipexole Di-HCl 0.5 MG Tablet PO (06:40)
[2019-04-06] MEDS: Dorzolamide 2% 10ml Bottle 2 DRP EACH EYE (06:42)
[2019-04-06 06:45] VITALS: PULSE 69; O2SAT 92
[2019-04-06 06:48] VITALS: PULSE 68; RESP 18; O2SAT 92
[2019-04-06] MEDS: Ipratropium/Albuterol Sulfate 3 ML AMPUL.NEB INHALATION ×2 (06:48→11:27)
[2019-04-06 06:51] LABS: Bedside Glucose 145 mg/dL (70-110)
[2019-04-06 10:00] VITALS: BP 141/70; PULSE 80; RESP 16; TEMP 37.2; O2SAT 92; O2SAT 95
[2019-04-06] MEDS: Losartan Potassium 100 MG Tablet PO (10:39)
[2019-04-06] MEDS: Aspirin 81 MG TAB.CHEW PO (10:39)
[2019-04-06] MEDS: Furosemide 20 MG Tablet PO (10:39)
[2019-04-06] MEDS: Atenolol 100 MG Tablet PO (10:39)
[2019-04-06] MEDS: Gabapentin 300 MG Capsule PO (10:39)
[2019-04-06] MEDS: Famotidine 20 MG Tablet PO (10:39)
[2019-04-06] MEDS: amLODIPine 10 MG Tablet PO (10:39)
[2019-04-06] MEDS: hydroCHLOROthiazide 25 MG Tablet PO (10:39)
[2019-04-06] MEDS: Enoxaparin 40 MG/0.4 ML Syringe SC (10:40)
--- NOTE | 2019-04-06 10:46 | DCINST_ITS ---
- Discharge Diagnoses Current Active Problems: Current Active and Chronic Problems RLL pneumonia (Acute) Pneumonia (Acute) Hypokalemia (Acute) CAD (coronary artery disease) (Chronic) HTN (hypertension) (Chronic) HLD (hyperlipidemia) (Chronic) Morbid obesity (Chronic) RLS (restless legs syndrome) (Chronic) You will use the following diet at home:: Cardiac Your food should be the consistency of: Regular Your liquids should be the consistency of: Regular/Thin Discharge Activity: Return to Normal Activity Call your doctor if you observe: Fever of 101 or Higher, Shortness of breath, Dizziness, Fainting spells, Swelling in the ankles, Chest pain, Increased palpitations (irregular heartbeat) Allergies/Adverse Reactions: Allergies Penicillins Allergy (Verified 04/04/19 20:36) Rash suture Allergy (Verified 04/04/19 20:36) NONHEALING WOUND Medications to take at Discharge Amlodipine [Norvasc] 10 mg PO DAILY 02/23/17 Atenolol [Tenormin (beta hernan)] 100 mg PO DAILY 02/23/17 Dorzolamide 2% [Trusopt] 2 drop EACH EYE TID 02/23/17 Gabapentin [Neurontin] 300 mg PO BIDCM 02/23/17 Glimepiride [Amaryl] 1 mg PO DAILY 02/23/17 Latanoprost 0.005% [Xalatan Opthalmic] 1 drop EACH EYE QHS 02/23/17 Losartan/Hydrochlorothiazide [Hyzaar 100-25 Tablet] 1 tab PO DAILY 02/23/17 Pravastatin [Pravachol] 40 mg PO DAILY 02/23/17 Ropinirole HCl [Requip] 1 mg PO TID 02/23/17 metFORMIN HCl [Glucophage] 1,000 mg PO BIDCM 02/23/17 Furosemide [Lasix] 20 mg PO DAILY 02/26/17 Loperamide [Imodium] 2 mg PO Q2H PRN PRN 05/15/18 Azithromycin 500 mg PO DAILY #4 tab 04/06/19 Cefdinir [Omnicef [equiv]] 300 mg PO Q12H #10 cap 04/06/19 The following prescriptions were given: Azithromycin 500 mg PO DAILY #4 tab Transmission Status: Pending to [facility] Cefdinir [Omnicef [equiv]] 300 mg PO Q12H #10 cap Transmission Status: Pending to [facility] Primary Care Physician: Thanh Dean MD [Primary Care Provider] - Please follow up with your Primary Care Physician in: 3-5 days Test Results: Test results from this visit will be discussed in further detail at your follow- up appointment, if applicable.
[2019-04-06 11:27] VITALS: PULSE 75; RESP 18; O2SAT 95
--- NOTE | 2019-04-06 11:35 | CASEMGMT ---
YUAN BRADFORD NOTE: Reviewed PT/OT notes. Further therapy recommended. To room to talk with pt. Pt sitting up in recliner chair/awake/alert/oriented. Pt made aware of therapies recommendations. Discussed HHC and OP therapy. Pt stated may be interested in HHC or OP therapy but she does not want to make a decision today, stating, I want to think about it. Pt instructed to talk with her PCP about it if she decides she would like either HHC or OP therapy. Pt voiced understanding. Given list of HHC agencies. Pt voiced appreciation. Pat COBOS RN, CM
[2019-04-06 12:01] LABS: Bedside Glucose 162 mg/dL (70-110)
--- NOTE | 2019-04-06 14:09 | PCM.DC.SUM ---
Discharge Date and Diagnosis - Problem List Patient Problems: Active and Suspected Problems RLL pneumonia (Acute) Pneumonia (Acute) Hypokalemia (Acute) Date of Admission: 04/04/19 Date of Discharge: 04/06/19 - Primary Discharge Diagnosis Active and Suspected Problems RLL pneumonia (Acute) Pneumonia (Acute) Hypokalemia (Acute) - Secondary Discharge Diagnosis Chronic Problems Post-menopausal bleeding (Chronic) CAD (coronary artery disease) (Chronic) HTN (hypertension) (Chronic) HLD (hyperlipidemia) (Chronic) Morbid obesity (Chronic) RLS (restless legs syndrome) (Chronic) Lymphedema of both lower extremities (Chronic) 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 Possible mild right lung base. Consults: None Operations: None Procedures: None Summary of Care Provided: Per HPI: The patient is a 64 y/o F w/ PMHx: Morbid Obesity, HTN, HLD, Diabetes mellitus type II, RLS, Hx TX/CAD, Hx RLE Sarcoma who presents to the [facility] ED on 04/04/19 with history of 2 weeks of ongoing cough, fatigue, malaise, noted to progressively worsen over this last week with difficulty sleeping, worsening dyspnea, more severe with any exertional effort, subjective fever but no specific chills prompting eventual ED presentation. Patient notes that secondary to her coughing she has not been able to sleep all recently and feels extremely fatigued. Her daughter who lives with her also had recent similar symptoms although she saw her physician and there was some concern this may have been secondary to allergies. Work-up in the ED included ED ambulation 89% on RA, T 99.6, heart rate 94, BP 172/72, respiratory rate 20, 93% on room air, CBC with WC 9.5, hemoglobin 11.6, platelet 198 without shift, BMP with potassium 2.9, glucose 178, troponin less than 0.015, chest x-ray with chronic COPD changes, questionable right lung base infiltrate. In the ED patient ministered azithromycin, Rocephin, potassium 40 mg p.o. x1 supplementation as well as normal saline. Hospital Course: 1. Community-acquired pneumonia from gram-positive [id number]old female presented to the ED with 2 weeks of ongoing cough, fatigue and malaise. Chest x-ray showed a possible mild right lower lobe consolidation she was started on Rocephin and azithromycin. She has been needing intermittent oxygen overnight and not needing oxygen during the days there is also some concern for a possible ANN-MARIE given her body habitus and the history from family that she does snore. She also does endorse having daytime fatigue. Today on discharge she ambulated on room air and at rest was 95% on room air. Chest x-ray did also demonstrate probable COPD as well as possible increased vascular congestion. She is on Lasix at home at baseline which was continued. And she states that she has never smoked in her life. I do recommend that as an outpatient she follow-up for PFTs and a sleep study to evaluate for possible COPD and obstructive sleep apnea. We will continue and complete a 7-day course of antibiotics with Omnicef and azithromycin. I discussed with her the risks and benefits of discharge and she expressed understanding. She will need to follow-up with her PCP in 3 to 5 days. 2. Her other medical diagnoses were evaluated and her home medications were continued where appropriate Patient Problems: Active and Suspected Problems RLL pneumonia (Acute) Pneumonia (Acute) Hypokalemia (Acute) Objective: General: Alert, Oriented x3, Cooperative, No apparent distress HEENT: Atraumatic, PERRLA, EOMI, Normocephalic Oral: Moist Mucosa Neck: Supple, No JVD Lungs: Clear to auscultation, Normal air movement, No rhonchi, No wheeze, No rales, Diminished Cardiovascular: Regular rate, Regular Rhythm, Normal S1, Normal S2, No murmurs Abdomen: Soft, Non Tender, Non-Distended, No Hepato-splenomegaly Extremities: No edema, Capillary Refill Less than 3 Seconds Skin: No rashes, No breakdown Neurological: Neuro grossly intact, Sensory exam intact to light touch and pain Psych/Mental Status: Normal Affect, Appropriate - Physical Exam Vital Signs Temp Pulse Resp BP Pulse Ox 98.9 F 75 18 141/70 H 95 04/06/19 10:00 04/06/19 11:27 04/06/19 11:27 04/06/19 10:00 04/06/19 11:27 Oxygen Flow Rate (L/min) 1 Oxygen Delivery Method Room Air Weight: 309 lb 1.409 oz Body Mass Index (BMI) 48.4 Intake and Output for Last 24 Hours 04/04/19 04/05/19 04/06/19 23:59 23:59 23:59 Intake Total 1000 / 1000 2245.75 / 2645.75 1262.5 / 1262.5 Balance 1000 / 1000 2245.75 / 2645.75 1262.5 / 1262.5 Microbiology Past 72 Hours 04/06/19 06:30 Streptococcus pneumoniae Antigen (M - Final Urine, Clean Catch 04/06/19 06:30 Legionella Antigen - Final Urine, Clean Catch 04/05/19 00:05 Respiratory Panel (PCR) - Final Mucosa - Nasopharyngeal POC Glucose 04/06/19 04/06/19 04/05/19 11:55 06:37 22:07 POC Glucose 162 H 145 H 127 H 04/05/19 16:04 POC Glucose 111 H Discharge Activity: Return to Normal Activity Call your doctor if you observe: Fever of 101 or Higher, Shortness of breath, Dizziness, Fainting spells, Swelling in the ankles, Chest pain, Increased palpitations (irregular heartbeat) Home Medications: Medications to take at Discharge Amlodipine [Norvasc] 10 mg PO DAILY 02/23/17 Atenolol [Tenormin (beta hernan)] 100 mg PO DAILY 02/23/17 Dorzolamide 2% [Trusopt] 2 drop EACH EYE TID 02/23/17 Gabapentin [Neurontin] 300 mg PO BIDCM 02/23/17 Glimepiride [Amaryl] 1 mg PO DAILY 02/23/17 Latanoprost 0.005% [Xalatan Opthalmic] 1 drop EACH EYE QHS 02/23/17 Losartan/Hydrochlorothiazide [Hyzaar 100-25 Tablet] 1 tab PO DAILY 02/23/17 Pravastatin [Pravachol] 40 mg PO DAILY 02/23/17 Ropinirole HCl [Requip] 1 mg PO TID 02/23/17 metFORMIN HCl [Glucophage] 1,000 mg PO BIDCM 02/23/17 Furosemide [Lasix] 20 mg PO DAILY 02/26/17 Loperamide [Imodium] 2 mg PO Q2H PRN PRN 05/15/18 Azithromycin 500 mg PO DAILY #4 tab 04/06/19 Cefdinir [Omnicef [equiv]] 300 mg PO Q12H #10 cap 04/06/19 Following Prescrptions Were Given to Patient: Azithromycin 500 mg PO DAILY #4 tab Transmission Status: Received by [facility] Cefdinir [Omnicef [equiv]] 300 mg PO Q12H #10 cap Transmission Status: Received by [facility] Primary Care Physician: Thanh Dean MD [Primary Care Provider] - Please follow up with your Primary Care Physician in: 3-5 days Please Follow Up With: Thanh Dean Disposition: Home Minutes spent on discharge:: 35 Patient Condition:: Stable Medical Necessity - Tobacco Use Smoking Status: Never smoker Tobacco Use: Non-smoker Meaningful Use Info Meaningful Use Diagnoses (Choose all that apply): None applicable Code Visit Inpatient E&M: 30504 Disch Hosp
--- NOTE | 2019-04-07 16:10 | CASEMGMT ---
YUAN BRADFORD Discharge Follow-Up Phone Call. Radha: Santosh Strata: 3 Discharge Date: 04/06/19 Adm Dx: Pneumonia Call to pt to inquire about how she has been doing since being discharged from the hospital. Pt stated, I'm doing really good. Thank you. Pt states she has no questions about the discharge medications or instructions. She states the new meds were delivered to her room prior to discharge and states the nurse went over the discharge instructions good. Pt aware of follow-up appt w/Dr Dean. She denies having any questions or concerns. YUAN BRADFORD thanked pt for choosing [facility]. Pt thanked YUAN BRADFORD for calling. Pat COBOS RN, CM
== END 2019-04-06 14:40 | disposition home or self-care (01) | DRG 194 ==
LOC: ED 23:13 → MS2 23:16
PROVIDERS: Admitting Provider Family Medicine; Emergency Provider Emergency Medicine; Visit Provider Family Medicine
DX: J15.9 Unspecified bacterial pneumonia (principal); Z68.42 Body mass index [BMI] 45.0-49.9, adult; J44.0 Chronic obstructive pulmonary disease with (acute) lower respiratory infection; E87.6 Hypokalemia; I25.10 Atherosclerotic heart disease of native coronary artery without angina pectoris; I10 Essential (primary) hypertension; E78.5 Hyperlipidemia, unspecified; E66.01 Morbid (severe) obesity due to excess calories; G25.81 Restless legs syndrome; I89.0 Lymphedema, not elsewhere classified; G47.33 Obstructive sleep apnea (adult) (pediatric); E11.49 Type 2 diabetes mellitus with other diabetic neurological complication; I25.2 Old myocardial infarction; Z71.3 Dietary counseling and surveillance; Z79.84 Long term (current) use of oral hypoglycemic drugs; Z79.899 Other long term (current) drug therapy
CPT/HCPCS: 36415; 71046; 80048; 80053; 82962; 83735; 84484; 85025; 87449; 87633; 93005; 94640; 94667; 94762; 97162; 97166; 97530; 97802; 99284; J7030; J7050; A4216

== ENCOUNTER → 2020-01-08 11:53 | Outpatient (CLI) | payer MEDICARE, OTHER, SELFPAY ==
--- NOTE | 2020-01-08 12:11 | CT_ITS ---
STUDY: CT CHEST WITH CONTRAST REASON FOR EXAM: Female, 64 years old. Observation for mets/SARCOMA RT LEG REMOVED 2 YR AGO. Hx of diabetes and HTN-rx controlled. IV contrast not optimal but was given RADIATION DOSAGE (If Supplied By Facility): CTDIvol = ( 19.75 ) mGy, DLP = ( 762.09 ) mGycm TECHNIQUE: Transaxial imaging was performed following intravenous administration of IV 100mL Isovue-370. Individualized dose optimization techniques were used for this CT. COMPARISON: 07/29/2017 FINDINGS: Lung windows show the lungs to be normally expanded. No suspicious noncalcified mass or nodule. No organized infiltrate or effusion. Soft tissue windows show diffuse enlargement of the thyroid gland suggestive of goiter. No suspicious axillary, mediastinal, or perihilar lymph nodes. Normal heart and pericardium. There are calcifications of the coronary arteries. Normal mediastinum. Normal hilar regions. Normal enhanced pulmonary arteries. Normal aorta arch and descending thoracic aorta. There are multi-level degenerative changes of the thoracic spine. Limited cuts of the upper abdomen show diffuse fatty infiltration of the liver. CT/Chest WITH Contrast IMPRESSION: No superimposed infiltrate, effusion, suspicious noncalcified mass or nodule. No suspicious axillary, mediastinal, or perihilar adenopathy Stable enlarged thyroid suggestive of goiter Degenerative bony changes Fatty liver Electronically Signed: Shaheed Faye MD at 13:58 EDT , Service support ,
[2020-01-08 12:54] LABS: BUN 13 mg/dL (7-18); Creatinine, Serum 0.78 mg/dL (0.55-1.02); EST Glomerular Filtration Rate 79 mL/min (>60); Est Glom Filt Rate - Afr Amer 95 mL/min (>60)
== END ==
PROVIDERS: Referring Provider Orthopaedic Surgery; Visit Provider Orthopaedic Surgery
DX: C49.9 Malignant neoplasm of connective and soft tissue, unspecified (principal)
CPT/HCPCS: 36415; 71260; 82565; 84520; Q9967; A4216

== ENCOUNTER → 2021-02-03 14:19 | Outpatient (CLI) | payer MEDICARE, OTHER, SELFPAY ==
--- NOTE | 2021-02-03 14:30 | CT_ITS ---
STUDY: CT CHEST WITHOUT CONTRAST REASON FOR EXAM: Female, 65 years old. Chest pain, cough, history of sarcoma RADIATION DOSAGE (If Supplied By Facility): CTDIvol = ( 18.66 ) mGy, DLP = ( 662.17 ) mGycm TECHNIQUE: Transaxial imaging was performed without the administration of intravenous contrast material. Multiplanar coronal and sagittal images were reformatted. Individualized dose optimization techniques were used for this CT. COMPARISON: 01/08/2020 FINDINGS: Lung windows again show the lungs to be normally expanded. There is no superimposed acute pulmonary process. No suspicious noncalcified mass or nodule or pleural effusion. Soft tissue windows again show diffuse enlargement of the thyroid gland with goiter. Scattered subcentimeter axillary and mediastinal lymph nodes noted. No pleural or pericardial effusions. Normal heart and pericardium. There are calcifications of the coronary arteries. Normal hilar regions. Normal unenhanced pulmonary arteries. Normal aorta arch and descending thoracic aorta. There are multi-level degenerative changes of the thoracic spine. Limited cuts through the upper abdomen again show fatty liver CT/Chest without Contrast IMPRESSION: No acute pulmonary process, no suspicious noncalcified mass or nodule. No suspicious adenopathy Goiter Degenerative bony changes Fatty liver Electronically Signed: Shaheed Faye MD at 16:25 EDT , Service support ,
== END ==
PROVIDERS: PCP Nurse Practitioner Family; Referring Provider Orthopaedic Surgery; Visit Provider Orthopaedic Surgery
DX: C49.21 Malignant neoplasm of connective and soft tissue of right lower limb, including hip (principal)
CPT/HCPCS: 71250

== ENCOUNTER 2021-04-01 08:40 | Emergency (ER) | payer MEDICARE, OTHER, SELFPAY ==
[2021-04-01 08:41] VITALS: BP 203/88; PULSE 64; RESP 16; TEMP 36.8; O2SAT 99; BMI 48.4
--- NOTE | 2021-04-01 09:34 | RAD_ITS ---
STUDY: X-RAY - LUMBAR SPINE REASON FOR EXAM: Female, 66 years old. Fall. Pain. TECHNIQUE: 3 view(s) of the lumbar spine were obtained. COMPARISON: None FINDINGS: Osteopenia. Normal lumbar lordosis. There is no substantial scoliosis. 9 mm of anterolisthesis of L4 on L5. Diffuse facet sclerosis. Diffuse intervertebral disc space narrowing with osteophyte reaction. Marked vascular calcification. RAD/Lumbar Spine 2 or 3 Views IMPRESSION: Osteopenia with diffuse moderate to marked lumbosacral spondylosis. No acute abnormality. Electronically Signed: Hernan Llanos MD at 10:48 EDT , Service support ,
--- NOTE | 2021-04-01 09:34 | RAD_ITS ---
STUDY: X-RAY - PELVIS AND LEFT HIP REASON FOR EXAM: Female, 66 years old. Fall. Pain. TECHNIQUE: 3 views of the pelvis and hip. COMPARISON: None. FINDINGS: Osteopenia. There is a non-specific bowel gas pattern. Normal visualized soft tissue structures. Normal bilateral iliac wings, sacroiliac joints and visualized sacrum. Normal bilateral superior and inferior pubic rami. Normal pubic symphysis. Normal bilateral ischial tuberosities. Findings arthrosis of both hips. RAD/HIP, UNI W/ Pelvis 2-3 Views IMPRESSION: Osteopenia with mild arthrosis of both hips. No acute osseous abnormality. Electronically Signed: Hernan Llanos MD at 10:47 EDT , Service support ,
--- NOTE | 2021-04-01 09:35 | EDS_ITS ---
HPI History of Present Illness Chief Complaint: Back Narrative Narrative: 66-year-old female presenting with lower back pain. She states this has been ongoing for the past 2 weeks. She states she was cleaning and slipped and nearly fell approximately 2 weeks ago. She states she caught herself and twisted and has been having pain since that time. She has been seen by her nurse practitioner and urgent care. She continues to have pain. She denies bowel or bladder incontinence. She is able to ambulate with her cane. Denies fever. Prior similar symptoms: Yes Recent Illness/Hospitalization: No PFSH PFS Medical History (Updated 04/01/21 @ 12:[address] Tiffanie Gordillo MD) Diabetes High cholesterol HTN (hypertension) Myocardial infarct Home Medications Ropinirole Hcl [Requip] 1 mg PO TID 02/23/17 [History Last Taken 04/04/19] amlodipine 10 mg PO DAILY 02/23/17 [History Last Taken 04/04/19] atenolol 100 mg PO DAILY 02/23/17 [History Last Taken 04/03/19] dorzolamide 2 drp EACH EYE TID 02/23/17 [History Last Taken 04/04/19] gabapentin 300 mg PO BIDCM 02/23/17 [History Last Taken 04/04/19] glimepiride 1 mg PO DAILY 02/23/17 [History Last Taken 04/03/19] latanoprost 1 drp EACH EYE QHS 02/23/17 [History Last Taken 04/03/19] losartan-hydrochlorothiazide [Hyzaar] 1 tab PO DAILY 02/23/17 [History Last Taken 04/04/19] metformin 1,000 mg PO BIDCM 02/23/17 [History Last Taken 04/04/19] pravastatin 40 mg PO DAILY 02/23/17 [History Last Taken 04/04/19] furosemide 20 mg PO DAILY 02/26/17 [History Last Taken 04/04/19] loperamide 2 mg PO Q2H PRN PRN 05/15/18 [History Last Taken Unknown] azithromycin 500 mg PO DAILY #4 tab 04/06/19 [Rx Last Taken Unknown] cefdinir 300 mg PO Q12H #10 cap 04/06/19 [Rx Last Taken Unknown] oxycodone-acetaminophen [Percocet] 1 tab PO Q6H PRN 3 Days #10 tab 04/01/21 [Rx Last Taken Unknown] Allergy/AdvReac Type Severity Reaction Status Date / Time Penicillins Allergy Rash Verified 04/01/21 08:44 suture Allergy NONHEALING Verified 04/01/21 08:44 WOUND Social History Smoking Status: Never smoker ROS ROS ED Constitutional Constitutional ED: Denies fever(s) Eyes Eyes: Denies change in vision ENT ENT ED: Denies rhinorrhea or sore throat Cardiovascular Cardiovascular: Denies chest pain or palpitations Respiratory/Chest Respiratory/Chest: Denies cough or dyspnea Gastrointestinal Gastrointestinal: Denies abdominal pain, diarrhea, nausea or vomiting Genitourinary Genitourinary ED: Denies dysuria Musculoskeletal Musculoskeletal: Reports back pain; Denies myalgias Integumentary Denies rash Neurologic Neurologic: Denies headache(s), paresthesias or weakness Psychiatric Psychiatric: Denies suicidal thoughts EXAM Physical Exam Const Vital Signs: 04/01/21 08:41 04/01/21 10:47 04/01/21 12:27 Temperature 98.3 F Temperature Source Temporal Pulse Rate 64 Respiratory Rate 16 16 16 Blood Pressure 203/88 H Blood Pressure Mean 126 Pulse Ox 99 Oxygen Delivery Method Room Air Positive well nourished and well developed General Appearance ED: well developed HEENT Reports normocephalic and head/scalp atraumatic Eyes PERRL and EOMs intact bilaterally Neck supple General: Negative for tenderness Chest Wall inspection of chest normal Resp normal respiratory effort and clear to auscultation bilaterally Cardio regular rate and regular rhythm GI non-tender and non-distended Palpation: soft; Negative for guarding or rebound tenderness present no CVA tenderness Back/Spine Back/Spine Narrative: Left paraspinal lumbar muscle tenderness. No midline tenderness. Straight leg raise negative. No foot drop. Extremity normal to inspection Neuro oriented x3 and no sensory deficits noted Sensorium / Orientation: alert Motor Exam: strength 5/5 throughout Psych mental status grossly normal Skin no rashes or lesions noted MDM MDM MDM Narrative Medical decision making narrative: Patient was given morphine, Zofran. Left hip x-ray and lumbar spine x-ray read by myself and radiology and show osteopenia, no acute abnormality. Patient is resting comfortably on reevaluation. She is given prescription for Percocet. Advised to follow-up with her primary care physician. Advised return to ED for worsening complaints. 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 No acute osseous abnormality. Electronically Signed: Hernan Llanos MD at 10:47 EDT , Service support , Lumbar Spine X-Ray 04/01/21 09:34 IMPRESSION: Osteopenia with diffuse moderate to marked lumbosacral spondylosis. No acute abnormality. Electronically Signed: Hernan Llanos MD at 10:48 EDT , Service support , Discharge Plan Triage Chief Complaint: Back ED Provider: Tiffanie Gordillo Dx/Rx/DC Orders Clinical Impression: Lumbar strain Instructions: ED Back Pain (Acute or Chronic) Prescriptions: New oxycodone-acetaminophen [Percocet] 5-325 mg tablet 1 tab PO Q6H PRN (Reason: pain) 3 Days Qty: 10 RF: 0 No Action latanoprost 1 DROP bottle 1 drp Each Eye QHS RF: 0 pravastatin 40 MG tablet 40 mg PO DAILY RF: 0 atenolol 100 MG tablet 100 mg PO DAILY RF: 0 glimepiride 1 MG tablet 1 mg PO DAILY RF: 0 losartan-hydrochlorothiazide [Hyzaar] 1 TAB tablet 1 tab PO DAILY RF: 0 amlodipine 10 MG tablet 10 mg PO DAILY RF: 0 metformin 1,000 MG tablet 1,000 mg PO BIDCM RF: 0 gabapentin 300 MG capsule 300 mg PO BIDCM RF: 0 dorzolamide 1 DROP bottle 2 drp Each Eye TID RF: 0 Ropinirole Hcl [Requip] 1 MG tablet 1 mg PO TID RF: 0 furosemide 20 MG tablet 20 mg PO DAILY RF: 0 loperamide 2 MG capsule 2 mg PO Q2H PRN PRN (Reason: Diarrhea) RF: 0 cefdinir 300 MG capsule 300 mg PO Q12H Qty: 10 RF: 0 azithromycin 500 MG tablet 500 mg PO DAILY Qty: 4 RF: 0 Primary Care Provider: Glenn Gan NP Referrals: Hellinger,Glenn SPANISH INTERPRETER/TRANSLATOR, SPANISH INTERPRETER/TRANSLATOR-C [Primary Care Provider] - Disposition Disposition: Home, Self Care
[2021-04-01] MEDS: morphine 10 MG/ML Syringe 8 MG IM (09:51)
[2021-04-01] MEDS: Ondansetron 8 MG Tablet PO (09:51)
[2021-04-01 10:47] VITALS: RESP 16
[2021-04-01 12:27] VITALS: RESP 16
== END 2021-04-01 12:54 | disposition home or self-care (01) ==
PROVIDERS: Emergency Provider Emergency Medicine; PCP Nurse Practitioner Family
DX: S39.012A Strain of muscle, fascia and tendon of lower back, initial encounter (principal); X50.1XXA Overexertion from prolonged static or awkward postures, initial encounter; Y93.E9 Activity, other interior property and clothing maintenance; Y92.9 Unspecified place or not applicable; Y99.9 Unspecified external cause status; M47.817 Spondylosis without myelopathy or radiculopathy, lumbosacral region; M16.0 Bilateral primary osteoarthritis of hip; I10 Essential (primary) hypertension; I25.2 Old myocardial infarction; E78.00 Pure hypercholesterolemia, unspecified; E11.9 Type 2 diabetes mellitus without complications; Z79.84 Long term (current) use of oral hypoglycemic drugs; Z79.899 Other long term (current) drug therapy
CPT/HCPCS: 72100; 73502; 96372; 99283